=== PATIENT | female | born 1960 | race Caucasian/White ===

== ENCOUNTER 2018-10-25 23:17 | Emergency (ER) | payer OTHER ==
[~2018-10-25] VITALS: Ht 162.6 cm; Wt 68.0 kg
[~2018-10-25 23:17] MED LIST: ALBU90OI INH; BENZ100A PO; BUPR150ER; CEFD300 PO; CEPH500 PO; CEPHALEXIN; CLIN300 PO; CLON1 PO; Cleocin HCl150 MG PO; DOXY100 PO; ESTMEDA; IBUP800; INCARCERATION; METH40; OXYC5 PO; SULFAMETHOXAZOLE; SULTRIDS PO; TRIMETHOPRIM
[2018-10-26 00:01] LABS: BASOPHILS ABSOLUTE AUTO 0.06 K/mm3 (0.00-0.23); BASOPHILS PERCENT AUTO 1 % (0-2); EOSINOPHILS ABSOLUTE AUTO 0.25 K/mm3 (0.00-0.68); EOSINOPHILS PERCENT AUTO 3 % (0-6); Hematocrit 39.5 % (33.0-51.0); Hemoglobin 12.2 g/dL (11.5-16.0); IMMATURE GRAN ABSOLUTE AUTO 0.02 K/mm3 (0.00-0.10); IMMATURE GRAN PERCENT AUTO 0 % (0-1); LYMPHOCYTES ABSOLUTE AUTO 1.75 K/mm3 (0.84-5.20); LYMPHOCYTES PERCENT AUTO 21 % (21-46); MONOCYTES ABSOLUTE AUTO 0.67 K/mm3 (0.16-1.47); MONOCYTES PERCENT AUTO 8 % (4-13); Mean Corpuscular HGB 26.6 pg (26.0-34.0); Mean Corpuscular HGB Conc 30.9 g/dL (31.5-36.5); Mean Corpuscular Volume 86 fL (80-100); Mean Platelet Volume 9.4 fL (9.1-12.4); NEUTROPHILS ABSOLUTE AUTO 5.41 K/mm3 (1.96-9.15); NEUTROPHILS PERCENT AUTO 66 % (41-73); Platelet Count 257 K/mm3 (150-400); RDW Coefficient Variation 14.6 % (11.7-14.2); RDW Standard Deviation 45.9 fL (35.1-46.3); Red Blood Cell Count 4.59 M/mm3 (3.80-5.20); White Blood Cell Count 8.16 K/mm3 (4.00-11.30)
[2018-10-26] MEDS ORDERED: METH40 PO (00:04)
[2018-10-26 00:12] LABS: U Amphetamine Screen DETECTED; U Barbituate Screen Not Detected; U Benzodiazapine Screen Not Detected; U Buprenorphine Screen Not Detected; U Cannabinoids Screen Not Detected; U Cocaine Screen Not Detected; U Methadone Screen DETECTED; U Methamphetamine Screen Not Detected; U Opiates Screen Not Detected; U Oxycodone Screen Not Detected; U Phencyclidine Screen Not Detected
[2018-10-26 00:13] LABS: U Propoxyphene Screen Not Detected
[2018-10-26 00:17] LABS: Prothrombin Time Results 10.6 Sec (9.7-11.5)
[2018-10-26 00:20] LABS: Alanine Aminotransfer (ALT/SGP 77 U/L (12-78); Albumin, Blood 3.3 g/dL (3.4-5.0); Albumin/Globulin Ratio 0.7 (0.8-1.8); Alk Phos 104 U/L (50-136); Anion Gap 6 mmol/L (6-16); Aspartate Aminotrans (AST/SGOT 56 U/L (12-37); Bilirubin, Total 0.3 mg/dL (0.1-1.0); Blood Urea Nitrogen 17 mg/dL (8-24); Bun/Creatinine Ratio 23.8 (12.0-20.0); CO2, Blood 28 mmol/L (21-32); Calcium, Blood 8.7 mg/dL (8.5-10.1); Chloride, Blood 105 mmol/L (98-108); Creatinine, Blood 0.71 mg/dL (0.40-1.00); Ethanol (Alcohol), Blood, Med <3 mg/dL; Globulin, Blood 4.6 g/dL (2.2-4.0); Glomerular Filtration Rate >60 (60-); Glucose, Blood 108 mg/dL (70-99); Potassium, Blood 3.6 mmol/L (3.5-5.5); Sodium, Blood 139 mmol/L (136-145); Total Protein, Blood 7.9 g/dL (6.4-8.2)
== END 2018-10-26 01:00 | disposition short-term general hospital (02) ==
LOC: ER 23:17
PROVIDERS: Emergency Medicine
DX: I61.8 Other nontraumatic intracerebral hemorrhage (principal); Z88.8 Allergy status to other drugs, medicaments and biological substances; Z79.899 Other long term (current) drug therapy; F17.200 Nicotine dependence, unspecified, uncomplicated
CPT/HCPCS: 36415; 70450; 80053; 82947; 85025; 85610; 85730; 93005; 93010; 99285-25; G0480; J7050; P9612

== ENCOUNTER 2018-12-15 07:53 | Emergency (ER) | payer OTHER ==
[~2018-12-15] VITALS: Ht 160 cm; Wt 86.2 kg
[~2018-12-15 07:53] MED LIST changes: +METH40 PO
== END 2018-12-15 12:45 | disposition home or self-care (01) ==
LOC: ER 07:53
DX: S30.0XXA Contusion of lower back and pelvis, initial encounter (principal); F17.200 Nicotine dependence, unspecified, uncomplicated; X58.XXXA Exposure to other specified factors, initial encounter
CPT/HCPCS: 72100; 99283-25

== ENCOUNTER 2019-03-01 21:49 | Observation (INO) | payer OTHER ==
[~2019-03-01] VITALS: Ht 160 cm; Wt 69.0 kg
[2019-03-02 02:55] LABS: BASOPHILS ABSOLUTE AUTO 0.04 K/mm3 (0.00-0.23); BASOPHILS PERCENT AUTO 1 % (0-2); EOSINOPHILS ABSOLUTE AUTO 0.21 K/mm3 (0.00-0.68); EOSINOPHILS PERCENT AUTO 3 % (0-6); Hematocrit 37.4 % (33.0-51.0); Hemoglobin 11.6 g/dL (11.5-16.0); IMMATURE GRAN ABSOLUTE AUTO 0.01 K/mm3 (0.00-0.10); IMMATURE GRAN PERCENT AUTO 0 % (0-1); LYMPHOCYTES ABSOLUTE AUTO 1.68 K/mm3 (0.84-5.20); LYMPHOCYTES PERCENT AUTO 21 % (21-46); MONOCYTES ABSOLUTE AUTO 0.63 K/mm3 (0.16-1.47); MONOCYTES PERCENT AUTO 8 % (4-13); Mean Corpuscular HGB 26.2 pg (26.0-34.0); Mean Corpuscular Volume 84 fL (80-100); Mean Platelet Volume 9.6 fL (9.1-12.4); NEUTROPHILS ABSOLUTE AUTO 5.62 K/mm3 (1.96-9.15); NEUTROPHILS PERCENT AUTO 69 % (41-73); Platelet Count 323 K/mm3 (150-400); RDW Coefficient Variation 15.5 % (11.7-14.2); RDW Standard Deviation 47.8 fL (35.1-46.3); Red Blood Cell Count 4.43 M/mm3 (3.80-5.20); White Blood Cell Count 8.19 K/mm3 (4.00-11.30)
[2019-03-02 03:13] LABS: Alanine Aminotransfer (ALT/SGP 69 U/L (12-78); Albumin/Globulin Ratio 0.6 (0.8-1.8); Alk Phos 103 U/L (50-136); Anion Gap 4 mmol/L (6-16); Aspartate Aminotrans (AST/SGOT 52 U/L (12-37); Bilirubin, Total 0.5 mg/dL (0.1-1.0); Blood Urea Nitrogen 8 mg/dL (8-24); Bun/Creatinine Ratio 14.7 (12.0-20.0); CO2, Blood 29 mmol/L (21-32); Calcium, Blood 8.6 mg/dL (8.5-10.1); Chloride, Blood 105 mmol/L (98-108); Creatinine, Blood 0.54 mg/dL (0.40-1.00); Globulin, Blood 4.8 g/dL (2.2-4.0); Glomerular Filtration Rate >60 (60-); Glucose, Blood 108 mg/dL (70-99); Potassium, Blood 3.6 mmol/L (3.5-5.5); Sodium, Blood 138 mmol/L (136-145); Total Protein, Blood 7.8 g/dL (6.4-8.2)
[2019-03-02 03:27] LABS: International Normalized Ratio 0.99; Prothrombin Time Results 10.5 Sec (9.7-11.5)
[2019-03-02] MEDS ORDERED: METH10 PO (03:48)
--- NOTE | 2019-03-02 05:19 | NUR ---
PT CAME TO FLOOR AT 0410 VERY SLEEPY. SHE STATES SHE USED ABOUT "A POINT" OF HERROINE YESTERDAY AFTERNOON AT APPROX 1500 PRIOR TO BEING SEEN IN ED. SHE DOES AWAKEN ENOUGH TO ANSWERE BASIC QUESTIONS AND DOES ANWERE APPROPRIATELY. SHE IS VERY SLEEPY. VSS.
--- NOTE | 2019-03-02 05:41 | NUR ---
CALLED TO DR CROSS AND INFORMED HIM OF PT HERROINE USE. HE ORDERED URINE TOX SCREEN.
--- NOTE | 2019-03-02 07:33 | NUR ---
NOC SHIFT SUMMARY PT ADMITTED THIS NIGHT AT END OF SHIFT. SHE IS VERY SLEEPY AND DIFFICULT TO AROUSE THOUGH SHE IS AROUSABLE. PER BOYFRIEND PT USED SOME HERROIN RECENTLY. PT THEN ADMITTED TO HERROIN USE BUT STATES IT WAS YESTERDAY AT ABOUT 1500. SHE BECOMES MORE ALERT WHEN NARCAN IS DISCUSSED OR WHEN WET TOWEL IS PLACED ON FORHEAD. SHE ANSWERES QUESTIONS APPROPRIATELY. VSS. RESP EVEN AND UNLABORED, NOT SHALLOW. SHE IS ACTUALLY MORE ALERT NOW THAN SHE WAS ON ADMIT. DOES NOT APPEAR TO BE IN ANY ACUTE DISTRESS. CALLED TO HOSPITALIST AND INFORMED OF THIS. URINE TOX WAS ORDERED. REPORT TO ONCOMING RN.
--- NOTE | 2019-03-02 17:57 | NUR ---
PATIENT TO SURGERY: PATIENT TRANSFERRED TO DAY SURGERY. PATIENT EXPECTED TO BE MOVED TO PCU-12 AFTER SURGERY.
--- NOTE | 2019-03-02 19:51 | NUR ---
NURSING PCU DAYSHIFT SUMMARY: Assumed care of pt at approx 181. Arrived from HC via bed accompanied by HC staff x2. Pt arouses to physical stimuli, does not engage in conversation. R groin site, stable w/no bleed or hematoma noted. Several areas of of soft tissue swelling, redness, and heat noted along abd and outer L thigh. Family at bedside post procedure, update provided. No s/s of acute distress since arrival to unit, rpt provided to NOC RN.
[2019-03-02 20:48] LABS: U Amphetamine Screen Not Detected; U Barbituate Screen Not Detected; U Benzodiazapine Screen Not Detected; U Buprenorphine Screen Not Detected; U Cannabinoids Screen Not Detected; U Cocaine Screen Not Detected; U Methadone Screen DETECTED; U Methamphetamine Screen DETECTED; U Opiates Screen DETECTED; U Oxycodone Screen Not Detected; U Phencyclidine Screen Not Detected; U Propoxyphene Screen Not Detected
--- NOTE | 2019-03-03 07:43 | NUR ---
SHIFT SUMMARY PATIENT PLEASENT THROUGHOUT THE NIGHT BUT NOT VERY COOPERATIVE WITH LAYING STILL AND KEEPING HER RIGHT LEG STILL DURING THE RECOVERY PERIOD. HOWEVER, THERE IS NO BLEEDING OR LUMP FORMATION NOTED AT THE RIGHT GROIN SITE AT THIS TIME. PATIENT HAS RED HARD LUMPS ACCROSS ABD AND SCATTERED THROUGHOUT HER BODY. PATIENT STATED THAT THOSE HARD RED LUMPS ARE, "WHERE I SHOOT UP." PATIENT APPEARED TO SLEEP WELL THROUGHOUT MOST OF THE NIGHT. PATIENT MEDICATED FOR PAIN PER EMAR. VITAL SIGNS CHARTED. REPORT GIVEN TO ONCOMING RN.
[2019-03-03] MEDS ORDERED: ACET325 PO (13:12)
[2019-03-03] MEDS ORDERED: AMLO5 PO (13:13)
--- NOTE | 2019-03-03 15:00 | NUR ---
PT ALERT AND ORIENTED. VS HAVE REMAINED STABLE. RIGHT GROIN SITE REMAINS FREE FROM ANY HEMATOMA FORMATION OR BLEEDING. PT EDUCATED ABOUT CARE OF SITE. PT PROVIDED DISCHARGE INSTRUCTIONS AND EDUCATION. IV REMOVED. PT TAKEN OUT BY WHEELCHAIR.
== END 2019-03-03 14:59 | disposition home or self-care (01) ==
LOC: ER 21:49 → MEDS 21:50 → ER 03-02 03:47 → MEDS 03-02 03:47 → PCU 03-02 17:03 → MEDS 03-02 17:03 → PCU 03-02 17:04
PROVIDERS: Emergency Medicine; ADMIT Hospitalist
DX: I82.432 Acute embolism and thrombosis of left popliteal vein (principal); I48.0 Paroxysmal atrial fibrillation; I10 Essential (primary) hypertension; F15.11 Other stimulant abuse, in remission; Z86.73 Personal history of transient ischemic attack (TIA), and cerebral infarction without residual deficits; Z91.041 Radiographic dye allergy status; Z79.899 Other long term (current) drug therapy
CPT/HCPCS: 36415; 37191; 80053; 85025; 85610; 85730; 93971; 96374; 99152; 99153; 99284-25; C1769; C1880; G0378; J1200; J1720; J1885; J2250; J3010; J3490; J7030; Q9967

== ENCOUNTER 2019-03-09 22:23 | Emergency (ER) | payer OTHER ==
[~2019-03-09] VITALS: Ht 162.6 cm; Wt 72.1 kg
[~2019-03-09 22:23] MED LIST changes: +ACET325 PO; +AMLO5 PO; +METH10 PO
[2019-03-10] MEDS ORDERED: LISI20 PO (00:36)
== END 2019-03-10 00:50 | disposition home or self-care (01) ==
LOC: ER 22:23
DX: I82.402 Acute embolism and thrombosis of unspecified deep veins of left lower extremity (principal); I48.91 Unspecified atrial fibrillation; Z91.041 Radiographic dye allergy status; Z79.899 Other long term (current) drug therapy; F17.200 Nicotine dependence, unspecified, uncomplicated
CPT/HCPCS: 99282

== ENCOUNTER 2019-07-01 05:21 | Emergency (ER) | payer OTHER ==
[~2019-07-01] VITALS: Ht 162.6 cm; Wt 68.0 kg
[~2019-07-01 05:21] MED LIST changes: +LISI20 PO
[2019-07-01] MEDS ORDERED: Voltaren100 GM TOP (06:15)
== END 2019-07-01 06:43 | disposition home or self-care (01) ==
LOC: ER 05:21
DX: S46.911A Strain of unspecified muscle, fascia and tendon at shoulder and upper arm level, right arm, initial encounter (principal); W18.30XA Fall on same level, unspecified, initial encounter; Z86.73 Personal history of transient ischemic attack (TIA), and cerebral infarction without residual deficits; I48.91 Unspecified atrial fibrillation; F17.200 Nicotine dependence, unspecified, uncomplicated; Z88.8 Allergy status to other drugs, medicaments and biological substances
CPT/HCPCS: 73030; 96372; 99283-25; J1885

== ENCOUNTER 2019-07-20 16:37 | Emergency (ER) | payer OTHER ==
[~2019-07-20] VITALS: Ht 162.6 cm; Wt 68.0 kg
[~2019-07-20 16:37] MED LIST changes: +Voltaren100 GM TOP
[2019-07-20] MEDS ORDERED: ALBU90OI INH (17:39)
== END 2019-07-20 18:22 | disposition home or self-care (01) ==
LOC: ER 16:37
DX: R05 Cough (principal); R06.2 Wheezing; M25.511 Pain in right shoulder; F17.200 Nicotine dependence, unspecified, uncomplicated; Z88.8 Allergy status to other drugs, medicaments and biological substances
CPT/HCPCS: 71046; 94640; 99283-25; J1100

== ENCOUNTER 2019-07-28 21:00 | Emergency (ER) | payer OTHER ==
[~2019-07-28] VITALS: Ht 162.6 cm; Wt 59.0 kg
[2019-07-28] MEDS ORDERED: VOLTAREN100 GM TOP (23:12)
[2019-07-28] MEDS ORDERED: Bactrim Ds Tab1 EACH PO (23:12)
[2019-07-28] MEDS ORDERED: CEPH500 PO (23:12)
[2019-08-29] MEDS ORDERED: AMLO10 PO (10:58)
[2019-08-29] MEDS ORDERED: IBUP800 PO (10:58)
[2019-08-29] MEDS ORDERED: ZESTORETIC 20-121 EA PO (10:58)
== END 2019-07-28 23:23 | disposition home or self-care (01) ==
LOC: ER 21:00
DX: L02.415 Cutaneous abscess of right lower limb (principal); F17.200 Nicotine dependence, unspecified, uncomplicated; Z88.8 Allergy status to other drugs, medicaments and biological substances; Z86.73 Personal history of transient ischemic attack (TIA), and cerebral infarction without residual deficits
CPT/HCPCS: 10060; 99283-25; A9270-GY

== ENCOUNTER 2019-09-12 08:33 | Day surgery (SDC) | payer OTHER ==
[~2019-09-12] VITALS: Ht 157.5 cm; Wt 68.0 kg
[~2019-09-12 08:33] MED LIST changes: +AMLO10 PO; +Bactrim Ds Tab1 EACH PO; +IBUP800 PO; +VOLTAREN100 GM TOP; +ZESTORETIC 20-121 EA PO
--- NOTE | 2019-09-12 11:05 | NUR ---
PT TO RECOVERY ROOM POST PROCEDURE. PT IS DROWSY, BUT ANSWERS QUESTIONS APPROPRIATELY. PT DENIES PAIN, SOB OR NAUSEA. HR 70'S, B/P 136/81, AFEBRILE, SPO2 96% RA. R NECK ACCESS SITE NO SWELLING/HEMATOMA, MYRON AND TEGADERM DRSG INTACT-DRAINAGE MAPPED.
--- NOTE | 2019-09-12 13:20 | NUR ---
PT TOOK LUNCH WITHOUT PROBLEM. PT UP TO [facility] VOIDED 450; GAIT STEADY. PT'S SITE UNCHANGED AFTER ACTIVIY.
--- NOTE | 2019-09-12 13:40 | NUR ---
PT DRESSED WITH ASSISTANCE FROM BOYFRIEND, IV REMOVED-CANNULA INTACT.
--- NOTE | 2019-09-12 13:44 | NUR ---
PT AND BOYFRIEND RECEIVED DISCHARGE INSTRUCTIONS, MED LIST AND "AFTER CARE" INSTRUCTIONS; VERBALIZED GOOD UNDERSTANDING. PT LEFT FACILITY VIA W/C, CONDITION STABLE.
== END 2019-09-12 13:44 | disposition home or self-care (01) ==
LOC: MHTC 08:33
DX: I82.512 Chronic embolism and thrombosis of left femoral vein (principal); I82.532 Chronic embolism and thrombosis of left popliteal vein; I48.91 Unspecified atrial fibrillation; I10 Essential (primary) hypertension; F15.10 Other stimulant abuse, uncomplicated; Z88.8 Allergy status to other drugs, medicaments and biological substances; Z79.899 Other long term (current) drug therapy; Z91.041 Radiographic dye allergy status
CPT/HCPCS: 37193; 76937; 99152; 99153; C1769; C1773; C1880; C1894; J1200; J1644; J1720; J2250; J7030; Q9967

== ENCOUNTER 2019-11-11 09:36 | Emergency (ER) | payer OTHER ==
[~2019-11-11] VITALS: Ht 162.6 cm; Wt 67.1 kg
[2019-11-11] MEDS ORDERED: Cephalexin500 MG PO (12:49)
== END 2019-11-11 12:57 | disposition home or self-care (01) ==
LOC: ER 09:36
DX: L03.116 Cellulitis of left lower limb (principal); I48.91 Unspecified atrial fibrillation; Z79.899 Other long term (current) drug therapy; Z87.891 Personal history of nicotine dependence
CPT/HCPCS: 93971; 99283-25

== ENCOUNTER 2020-10-06 18:08 | Emergency (ER) | payer OTHER ==
[~2020-10-06] VITALS: Ht 160 cm; Wt 78.5 kg
[~2020-10-06 18:08] MED LIST changes: +Cephalexin500 MG PO
[2020-10-06 18:58] LABS: BASOPHILS ABSOLUTE AUTO 0.06 K/mm3 (0.00-0.23); BASOPHILS PERCENT AUTO 1 % (0-2); EOSINOPHILS ABSOLUTE AUTO 0.26 K/mm3 (0.00-0.68); EOSINOPHILS PERCENT AUTO 4 % (0-6); Hematocrit 38.7 % (33.0-51.0); Hemoglobin 11.6 g/dL (11.5-16.0); IMMATURE GRAN ABSOLUTE AUTO 0.01 K/mm3 (0.00-0.10); IMMATURE GRAN PERCENT AUTO 0 % (0-1); LYMPHOCYTES ABSOLUTE AUTO 1.47 K/mm3 (0.84-5.20); LYMPHOCYTES PERCENT AUTO 20 % (21-46); MONOCYTES ABSOLUTE AUTO 0.41 K/mm3 (0.16-1.47); MONOCYTES PERCENT AUTO 6 % (4-13); Mean Corpuscular HGB 25.7 pg (26.0-34.0); Mean Corpuscular Volume 86 fL (80-100); Mean Platelet Volume 9.6 fL (9.1-12.4); NEUTROPHILS ABSOLUTE AUTO 5.01 K/mm3 (1.96-9.15); NEUTROPHILS PERCENT AUTO 69 % (41-73); Platelet Count 325 K/mm3 (150-400); RDW Coefficient Variation 15.5 % (11.7-14.2); RDW Standard Deviation 48.2 fL (35.1-46.3); Red Blood Cell Count 4.51 M/mm3 (3.80-5.20); White Blood Cell Count 7.22 K/mm3 (4.00-11.30)
[2020-10-06 19:19] LABS: Alanine Aminotransfer (ALT/SGP 53 U/L (12-78); Albumin, Blood 3.3 g/dL (3.4-5.0); Albumin/Globulin Ratio 0.7 (0.8-1.8); Alk Phos 100 U/L (50-136); Anion Gap 6 mmol/L (6-16); Aspartate Aminotrans (AST/SGOT 43 U/L (12-37); Bilirubin, Total 0.3 mg/dL (0.1-1.0); Blood Urea Nitrogen 8 mg/dL (8-24); Bun/Creatinine Ratio 17.6 (12.0-20.0); CO2, Blood 26 mmol/L (21-32); Calcium, Blood 8.9 mg/dL (8.5-10.1); Chloride, Blood 104 mmol/L (98-108); Creatinine, Blood 0.46 mg/dL (0.40-1.00); Globulin, Blood 4.8 g/dL (2.2-4.0); Glomerular Filtration Rate >60 (60-); Glucose, Blood 155 mg/dL (70-99); Potassium, Blood 3.8 mmol/L (3.5-5.5); Sodium, Blood 136 mmol/L (136-145); Total Protein, Blood 8.1 g/dL (6.4-8.2); Troponin I <0.015 ng/mL (0.000-0.040)
== END 2020-10-06 20:31 | disposition home or self-care (01) ==
LOC: ER 18:08
PROVIDERS: Emergency Medicine
DX: R06.02 Shortness of breath (principal); R60.0 Localized edema; F15.10 Other stimulant abuse, uncomplicated; I69.359 Hemiplegia and hemiparesis following cerebral infarction affecting unspecified side; I48.91 Unspecified atrial fibrillation; Z91.041 Radiographic dye allergy status; Z88.8 Allergy status to other drugs, medicaments and biological substances; Z86.718 Personal history of other venous thrombosis and embolism; Z79.899 Other long term (current) drug therapy; Z87.891 Personal history of nicotine dependence
CPT/HCPCS: 36415; 71045; 80053; 83880; 84484; 85025; 93005; 93010; 93971; 94640; 99285-25

== ENCOUNTER 2020-10-08 03:48 | Observation (INO) | payer OTHER ==
[~2020-10-08] VITALS: Ht 160 cm; Wt 81.5 kg
[2020-10-08 04:51] LABS: BASOPHILS ABSOLUTE AUTO 0.04 K/mm3 (0.00-0.23); BASOPHILS PERCENT AUTO 0 % (0-2); EOSINOPHILS ABSOLUTE AUTO 0.04 K/mm3 (0.00-0.68); EOSINOPHILS PERCENT AUTO 0 % (0-6); Hematocrit 35.4 % (33.0-51.0); Hemoglobin 10.9 g/dL (11.5-16.0); IMMATURE GRAN ABSOLUTE AUTO 0.09 K/mm3 (0.00-0.10); IMMATURE GRAN PERCENT AUTO 1 % (0-1); LYMPHOCYTES ABSOLUTE AUTO 2.18 K/mm3 (0.84-5.20); LYMPHOCYTES PERCENT AUTO 13 % (21-46); MONOCYTES ABSOLUTE AUTO 1.05 K/mm3 (0.16-1.47); MONOCYTES PERCENT AUTO 6 % (4-13); Mean Corpuscular HGB 26.4 pg (26.0-34.0); Mean Corpuscular HGB Conc 30.8 g/dL (31.5-36.5); Mean Corpuscular Volume 86 fL (80-100); Mean Platelet Volume 9.4 fL (9.1-12.4); NEUTROPHILS ABSOLUTE AUTO 13.98 K/mm3 (1.96-9.15); NEUTROPHILS PERCENT AUTO 81 % (41-73); Platelet Count 425 K/mm3 (150-400); RDW Coefficient Variation 15.5 % (11.7-14.2); RDW Standard Deviation 48.5 fL (35.1-46.3); Red Blood Cell Count 4.13 M/mm3 (3.80-5.20); White Blood Cell Count 17.38 K/mm3 (4.00-11.30)
[2020-10-08 05:04] LABS: Anion Gap 5 mmol/L (6-16); Blood Urea Nitrogen 20 mg/dL (8-24); Bun/Creatinine Ratio 36.5 (12.0-20.0); CO2, Blood 31 mmol/L (21-32); Calcium, Blood 8.9 mg/dL (8.5-10.1); Chloride, Blood 101 mmol/L (98-108); Creatinine, Blood 0.55 mg/dL (0.40-1.00); Glomerular Filtration Rate >60 (60-); Glucose, Blood 131 mg/dL (70-99); Sodium, Blood 137 mmol/L (136-145); Troponin I <0.015 ng/mL (0.000-0.040)
[2020-10-08] MEDS ORDERED: HYDCHL12.5 PO (09:26)
[2020-10-08] MEDS ORDERED: LISI20 PO (09:26)
[2020-10-08 11:17] LABS: Hematocrit 34.7 % (33.0-51.0); Hemoglobin 10.6 g/dL (11.5-16.0)
[2020-10-08 11:38] LABS: Source, Urine Clean Catch
[2020-10-08 11:41] LABS: Appearance, Urine Clear (Clear); Bilirubin, Urine Neg (Neg); Blood, Urine Neg (Neg); Color, Urine Yellow (P-Yellow); Glucose Qualitative, Urine Neg (Neg); Ketones, Urine Neg (Neg); Leukocyte Esterase, Urine Neg (Neg); Nitrite, Urine Neg (Neg); Protein, Urine Neg (Neg); Specific Gravity, Urine 1.015 (1.003-1.022); Urobilinogen, Urine NORM (Normal)
[2020-10-08 11:58] LABS: U Amphetamine Screen Not Detected; U Barbituate Screen Not Detected
[2020-10-08 11:59] LABS: U Benzodiazapine Screen Not Detected; U Buprenorphine Screen Not Detected; U Cannabinoids Screen Not Detected; U Cocaine Screen Not Detected; U Methadone Screen Not Detected; U Methamphetamine Screen DETECTED; U Opiates Screen DETECTED; U Oxycodone Screen Not Detected; U Phencyclidine Screen Not Detected; U Propoxyphene Screen Not Detected
[2020-10-08 16:53] LABS: Hematocrit 36.1 % (33.0-51.0)
--- NOTE | 2020-10-08 19:09 | NUR ---
SHIFT SUMMARY TRESA DENIED PAIN THIS SHIFT. UP TO BSC WITH AO1/2. HAS L SIDE DEFICIT FROM PRIOR STROKE. 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 NO OPEN WOUNDS. PER INF CONTROL, NO NEED FOR ISO. PT FULLY ORIENTED. ON 3 L OXYGEN. NO EMESIS THIS SHIFT. GI CONSULT CALLED FOR COFFEE GROUND EMESIS, DR BAZZI AWARE. TELE SHOWING NSR. TOOK MEDS PRESCRIBED. CALL LIGHT IN REACH, BED ALARM ON, GIVING REPORT TO NIGHT NURSE
[2020-10-09 04:55] LABS: BASOPHILS ABSOLUTE AUTO 0.03 K/mm3 (0.00-0.23); BASOPHILS PERCENT AUTO 0 % (0-2); EOSINOPHILS ABSOLUTE AUTO 0.05 K/mm3 (0.00-0.68); EOSINOPHILS PERCENT AUTO 0 % (0-6); Hematocrit 34.1 % (33.0-51.0); Hemoglobin 10.3 g/dL (11.5-16.0); IMMATURE GRAN ABSOLUTE AUTO 0.06 K/mm3 (0.00-0.10); IMMATURE GRAN PERCENT AUTO 1 % (0-1); LYMPHOCYTES ABSOLUTE AUTO 2.82 K/mm3 (0.84-5.20); LYMPHOCYTES PERCENT AUTO 24 % (21-46); MONOCYTES ABSOLUTE AUTO 0.77 K/mm3 (0.16-1.47); MONOCYTES PERCENT AUTO 7 % (4-13); Mean Corpuscular HGB 25.4 pg (26.0-34.0); Mean Corpuscular HGB Conc 30.2 g/dL (31.5-36.5); Mean Corpuscular Volume 84 fL (80-100); Mean Platelet Volume 9.1 fL (9.1-12.4); NEUTROPHILS PERCENT AUTO 68 % (41-73); Platelet Count 332 K/mm3 (150-400); RDW Coefficient Variation 15.6 % (11.7-14.2); RDW Standard Deviation 48.4 fL (35.1-46.3); Red Blood Cell Count 4.05 M/mm3 (3.80-5.20); White Blood Cell Count 11.63 K/mm3 (4.00-11.30)
[2020-10-09 05:12] LABS: Anion Gap 5 mmol/L (6-16); Blood Urea Nitrogen 20 mg/dL (8-24); Bun/Creatinine Ratio 32.2 (12.0-20.0); CO2, Blood 30 mmol/L (21-32); Calcium, Blood 8.8 mg/dL (8.5-10.1); Chloride, Blood 102 mmol/L (98-108); Creatinine, Blood 0.62 mg/dL (0.40-1.00); Glomerular Filtration Rate >60 (60-); Glucose, Blood 105 mg/dL (70-99); Potassium, Blood 4.2 mmol/L (3.5-5.5); Sodium, Blood 137 mmol/L (136-145)
--- NOTE | 2020-10-09 06:12 | NUR ---
SHIFT SUMMARY PT IS A 59 Y/O FEMALE, ADMITTED FOR ACUTE RESPIRATORY FAILURE. PT IS A&O X 3, THOUGH VERY LETHARGIC. PT SLEPT WELL THROUGH THE NIGHT. NO C/O PAIN, NAUSEA OR SOB. VITAL SIGNS STABLE. NO ACUTE CHANGES IN PT CONDITION NOTED DURING THE NIGHT. WILL CONTINUE TO MONITOR AND TREAT PER EMAR UNTIL HAND OFF TO DAY SHIFT RN.
--- NOTE | 2020-10-09 15:46 | NUR ---
Spiritual care/Advance Directive education visit attempted. Upon receiving an admit referral for spiritual care and advance directive education, I visit patient. Patient tells me about the places that she lived and her race horses. She begins talking about her Ep[employer]alian tiffany and her calls. I leave the rm to let them talk and then make 3 more attmpts later in the day to respond to the referrals and patient is on the phone all 3 times. I will reach out again next day.
[2020-10-09] MEDS ORDERED: NORVASC10 MG PO (16:17)
[2020-10-09] MEDS ORDERED: ALBU90OI INH (16:18)
[2020-10-09] MEDS ORDERED: FAMO40 PO (16:19)
--- NOTE | 2020-10-09 18:25 | NUR ---
DISCHARGE SUMMARY PT A/O X3; PLEASANT AND COOPERATIVE WITH CARE. PT LUNGS SOUNDED DIM AND WHEEZY AT TIMES. 1 PERSON ASSIST TO THE BSC. LEFT SIDE DEFICIT DUE TO PAST CVA. NO COFFEE GROUND EMESIS OR BLOODY STOOLS THIS SHIFT. INSTRUCTED TO FOLLOW UP WITH PCP AND GASTRO FOR POSSIBLE EGD OUT PATIENT. IV DC WNL. VSS; PT DRIVEN HOME BY .
[2020-10-16 15:10] LABS: 6-ACETYLMORPHINE 169 (.)
== END 2020-10-09 18:00 | disposition home or self-care (01) ==
LOC: ER 03:48 → MEDS 03:49 → ER 05:36 → MEDS 05:36
PROVIDERS: Student in an Organized Health Care Education/Training Program; ADMIT Family Medicine
DX: J96.01 Acute respiratory failure with hypoxia (principal); J44.1 Chronic obstructive pulmonary disease with (acute) exacerbation; I10 Essential (primary) hypertension; K92.0 Hematemesis; F15.10 Other stimulant abuse, uncomplicated; F11.10 Opioid abuse, uncomplicated; D72.829 Elevated white blood cell count, unspecified; D64.9 Anemia, unspecified; D47.3 Essential (hemorrhagic) thrombocythemia; K59.00 Constipation, unspecified; Z72.0 Tobacco use; Z29.8 Encounter for other specified prophylactic measures; Z79.899 Other long term (current) drug therapy; Z88.8 Allergy status to other drugs, medicaments and biological substances; Z91.041 Radiographic dye allergy status; Z79.1 Long term (current) use of non-steroidal anti-inflammatories (NSAID); Z79.51 Long term (current) use of inhaled steroids
CPT/HCPCS: 36415; 71045; 80048; 81003; 83605; 84145; 84484; 85014; 85018; 85025; 87040; 93005; 93010; 94640; 94760; 96374; 96376; 99285-25; A9270; C9113; G0378; G0480; J7512

== ENCOUNTER 2020-12-12 15:20 | Emergency (ER) | payer OTHER ==
[~2020-12-12] VITALS: Ht 160 cm; Wt 81.7 kg
[~2020-12-12 15:20] MED LIST changes: +FAMO40 PO; +HYDCHL12.5 PO; +NORVASC10 MG PO
[2020-12-12 16:25] LABS: BASOPHILS ABSOLUTE AUTO 0.07 K/mm3 (0.00-0.23); BASOPHILS PERCENT AUTO 1 % (0-2); EOSINOPHILS ABSOLUTE AUTO 0.32 K/mm3 (0.00-0.68); EOSINOPHILS PERCENT AUTO 3 % (0-6); Hematocrit 34.2 % (33.0-51.0); Hemoglobin 10.4 g/dL (11.5-16.0); IMMATURE GRAN ABSOLUTE AUTO 0.03 K/mm3 (0.00-0.10); IMMATURE GRAN PERCENT AUTO 0 % (0-1); LYMPHOCYTES ABSOLUTE AUTO 1.73 K/mm3 (0.84-5.20); LYMPHOCYTES PERCENT AUTO 19 % (21-46); MONOCYTES ABSOLUTE AUTO 0.68 K/mm3 (0.16-1.47); MONOCYTES PERCENT AUTO 7 % (4-13); Mean Corpuscular HGB 24.5 pg (26.0-34.0); Mean Corpuscular HGB Conc 30.4 g/dL (31.5-36.5); Mean Corpuscular Volume 81 fL (80-100); Mean Platelet Volume 9.2 fL (9.1-12.4); NEUTROPHILS ABSOLUTE AUTO 6.45 K/mm3 (1.96-9.15); NEUTROPHILS PERCENT AUTO 70 % (41-73); Platelet Count 343 K/mm3 (150-400); RDW Coefficient Variation 15.9 % (11.7-14.2); RDW Standard Deviation 46.2 fL (35.1-46.3); Red Blood Cell Count 4.25 M/mm3 (3.80-5.20); White Blood Cell Count 9.28 K/mm3 (4.00-11.30)
[2020-12-12 16:54] LABS: Alanine Aminotransfer (ALT/SGP 69 U/L (12-78); Albumin, Blood 3.3 g/dL (3.4-5.0); Albumin/Globulin Ratio 0.7 (0.8-1.8); Alk Phos 104 U/L (50-136); Anion Gap 7 mmol/L (6-16); Aspartate Aminotrans (AST/SGOT 61 U/L (12-37); Bilirubin, Total 0.3 mg/dL (0.1-1.0); Blood Urea Nitrogen 12 mg/dL (8-24); Bun/Creatinine Ratio 21.7 (12.0-20.0); CO2, Blood 27 mmol/L (21-32); Chloride, Blood 101 mmol/L (98-108); Creatinine, Blood 0.55 mg/dL (0.40-1.00); Globulin, Blood 4.9 g/dL (2.2-4.0); Glomerular Filtration Rate >60 (60-); Glucose, Blood 141 mg/dL (70-99); Potassium, Blood 3.7 mmol/L (3.5-5.5); Sodium, Blood 135 mmol/L (136-145); Total Protein, Blood 8.2 g/dL (6.4-8.2); Troponin I <0.015 ng/mL (0.000-0.040)
== END 2020-12-12 19:45 | disposition left against medical advice (07) ==
LOC: ER 15:20
PROVIDERS: Physician Assistant
DX: R06.02 Shortness of breath (principal); R50.9 Fever, unspecified; M79.89 Other specified soft tissue disorders; Z79.899 Other long term (current) drug therapy; Z53.21 Procedure and treatment not carried out due to patient leaving prior to being seen by health care provider
CPT/HCPCS: 36415; 80053; 84484; 85025; 93005; 93010; 99284-25

== ENCOUNTER 2021-03-21 18:19 | Emergency (ER) | payer OTHER ==
[~2021-03-21] VITALS: Ht 160 cm; Wt 86.2 kg
[2021-03-21 19:39] LABS: BASOPHILS ABSOLUTE AUTO 0.04 K/mm3 (0.00-0.23); BASOPHILS PERCENT AUTO 1 % (0-2); EOSINOPHILS PERCENT AUTO 2 % (0-6); Hematocrit 34.9 % (33.0-51.0); Hemoglobin 10.6 g/dL (11.5-16.0); IMMATURE GRAN ABSOLUTE AUTO 0.04 K/mm3 (0.00-0.10); IMMATURE GRAN PERCENT AUTO 1 % (0-1); LYMPHOCYTES ABSOLUTE AUTO 1.45 K/mm3 (0.84-5.20); LYMPHOCYTES PERCENT AUTO 17 % (21-46); MONOCYTES ABSOLUTE AUTO 0.47 K/mm3 (0.16-1.47); MONOCYTES PERCENT AUTO 6 % (4-13); Mean Corpuscular HGB 23.8 pg (26.0-34.0); Mean Corpuscular HGB Conc 30.4 g/dL (31.5-36.5); Mean Corpuscular Volume 78 fL (80-100); Mean Platelet Volume 8.9 fL (9.1-12.4); NEUTROPHILS ABSOLUTE AUTO 6.31 K/mm3 (1.96-9.15); NEUTROPHILS PERCENT AUTO 74 % (41-73); Platelet Count 357 K/mm3 (150-400); RDW Coefficient Variation 17.2 % (11.7-14.2); RDW Standard Deviation 48.5 fL (35.1-46.3); Red Blood Cell Count 4.45 M/mm3 (3.80-5.20); White Blood Cell Count 8.51 K/mm3 (4.00-11.30)
[2021-03-21 19:57] LABS: Troponin I <0.015 ng/mL (0.000-0.040)
[2021-03-21 20:00] LABS: Alanine Aminotransfer (ALT/SGP 47 U/L (12-78); Albumin, Blood 3.3 g/dL (3.4-5.0); Albumin/Globulin Ratio 0.6 (0.8-1.8); Alk Phos 94 U/L (50-136); Anion Gap 8 mmol/L (6-16); Aspartate Aminotrans (AST/SGOT 42 U/L (12-37); Bilirubin, Total 0.4 mg/dL (0.1-1.0); Blood Urea Nitrogen 13 mg/dL (8-24); Bun/Creatinine Ratio 21.3 (12.0-20.0); CO2, Blood 25 mmol/L (21-32); Chloride, Blood 101 mmol/L (98-108); Creatinine, Blood 0.61 mg/dL (0.40-1.00); Globulin, Blood 5.6 g/dL (2.2-4.0); Glomerular Filtration Rate >60 (60-); Glucose, Blood 193 mg/dL (70-99); Potassium, Blood 3.7 mmol/L (3.5-5.5); Sodium, Blood 134 mmol/L (136-145); Total Protein, Blood 8.9 g/dL (6.4-8.2)
[2021-03-21] MEDS ORDERED: FURO20 (21:32)
[2021-03-21] MEDS ORDERED: OMEP20ER PO (21:34)
== END 2021-03-21 22:16 | disposition home or self-care (01) ==
LOC: ER 18:19
PROVIDERS: Physician Assistant
DX: R60.0 Localized edema (principal); J44.9 Chronic obstructive pulmonary disease, unspecified; F17.210 Nicotine dependence, cigarettes, uncomplicated; Z88.8 Allergy status to other drugs, medicaments and biological substances; Z91.041 Radiographic dye allergy status; Z79.899 Other long term (current) drug therapy
CPT/HCPCS: 36415; 71046; 80053; 83880; 84484; 85025; 93005; 93010; 99284-25

== ENCOUNTER → 2021-03-24 | Outpatient (CLI) | payer OTHER ==
[~2021-03-24] MED LIST changes: +FURO20; +OMEP20ER PO
== END | disposition home or self-care (01) ==
LOC: LAB 16:50 → LAB SHORT 16:50
DX: R60.9 Edema, unspecified (principal)
CPT/HCPCS: 84156

== ENCOUNTER 2021-08-28 04:00 | Emergency (ER) | payer OTHER ==
[~2021-08-28] VITALS: Ht 160 cm; Wt 77.1 kg
[2021-08-28 04:36] LABS: BASOPHILS ABSOLUTE AUTO 0.07 K/mm3 (0.00-0.23); BASOPHILS PERCENT AUTO 1 % (0-2); EOSINOPHILS ABSOLUTE AUTO 0.25 K/mm3 (0.00-0.68); EOSINOPHILS PERCENT AUTO 2 % (0-6); Hematocrit 40.2 % (33.0-51.0); IMMATURE GRAN ABSOLUTE AUTO 0.05 K/mm3 (0.00-0.10); IMMATURE GRAN PERCENT AUTO 0 % (0-1); LYMPHOCYTES PERCENT AUTO 12 % (21-46); MONOCYTES ABSOLUTE AUTO 0.72 K/mm3 (0.16-1.47); MONOCYTES PERCENT AUTO 6 % (4-13); Mean Corpuscular HGB 22.3 pg (26.0-34.0); Mean Corpuscular HGB Conc 29.9 g/dL (31.5-36.5); Mean Corpuscular Volume 75 fL (80-100); NEUTROPHILS ABSOLUTE AUTO 9.51 K/mm3 (1.96-9.15); NEUTROPHILS PERCENT AUTO 79 % (41-73); Platelet Count 439 K/mm3 (150-400); RDW Coefficient Variation 18.8 % (11.7-14.2); RDW Standard Deviation 49.1 fL (35.1-46.3); Red Blood Cell Count 5.37 M/mm3 (3.80-5.20)
[2021-08-28 05:25] LABS: Alanine Aminotransfer (ALT/SGP 31 U/L (12-78); Albumin, Blood 3.4 g/dL (3.4-5.0); Albumin/Globulin Ratio 0.6 (0.8-1.8); Alk Phos 114 U/L (50-136); Anion Gap 7 mmol/L (6-16); Aspartate Aminotrans (AST/SGOT 39 U/L (12-37); Bilirubin, Total 0.6 mg/dL (0.1-1.0); Blood Urea Nitrogen 13 mg/dL (8-24); Bun/Creatinine Ratio 19.9 (12.0-20.0); CO2, Blood 27 mmol/L (21-32); Calcium, Blood 9.2 mg/dL (8.5-10.1); Chloride, Blood 103 mmol/L (98-108); Creatinine, Blood 0.65 mg/dL (0.40-1.00); Globulin, Blood 5.5 g/dL (2.2-4.0); Glomerular Filtration Rate >60 (60-); Glucose, Blood 116 mg/dL (70-99); Magnesium, Blood 2.4 mg/dL (1.6-2.4); Potassium, Blood 4.2 mmol/L (3.5-5.5); Sodium, Blood 137 mmol/L (136-145); Total Protein, Blood 8.9 g/dL (6.4-8.2); Troponin I <0.015 ng/mL (0.000-0.040)
[2021-08-28 05:31] LABS: Influenza A, PCR NEGATIVE (NEGATIVE); Influenza B, PCR NEGATIVE (NEGATIVE); Resp Syncytial Virus, PCR NEGATIVE (NEGATIVE); SARS-Cov-2 (COVID-19) PCR, MMC NEGATIVE (NEGATIVE)
[2021-08-28 05:44] LABS: PCO2 Arterial 52.3 mmHg (35-45); PO2 Arterial 65.9 mmHg (80-100); pH Blood Arterial 7.36 (7.35-7.45)
[2021-08-28] MEDS ORDERED: Naloxone HC1 MG/1 ML IM (16:21)
== END 2021-08-28 17:18 | disposition home or self-care (01) ==
LOC: ER 04:00
PROVIDERS: Student in an Organized Health Care Education/Training Program
DX: T40.1X1A Poisoning by heroin, accidental (unintentional), initial encounter (principal); R00.0 Tachycardia, unspecified; R06.2 Wheezing; R09.02 Hypoxemia; I48.91 Unspecified atrial fibrillation; J44.9 Chronic obstructive pulmonary disease, unspecified; F17.210 Nicotine dependence, cigarettes, uncomplicated; Z79.899 Other long term (current) drug therapy; Z91.041 Radiographic dye allergy status; Z88.8 Allergy status to other drugs, medicaments and biological substances
CPT/HCPCS: 0241U; 36415; 36600; 71045; 78580; 80053; 82803; 83735; 83880; 84145; 84484; 85025; 93005; 93010; 94644; 96374; 96375; 99284-25; A9270; A9540; J1200; J2310; J2930

== ENCOUNTER 2021-11-20 13:20 | Emergency (ER) | payer OTHER ==
[~2021-11-20] VITALS: Ht 162.6 cm; Wt 77.1 kg
[~2021-11-20 13:20] MED LIST changes: +Naloxone HC1 MG/1 ML IM
[2021-11-20] MEDS ORDERED: Ventolin/Prove6.7 GM INH ×2 (15:54→16:04)
[2021-11-20] MEDS ORDERED: METPRE4DP PO ×2 (15:54→16:04)
[2021-11-20] MEDS ORDERED: Zithromax250 MG PO ×2 (15:54→16:04)
== END 2021-11-20 16:06 | disposition home or self-care (01) ==
LOC: ER 13:20
DX: J44.9 Chronic obstructive pulmonary disease, unspecified (principal); F17.210 Nicotine dependence, cigarettes, uncomplicated; Z79.899 Other long term (current) drug therapy; Z88.8 Allergy status to other drugs, medicaments and biological substances; Z20.822 Contact with and (suspected) exposure to COVID-19
CPT/HCPCS: 71046; 94640; 99283-25

== ENCOUNTER 2022-08-19 21:15 | Inpatient (IN) | payer OTHER ==
[~2022-08-19] VITALS: Ht 160 cm; Wt 75.7 kg
[~2022-08-19 21:15] MED LIST changes: +METPRE4DP PO; +Ventolin/Prove6.7 GM INH; +Zithromax250 MG PO
[2022-08-19 22:24] LABS: Albumin, Blood 2.9 g/dL (3.4-5.0); Albumin/Globulin Ratio 0.5 (0.8-1.8); Bilirubin, Total 1.4 mg/dL (0.1-1.0); Bun/Creatinine Ratio 10.9 (12.0-20.0); Calcium, Blood 8.8 mg/dL (8.5-10.1); Creatinine, Blood 0.73 mg/dL (0.40-1.00); Globulin, Blood 6.1 g/dL (2.2-4.0); Potassium, Blood 4.4 mmol/L (3.5-5.5)
[2022-08-19 22:40] LABS: BASOPHILS ABSOLUTE AUTO 0.06 K/mm3 (0.00-0.23); BASOPHILS PERCENT AUTO 0 % (0-2); EOSINOPHILS ABSOLUTE AUTO 0.02 K/mm3 (0.00-0.68); EOSINOPHILS PERCENT AUTO 0 % (0-6); Hematocrit 33.8 % (33.0-51.0); Hemoglobin 10.2 g/dL (11.5-16.0); IMMATURE GRAN ABSOLUTE AUTO 0.27 K/mm3 (0.00-0.10); IMMATURE GRAN PERCENT AUTO 1 % (0-1); LYMPHOCYTES ABSOLUTE AUTO 1.17 K/mm3 (0.84-5.20); LYMPHOCYTES PERCENT AUTO 5 % (21-46); MONOCYTES ABSOLUTE AUTO 1.19 K/mm3 (0.16-1.47); MONOCYTES PERCENT AUTO 5 % (4-13); Mean Corpuscular HGB 20.8 pg (26.0-34.0); Mean Corpuscular HGB Conc 30.2 g/dL (31.5-36.5); Mean Corpuscular Volume 69 fL (80-100); Mean Platelet Volume 9.4 fL (9.1-12.4); NEUTROPHILS ABSOLUTE AUTO 22.56 K/mm3 (1.96-9.15); NEUTROPHILS PERCENT AUTO 89 % (41-73); NRBC ABSOLUTE 0.02 K/mm3 (0.00-0.02); NRBC Auto 0.1 /100 WBC (0.0-0.2); Platelet Count 398 K/mm3 (150-400); RDW Standard Deviation 46.2 fL (35.1-46.3); White Blood Cell Count 25.27 K/mm3 (4.00-11.30)
[2022-08-19 23:12] LABS: Influenza A, PCR NEGATIVE (NEGATIVE); Influenza B, PCR NEGATIVE (NEGATIVE); Resp Syncytial Virus, PCR NEGATIVE (NEGATIVE); SARS-Cov-2 (COVID-19) PCR, MMC NEGATIVE (NEGATIVE)
--- NOTE | 2022-08-20 02:43 | NUR ---
PATIENT TO ICU 3 FROM ER AT 0145. PATIENT IS ALERT AND ORIENTED X4. 02 SATS 94% ON 5L NC, RR 20, LS DIMINISHED. HR ST 105, BP STABLE, DENIES CP PRESSURE. USES BEDPAN. WOUNDS T/O, SEE PHOTOS IN CHART. WHEELCHAIR AT BASELINE. HX CVA WITH LEFT SIDED WEAKNESS. CALL LIGHT IN REACH, SEE ADMIT ASSESSMENT FOR MORE INFORMATION
[2022-08-20 03:38] LABS: BASOPHILS ABSOLUTE AUTO 0.05 K/mm3 (0.00-0.23); BASOPHILS PERCENT AUTO 0 % (0-2); EOSINOPHILS PERCENT AUTO 0 % (0-6); IMMATURE GRAN ABSOLUTE AUTO 0.56 K/mm3 (0.00-0.10); IMMATURE GRAN PERCENT AUTO 2 % (0-1); LYMPHOCYTES ABSOLUTE AUTO 0.63 K/mm3 (0.84-5.20); LYMPHOCYTES PERCENT AUTO 2 % (21-46); MONOCYTES ABSOLUTE AUTO 0.93 K/mm3 (0.16-1.47); MONOCYTES PERCENT AUTO 3 % (4-13); Mean Corpuscular HGB 20.8 pg (26.0-34.0); Mean Corpuscular HGB Conc 30.3 g/dL (31.5-36.5); Mean Corpuscular Volume 69 fL (80-100); Mean Platelet Volume 9.9 fL (9.1-12.4); NEUTROPHILS ABSOLUTE AUTO 28.09 K/mm3 (1.96-9.15); NEUTROPHILS PERCENT AUTO 93 % (41-73); Platelet Count 420 K/mm3 (150-400); RDW Coefficient Variation 18.8 % (11.7-14.2); RDW Standard Deviation 46.9 fL (35.1-46.3); White Blood Cell Count 30.26 K/mm3 (4.00-11.30)
[2022-08-20 04:33] LABS: Albumin, Blood 2.7 g/dL (3.4-5.0); Albumin/Globulin Ratio 0.4 (0.8-1.8); Bilirubin, Total 1.1 mg/dL (0.1-1.0); Bun/Creatinine Ratio 11.9 (12.0-20.0); Calcium, Blood 8.6 mg/dL (8.5-10.1); Creatinine, Blood 0.76 mg/dL (0.40-1.00); Potassium, Blood 3.2 mmol/L (3.5-5.5); Total Protein, Blood 8.7 g/dL (6.4-8.2)
--- NOTE | 2022-08-20 05:48 | NUR ---
SHIFT SUMMARY PATIENT IS ALERT AND ORIENTED X4. 02 SATS 93% ON 2L VIA NC, DENIES SOB. HR ST 105. BP STABLE. USES BEDPAN, URINE OUTPUT OF 1500 THIS SHIFT. ASSISTANCE WITH REPOSITIONING. REPLACED POTASSIUM THIS AM. CALL LIGHT IN REACH
--- NOTE | 2022-08-20 07:15 | NUR ---
Assumed care of pt at 0700. Report received from Abigail BRYSON. Pt A&O x 4. Pleasant and cooperative with care. Answers questions, follows commands, verbalizes needs. Pleasant and cooperative with care. SpO2 90% or greater with 2 LPM NC.
--- NOTE | 2022-08-20 11:47 | NUR ---
Patient reports frequent methamphetamine and heroin use. Most recent dose on Wednesday. Reports that she takes these substances, often mixing them, by intramuscular injection in the morning and evening. Smokes methamphetamine during the day "to keep myself going". Reports that she has "quit smoking" and elborates that she quit buying cigarettes approx 1 month ago, however people around her smoke and so she smokes their cigarettes. Offered nicotine patch, patient declines and states that she does not have any cigarette cravings right now.
--- NOTE | 2022-08-20 16:24 | NUR ---
Pt's partner, Germain, in twice this shift to visit patient. On first visit, shared a blended coffee with patient and on second visit, dropped off a bag of food from [employer] for patient. Allowed this because patient is on regular diet and did not eat much of lunch depsite ordering soft diet. Additionally, while previously talking to patient, she stated that her s/o Germain was clean of all drugs thanks to methadone clinic. After visiting with s/o for second time, patient's behavior had changed. She was unable to speak as coherently as before. Flight of ideas. Erratic behavior. Patient was also acting very suspicious with bag, continuously rummaging through it while this RN was not in room and then shoving it to the side and acting disinterested in the bag when this RN was in room. Discussed unusual behavior with charge nurse who recommended calling security. Call placed to security, who stated they could not search bag without patient's permission but could come down to unit. This RN went into patient's room and asked what is in the bag because she seems to be rummaging through it continuously. Patient was annoyed but emptied most all contents of bag: taco, hot sauce, napkins. Patient said "There. That's what is in the bag". This RN asked patient to hand her the bag. Patient stated "okay, fine. I'll be honest. I just found this in the bag. Germain must have dropped it in there, I don't know why". At bottom of bag is empty syringe. Not examined clearly enough to determine if there was drug residue present. Syringe is different that what the hospital stocks. Disposed into sharps bin and food brought in was discarded. Pt tearful and upset. Assisted back into bed and encouraged to rest. Patient frustrated and anticipated not being allowed visitors anymore due to "such a stupid mistake" and "something as silly as an empty syringe". Stated she had no clue that the syringe was in there until Germain had already left. Denies any drug use and states "I quit, we all quit". Addressed her change and behavior and she states "It's because I am depressed". Call placed to Dr Cotto to notify provider of concern that patient injested drugs. After discussion with patient about habits earlier today and on assessment of patient in altered state, supsicion that pt injested combination of methamphetmine and heroin. On assessment, pt is alert. Restless, jittery, mumbling, unable to stay still, but often speaking. Displays flight of ideas and rambles- which was not noted this morning (this RN spent approx one hour cumulative just talking to patient t/o shift). Often starts talking about one topic but monologue evolves to be about something entirely different. Plan to continue to monitor patient.
--- NOTE | 2022-08-20 17:39 | NUR ---
Pt. is awake in bed eating dinner and welcomes my visit. Pt. is pleasant, and displays evidence of being a woman of tiffany. Pt. also verbalizes the impact of poor life choices. Listen supportively with a calming presence. Seek to affirm and normalize the Pts. experience and pastorally recommend the support of tiffany based recovery programs in the community. Facilitate a life review and establish rapport. Prayed with Pt. Pt. verbalized gratitude for the spiritual care visit, and reqeusted access to a bible. A New Testmament was given to the Pt.
--- NOTE | 2022-08-20 18:48 | NUR ---
SUMMARY Patient continues at PCU status. At beginning of shift, pt is pleasant and cooperative with care. Talkative, holds a strong conversation. Details current and historical drug use. States her granddaughter is her motivation for quitting, stating "I don't want her to think grandma is a junkie". After her s/o visited for second time, noticed change in behavior. Initally, pt was hyperactive and now she is lethargic. O2 requirement increasing t/o day, even before suspected drug use incident. Started shift at 2 LPM and is currently 8 LPM with high flow nasal cannula. Pt awakens with gentle verbal stimulus, currently. Apnea alarm on bedside monitor. Will report to oncoming RN.
--- NOTE | 2022-08-20 19:18 | NUR ---
Bedside report given to Abigail BRYSON. Pt woken up to notify of shift change and beside report. Introduce Abigail to patient, reminding patient that nurse took care of her last night. Patient states "Thanks for taking care of me last night"
--- NOTE | 2022-08-20 21:37 | NUR ---
ASSUMED CARE AT 1900 PATIENT IS LETHARGIC BUT RESPONDS TO VERBAL STIMULI. SLOW TO RESPOND BUT ORIENTED X4. 02 SATS 94% ON 8L VIA NC. RR 15. HR ST 104, BP STABLE. DENIES CP/PRESSURE. CALL LIGHT IN REACH. SEE SHIFT ASSESSMENT FOR MORE INFORMATION.
[2022-08-21 03:29] LABS: Hematocrit 34.2 % (33.0-51.0); Hemoglobin 10.2 g/dL (11.5-16.0); Mean Corpuscular HGB 20.9 pg (26.0-34.0); Mean Corpuscular HGB Conc 29.8 g/dL (31.5-36.5); Mean Corpuscular Volume 70 fL (80-100); Mean Platelet Volume 9.5 fL (9.1-12.4); Platelet Count 496 K/mm3 (150-400); Red Blood Cell Count 4.89 M/mm3 (3.80-5.20); White Blood Cell Count 35.71 K/mm3 (4.00-11.30)
[2022-08-21 03:51] LABS: Bun/Creatinine Ratio 35.7 (12.0-20.0); Calcium, Blood 8.6 mg/dL (8.5-10.1); Creatinine, Blood 0.76 mg/dL (0.40-1.00); Potassium, Blood 4.4 mmol/L (3.5-5.5)
--- NOTE | 2022-08-21 05:07 | NUR ---
SHIFT SUMMARY PATIENT DROWSY BUT RESPONDS TO VERBAL STIMULI AND ORIENTED X4. 02 SATS 94% ON 8L VIA NC. HR SR 99, BP STABLE. MEDICATED FOR RIB PAIN ONCE THIS SHIFT. TWO PERSON ASSIST WITH BEDPAN. PATIENT REPOSITIONED THROUGH THE NIGHT. CALL LIGHT IN REACH.
--- NOTE | 2022-08-21 07:35 | NUR ---
Assumed care of pt at 0715. Pt appears to be sleeping soundly. SR, BP WNL, O2 at 8L via NC. O2 Sats now > 95%, will attempt to wean down O2 as able today. Tolerating PO, voids using the bedpan, is reportedly w/c bound at baseline. PIV x 1 SL. PCU status. WBC increased to 35.71 today. Is on IV ATB ATC. RN to continue to monitor.
[2022-08-21] MEDS ORDERED: IPRAT-ALBUT 0.5-3 ML INH (13:24)
[2022-08-21] MEDS ORDERED: Prednisone20 MG PO (13:26)
[2022-08-21] MEDS ORDERED: DOXY100 PO (13:39)
[2022-08-21] MEDS ORDERED: GUAI600T33 PO (13:41)
[2022-08-21] MEDS ORDERED: ACET500 PO (13:42)
[2022-08-21] MEDS ORDERED: ROXICODONE5 MG PO (13:44)
--- NOTE | 2022-08-21 14:47 | NUR ---
PT D/C AT 1440 PT ENCOURGED TO STAY IN THE HOSPITAL BY THIS RN AND DR. CAMPBELL. SHE STATES SHE REALLY NEEDS TO GET HOME TO HER ELDERLY MOTHER AND SHE WOULD LIKE TO BE D/C ON HOME O2. HOME O2 EVAL COMPLETED BY RT, PT IS IN NEED OF 7 LITERS OF OXYGEN AT ALL TIMES. ORDERED BY CM THROUGH DME PROVIDER. PORTABLE TANK DELIVERED TO PT ROOM AND CONCENTRATOR DELIVERED TO PT HOME. ALL DISCHARGE INSTRUCTIONS REVIEWED WITH PT INCLUDING THE NEED TO SEE HER PCP AT THE NEXT AVAILABLE OPEN APPONTMENT AND THE NEED FOR HOME HEALTH. PT IS AGREEABLE TO ALL. REFERRAL TO [facility] MADE BY DRIVE IN TELLER. IV D/C'D. PT PICKED UP BY FRIEND, TRANSPORTED VIA W/C TO PERSONAL VEHICLE. WRITTEN PRESCRIPTION FOR PAIN MED SENT WITH PT, ALL OTHER MEDS FAXED TO [facility] PER PT REQUEST. MANAGER ARMY NOTIFIED OF PT D/C.
== END 2022-08-21 14:40 | disposition home health service (06) | DRG 193 ==
LOC: ER 21:15 → ICUE 08-20 01:07 → ERHOLD 08-20 01:07 → ICUE 08-20 01:45
PROVIDERS: Emergency Medicine; Internal Medicine; ADMIT Internal Medicine
PROC: 5A09357 Assistance with Respiratory Ventilation, Less than 24 Consecutive Hours, Continuous Positive Airway Pressure (ICD-10-PCS; principal; 2022-08-20)
DX: J18.9 Pneumonia, unspecified organism (principal); J96.01 Acute respiratory failure with hypoxia; I69.354 Hemiplegia and hemiparesis following cerebral infarction affecting left non-dominant side; I48.91 Unspecified atrial fibrillation; F15.10 Other stimulant abuse, uncomplicated; J43.9 Emphysema, unspecified; B19.20 Unspecified viral hepatitis C without hepatic coma; F17.210 Nicotine dependence, cigarettes, uncomplicated; F10.10 Alcohol abuse, uncomplicated; F11.10 Opioid abuse, uncomplicated; J45.909 Unspecified asthma, uncomplicated; Z20.822 Contact with and (suspected) exposure to COVID-19; Z88.8 Allergy status to other drugs, medicaments and biological substances; Z79.899 Other long term (current) drug therapy; Z91.041 Radiographic dye allergy status; Z79.811 Long term (current) use of aromatase inhibitors; Z79.51 Long term (current) use of inhaled steroids; Z86.14 Personal history of Methicillin resistant Staphylococcus aureus infection; Z86.718 Personal history of other venous thrombosis and embolism; Z98.890 Other specified postprocedural states; Z87.81 Personal history of (healed) traumatic fracture
CPT/HCPCS: 0241U; 36415; 71045; 71250; 80048; 80053; 83880; 84145; 85025; 85027; 93005; 93010; 93306; 94640; 94644; 94660; 94664; 94761; 94762; 96365; 96375; 97110; 97116; 97162; 97166; 97530; 99285-25; A9270; J0456; J0696; J1650; J1940; J2405; J2930; J3010; J7050; J7512

== ENCOUNTER 2022-10-05 08:51 | Emergency (ER) | payer OTHER ==
[~2022-10-05] VITALS: Ht 157.5 cm; Wt 70.3 kg
[~2022-10-05 08:51] MED LIST changes: +ACET500 PO; +GUAI600T33 PO; +IPRAT-ALBUT 0.5-3 ML INH; +Prednisone20 MG PO; +ROXICODONE5 MG PO
== END 2022-10-05 12:51 | disposition home or self-care (01) ==
LOC: ER 08:51
DX: S39.012A Strain of muscle, fascia and tendon of lower back, initial encounter (principal); S30.0XXA Contusion of lower back and pelvis, initial encounter; S70.01XA Contusion of right hip, initial encounter; J44.9 Chronic obstructive pulmonary disease, unspecified; F17.210 Nicotine dependence, cigarettes, uncomplicated; W05.0XXA Fall from non-moving wheelchair, initial encounter; Z91.041 Radiographic dye allergy status; Z88.8 Allergy status to other drugs, medicaments and biological substances; Z86.73 Personal history of transient ischemic attack (TIA), and cerebral infarction without residual deficits
CPT/HCPCS: 72100; 73502

== ENCOUNTER → 2022-10-28 | Emergency (ER) | payer OTHER ==
[~2022-10-28] MED LIST changes: +NALOXONE HCL IM
== END ==
LOC: ER 04:00
DX: S40.011A Contusion of right shoulder, initial encounter (principal); J44.9 Chronic obstructive pulmonary disease, unspecified; F17.210 Nicotine dependence, cigarettes, uncomplicated; W06.XXXA Fall from bed, initial encounter; Z91.041 Radiographic dye allergy status; Z88.8 Allergy status to other drugs, medicaments and biological substances; Z86.73 Personal history of transient ischemic attack (TIA), and cerebral infarction without residual deficits
CPT/HCPCS: 73030

== ENCOUNTER 2022-11-03 15:35 | Inpatient (IN) | payer OTHER ==
[~2022-11-03] VITALS: Ht 157.5 cm; Wt 69.0 kg
[~2022-11-03 15:35] MED LIST changes: +BACTRIM DS TAB1 EAC6 PO; +BUPRENORPHIN-N1 EAC1 SL; +DOCU100 PO; +NALOXONE HCL4 MG; +SENNA LAXATIVE8.6 MG PO; +TIZA4 PO; +VISBIOME 112.51 EACH PO
[2022-11-03 16:03] LABS: BASOPHILS ABSOLUTE AUTO 0.13 K/mm3 (0.00-0.23); BASOPHILS PERCENT AUTO 1 % (0-2); EOSINOPHILS ABSOLUTE AUTO 0.59 K/mm3 (0.00-0.68); EOSINOPHILS PERCENT AUTO 4 % (0-6); Hematocrit 43.5 % (33.0-51.0); Hemoglobin 13.2 g/dL (11.5-16.0); IMMATURE GRAN ABSOLUTE AUTO 0.08 K/mm3 (0.00-0.10); IMMATURE GRAN PERCENT AUTO 1 % (0-1); LYMPHOCYTES ABSOLUTE AUTO 3.18 K/mm3 (0.84-5.20); LYMPHOCYTES PERCENT AUTO 22 % (21-46); MONOCYTES ABSOLUTE AUTO 0.78 K/mm3 (0.16-1.47); MONOCYTES PERCENT AUTO 5 % (4-13); Mean Corpuscular HGB 21.4 pg (26.0-34.0); Mean Corpuscular HGB Conc 30.3 g/dL (31.5-36.5); Mean Corpuscular Volume 71 fL (80-100); Mean Platelet Volume 9.6 fL (9.1-12.4); NEUTROPHILS ABSOLUTE AUTO 10.03 K/mm3 (1.96-9.15); NEUTROPHILS PERCENT AUTO 68 % (41-73); Platelet Count 488 K/mm3 (150-400); RDW Coefficient Variation 21.4 % (11.7-14.2); RDW Standard Deviation 51.8 fL (35.1-46.3); Red Blood Cell Count 6.17 M/mm3 (3.80-5.20); White Blood Cell Count 14.79 K/mm3 (4.00-11.30)
[2022-11-03 16:18] LABS: Magnesium, Blood 2.5 mg/dL (1.6-2.4)
[2022-11-03 16:22] LABS: Albumin, Blood 3.8 g/dL (3.4-5.0); Albumin/Globulin Ratio 0.7 (0.8-1.8); Bilirubin, Total 0.4 mg/dL (0.1-1.0); Bun/Creatinine Ratio 18.6 (12.0-20.0); Calcium, Blood 9.8 mg/dL (8.5-10.1); Creatinine, Blood 1.02 mg/dL (0.40-1.00); Globulin, Blood 5.4 g/dL (2.2-4.0); Thyroid Stimulating Hormone 7.54 uIU/mL (0.360-4.800); Total Protein, Blood 9.2 g/dL (6.4-8.2)
[2022-11-03 16:47] LABS: PO2 Arterial 79.6 mmHg (80-100); pH Blood Arterial 7.42 (7.35-7.45)
[2022-11-03 16:51] LABS: Source, Urine Straight Cath
[2022-11-03 16:55] LABS: Appearance, Urine Clear (Clear); Bilirubin, Urine Neg (Neg); Blood, Urine Neg (Neg); Color, Urine Yellow (P-Yellow); Glucose Qualitative, Urine Neg (Neg); Ketones, Urine Neg (Neg); Leukocyte Esterase, Urine Neg (Neg); Nitrite, Urine Neg (Neg); Protein, Urine Neg (Neg); Urobilinogen, Urine 1+ (Normal)
[2022-11-03 17:07] LABS: International Normalized Ratio 1.05
[2022-11-03 17:13] LABS: U Amphetamine Screen Not Detected
[2022-11-03 17:14] LABS: U Barbituate Screen Not Detected; U Benzodiazapine Screen DETECTED; U Buprenorphine Screen DETECTED; U Cannabinoids Screen Not Detected; U Cocaine Screen Not Detected; U Methadone Screen DETECTED; U Methamphetamine Screen DETECTED; U Opiates Screen DETECTED; U Oxycodone Screen Not Detected; U Phencyclidine Screen Not Detected; U Propoxyphene Screen Not Detected
[2022-11-04 03:06] LABS: PCO2 Arterial 35.3 mmHg (35-45); PO2 Arterial 59.2 mmHg (80-100); pH Blood Arterial 7.46 (7.35-7.45)
[2022-11-04 03:27] LABS: BASOPHILS ABSOLUTE AUTO 0.07 K/mm3 (0.00-0.23); BASOPHILS PERCENT AUTO 1 % (0-2); EOSINOPHILS ABSOLUTE AUTO 0.16 K/mm3 (0.00-0.68); EOSINOPHILS PERCENT AUTO 1 % (0-6); Hematocrit 33.9 % (33.0-51.0); Hemoglobin 10.5 g/dL (11.5-16.0); IMMATURE GRAN ABSOLUTE AUTO 0.04 K/mm3 (0.00-0.10); IMMATURE GRAN PERCENT AUTO 0 % (0-1); LYMPHOCYTES ABSOLUTE AUTO 2.66 K/mm3 (0.84-5.20); LYMPHOCYTES PERCENT AUTO 22 % (21-46); MONOCYTES ABSOLUTE AUTO 0.72 K/mm3 (0.16-1.47); MONOCYTES PERCENT AUTO 6 % (4-13); Mean Corpuscular HGB 21.6 pg (26.0-34.0); Mean Corpuscular Volume 70 fL (80-100); Mean Platelet Volume 9.4 fL (9.1-12.4); NEUTROPHILS ABSOLUTE AUTO 8.23 K/mm3 (1.96-9.15); NEUTROPHILS PERCENT AUTO 69 % (41-73); Platelet Count 439 K/mm3 (150-400); RDW Coefficient Variation 21.2 % (11.7-14.2); RDW Standard Deviation 52.2 fL (35.1-46.3); Red Blood Cell Count 4.85 M/mm3 (3.80-5.20); White Blood Cell Count 11.88 K/mm3 (4.00-11.30)
[2022-11-04 04:30] LABS: Albumin, Blood 2.8 g/dL (3.4-5.0); Albumin/Globulin Ratio 0.7 (0.8-1.8); Bilirubin, Total 0.4 mg/dL (0.1-1.0); Bun/Creatinine Ratio 24.3 (12.0-20.0); Calcium, Blood 8.8 mg/dL (8.5-10.1); Creatinine, Blood 0.66 mg/dL (0.40-1.00); Potassium, Blood 4.1 mmol/L (3.5-5.5)
[2022-11-04 04:31] LABS: Total Protein, Blood 6.8 g/dL (6.4-8.2)
--- NOTE | 2022-11-04 06:40 | NUR ---
SHIFT SUMMARY PT ADMITTED FROM ED. ADMITTED INTUBATED, LIGHTLY SEDATED ON PROPOFOL, LEVO RUNNING FOR SBP CONTROL. SIGNIFICANT OTHER IS POOR HISTORIAN AND NOT ABLE TO COMPLETE PT HISTORY. ADEQUTE U/O. TEMP SENSING TUCKER IN PLACE, CLEAN AND PATENT, OGT IN PLACE AND SET TO LIS. PT HAS SCATTERED SCARRING ALL OVER BODY. PT HAS WOUNDS, WHICH ARE DOCUMENTED WITH PICTURES IN THE CHART. PROPOFOL AND LEVO TITRATED FOR EFFECT OF BRINGING SEDATION AND SBP WITHIN PARAMETERS. NOT FOLLOWING COMMANDS, NOR RESPONDING TO STIMULATION. LEFT HAND NOT RESTRAINED D/T DEFICITS FROM PREVIOUS STROKE. PRIOR TO SEDATION INCREASE, PT CHEWING/GUMMING ETT, STRONG INDUCED COUGH, AND STRONG GAG REFLEXES WERE PRESENT.
--- NOTE | 2022-11-04 07:00 | NUR ---
ASSUME CARE: I have assumed care of this patient.
[2022-11-04] MEDS ORDERED: ACETAMINOPHEN500 M2 PO (07:13)
[2022-11-04] MEDS ORDERED: Ventolin/Proventil INH (07:14)
[2022-11-04] MEDS ORDERED: AMLO10 PO (07:15)
[2022-11-04] MEDS ORDERED: Iprat-Albut 0.5-3(2. INH (07:16)
[2022-11-04] MEDS ORDERED: ZESTRIL40 M1 PO (07:17)
[2022-11-04] MEDS ORDERED: NARCAN4 M1 (07:18)
--- NOTE | 2022-11-04 12:44 | NUR ---
SEDATION VACATION: Dr Encarnacion at bedside for neuro assessment. Pt able to nod "yes" or "no". She squeezes right hand to command.
--- NOTE | 2022-11-04 18:38 | NUR ---
SHIFT SUMMARY: NEURO: pt able to follow some commands during sedation vacation. She was given one dose of prn fentanyl for restlessness and head thrashing. Pt afebrile with temps 99-100.1 degrees fahrenheit. CARDIAC: sinus rhythm. levophed titrated off this morning, but had to be restarted this evening. RESPIRATORY: fio2 titrated down to 30% for much of the day until this evening. She is now back up to 40% fio2. GI/: nadine urine draining to temp prob mandel. no BM SKIN: no new skin breakdown noted. PSYCH/SOCIAL: family updated via telephone. Cousin at bedside for short time today.
[2022-11-05 03:34] LABS: BASOPHILS ABSOLUTE AUTO 0.08 K/mm3 (0.00-0.23); BASOPHILS PERCENT AUTO 1 % (0-2); EOSINOPHILS ABSOLUTE AUTO 0.38 K/mm3 (0.00-0.68); EOSINOPHILS PERCENT AUTO 4 % (0-6); Hematocrit 32.7 % (33.0-51.0); Hemoglobin 9.9 g/dL (11.5-16.0); IMMATURE GRAN ABSOLUTE AUTO 0.02 K/mm3 (0.00-0.10); IMMATURE GRAN PERCENT AUTO 0 % (0-1); LYMPHOCYTES ABSOLUTE AUTO 2.88 K/mm3 (0.84-5.20); LYMPHOCYTES PERCENT AUTO 29 % (21-46); MONOCYTES PERCENT AUTO 7 % (4-13); Mean Corpuscular HGB 21.5 pg (26.0-34.0); Mean Corpuscular HGB Conc 30.3 g/dL (31.5-36.5); Mean Corpuscular Volume 71 fL (80-100); Mean Platelet Volume 9.2 fL (9.1-12.4); NEUTROPHILS ABSOLUTE AUTO 5.88 K/mm3 (1.96-9.15); NEUTROPHILS PERCENT AUTO 59 % (41-73); Platelet Count 351 K/mm3 (150-400); RDW Coefficient Variation 21.1 % (11.7-14.2); White Blood Cell Count 9.94 K/mm3 (4.00-11.30)
[2022-11-05 03:55] LABS: Bun/Creatinine Ratio 20.3 (12.0-20.0); Calcium, Blood 8.9 mg/dL (8.5-10.1); Creatinine, Blood 0.59 mg/dL (0.40-1.00); Magnesium, Blood 2.3 mg/dL (1.6-2.4); Phosphorus, Blood 4.3 mg/dL (2.5-4.9); Potassium, Blood 3.9 mmol/L (3.5-5.5)
--- NOTE | 2022-11-05 06:09 | NUR ---
PT SEDATED ON PROPOFOL THROUGHOUT PROGRAM STRATEGIST. PT CONTINUES TO BE INTUBATED. LITTLE CHANGES IN PT STATUS AT THIS TIME.PT SEDATION PAUSED AROUND 0500 FOR SAT/SBT TRIAL. PT IS FOLLOWING COMMANDS AND TRACKING WITH EYES. ADEQUATE URINE OUT THROUGHOUT SHIFT. PS VSS. LEVOPHED GTT PAUSED AT TIME OF SEDATION. CONTINUEING TO MONITOR PT DURING SBT/SAT.
--- NOTE | 2022-11-05 07:15 | NUR ---
Assumed care of pt at 0700. Report received from Aldo BRYSON. Sedation off. Pt is restless, anxious. PS 8/5, 40%. Pending provider visit and potential extubation today. VSS.
[2022-11-05 17:52] LABS: Vancomycin, Trough 7.2 ug/mL (5.0-10.0)
--- NOTE | 2022-11-05 18:26 | NUR ---
ATTEMPTED TO MAKE A VISIT, PT ON BEDPAN AND UNAVAILABLE. CASE CONF WITH RN, REPORTS THERE IS SOME CONCERN ABOUT PT VISITORS AND SHE DOESNT HAVE A DECISION MAKER. PT IS ALSO EXPERIENCING MUSCLE SPASMS WHICH IS CAUSING HER DISCOMFORT. PALLIATIVE CARE WILL CONTINUE TO FOLLOW.
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
--- NOTE | 2022-11-05 20:00 | NUR ---
ASSUMED CARE OF PT AT 1900. REPORT RECEIVED AT BEDSIDE. PT PRESENTS IN BED. RESTING. 1 LITER PER MINUTE O2 FLOW PER NASAL CANNULA. PT MAINTAINS > 90 PERCENT SATURATION WITH THIS. WILL REVIEW CHART AND PLAN OF CARE FOR THIS PT.
[2022-11-06 03:46] LABS: Bun/Creatinine Ratio 20.4 (12.0-20.0); Creatinine, Blood 0.39 mg/dL (0.40-1.00); Magnesium, Blood 2.2 mg/dL (1.6-2.4); Phosphorus, Blood 4.1 mg/dL (2.5-4.9)
--- NOTE | 2022-11-06 04:13 | NUR ---
PT HAS BEEN ABLE TO MOVE ABOUT BED ON HER OWN. HAVE REQUIRED ASSISTANCE WITH MOVING UP IN BED. PT S.O. HAD CALLED EARLIER IN EVENING WANTING TO COME SEE PT, AND BRING HER CLOTHING AND HER DENTURES. INFORMED PT OF VISITATION DECISION, AND THAT HE COULD DROP THE ITEMS OFF AT THE ER DESK. HE NEVER DID BRING THESE ITEMS IN. PT PLACED TO ROOM AIR. NO S/S DYSPNEA. TUCKER CATHETER TO BEDSIDE DRAINAGE SYSTEM. Q.S. OUTPUT. WILL CONTINUE TO MONITOR PT.
--- NOTE | 2022-11-06 14:00 | NUR ---
DR SUNSHINE AND DISCHARGE PLANNING CAME TO SEE PT AND ASKED ABOUT DC PLAN TO SNF. PT DECLINED AND STATED SHE WANTED TO GO HOME. STATES HER BOYFRIEND TAKES CARE OF HER. RN ENTERED ROOM AND ASSISTED TO BEDPAN WITH 2 ASSIST AND ASKED PT AGAIN IF SHE WANTED TO GO HOME SINCE SHE IS UNABLE TO CARE FOR HERSELF. PT STATED AGAIN THAT BOYFRIEND TAKES CARE OF HER. COUSIN CAME TO SEE PT AND ASKED WHY PT WASN'T GOING TO REHAB AND DISCUSSED WITH HER THAT PT IS CHOOSING HOME VS SNF. PT MAKING PHONE CALLS TO GET RIDE.
--- NOTE | 2022-11-06 15:50 | NUR ---
PT WAS UNABLE TO GET A RIDE HOME. CALL TO [facility] WITH [facility] WHO STATES WHEEL CHAIR RIDE AVAILABLE AROUND 1600. PT AWARE AND STATES THAT THERE IS SOMEONE AT HOME TO HELP HER OUT OF WHEELCHAIR. IV'S DC'D WNL AND TUCKER OUT. DISCUSSED DC PAPER WORK AND ASSISTED WITH DRESSING. AWAITING TRANSPORT
--- NOTE | 2022-11-06 16:47 | NUR ---
LOC ARRIVED WITH WHEEL CHAIR FOR PT. LIFT REQUIRED TO GET PT UP INTO CHAIR. PILLOWS PROVIDED FOR SUPPORT. ASKED PT AGAIN HOW SHE DOES THIS AT HOME AND SHE STATED HER BOYFRIEND LIFTS HER AND MOVES HER AROUND. DENIED FURTHER QUESTIONS OR CONCERNS. ESCORTED OUT VIA WHEEL CHAIR BY STAFF.
== END 2022-11-06 17:02 | disposition home health service (06) | DRG 917 ==
LOC: ER 15:35 → ICUE 18:37 → ICUW 18:37 → ICUE 18:37
PROVIDERS: Internal Medicine Critical Care Medicine; Student in an Organized Health Care Education/Training Program; ADMIT Internal Medicine
PROC: 0BH18EZ Insertion of Endotracheal Airway into Trachea, Via Natural or Artificial Opening Endoscopic (ICD-10-PCS; principal; 2022-11-03)
PROC: 3E033XZ Introduction of Vasopressor into Peripheral Vein, Percutaneous Approach (ICD-10-PCS; 2022-11-03)
PROC: 4A133R1 Monitoring of Arterial Saturation, Peripheral, Percutaneous Approach (ICD-10-PCS; 2022-11-03)
PROC: 5A1945Z Respiratory Ventilation, 24-96 Consecutive Hours (ICD-10-PCS; 2022-11-03)
DX: T43.651A Poisoning by methamphetamines accidental (unintentional), initial encounter (principal); G92.8 Other toxic encephalopathy; J96.01 Acute respiratory failure with hypoxia; I69.354 Hemiplegia and hemiparesis following cerebral infarction affecting left non-dominant side; T40.3X1A Poisoning by methadone, accidental (unintentional), initial encounter; T40.601A Poisoning by unspecified narcotics, accidental (unintentional), initial encounter; I48.91 Unspecified atrial fibrillation; Z78.1 Physical restraint status; R56.9 Unspecified convulsions; D72.829 Elevated white blood cell count, unspecified; S81.802A Unspecified open wound, left lower leg, initial encounter; M62.830 Muscle spasm of back; M62.838 Other muscle spasm; F15.10 Other stimulant abuse, uncomplicated; M25.511 Pain in right shoulder; J44.9 Chronic obstructive pulmonary disease, unspecified; F17.210 Nicotine dependence, cigarettes, uncomplicated; F11.10 Opioid abuse, uncomplicated; Z86.718 Personal history of other venous thrombosis and embolism; Z99.3 Dependence on wheelchair; Z86.14 Personal history of Methicillin resistant Staphylococcus aureus infection; Z86.19 Personal history of other infectious and parasitic diseases; Z88.8 Allergy status to other drugs, medicaments and biological substances; Z91.041 Radiographic dye allergy status; Z79.899 Other long term (current) drug therapy; X58.XXXA Exposure to other specified factors, initial encounter
CPT/HCPCS: 31500; 36415; 36600; 51702; 70450; 71045; 80048; 80053; 80202; 81003; 82803; 82947; 83605; 83735; 83880; 84100; 84146; 84439; 84443; 85025; 85610; 87040; 93005; 93010; 94002; 94003; 96365-59; 96367-59; 96368; 96375-59; 97110; 97162; 97166; 97535; 99291-25; A9270; G0480; J0330; J0692; J1650; J1953; J2310; J2704; J3010; J3370; J7030; J7050; J7060; J7120

== ENCOUNTER 2023-01-12 14:17 | Emergency (ER) | payer OTHER ==
[~2023-01-12] VITALS: Ht 160 cm; Wt 68.0 kg
[~2023-01-12 14:17] MED LIST changes: +ACETAMINOPHEN500 M2 PO; +Iprat-Albut 0.5-3(2. INH; +NARCAN4 M1; +Ventolin/Proventil INH; +ZESTRIL40 M1 PO
[2023-01-12 14:59] LABS: BASOPHILS ABSOLUTE AUTO 0.09 K/mm3 (0.00-0.23); BASOPHILS PERCENT AUTO 1 % (0-2); EOSINOPHILS PERCENT AUTO 4 % (0-6); Hematocrit 44.1 % (33.0-51.0); IMMATURE GRAN ABSOLUTE AUTO 0.04 K/mm3 (0.00-0.10); IMMATURE GRAN PERCENT AUTO 0 % (0-1); LYMPHOCYTES ABSOLUTE AUTO 3.42 K/mm3 (0.84-5.20); LYMPHOCYTES PERCENT AUTO 27 % (21-46); MONOCYTES ABSOLUTE AUTO 0.82 K/mm3 (0.16-1.47); MONOCYTES PERCENT AUTO 6 % (4-13); Mean Corpuscular HGB 23.6 pg (26.0-34.0); Mean Corpuscular HGB Conc 31.7 g/dL (31.5-36.5); Mean Corpuscular Volume 75 fL (80-100); Mean Platelet Volume 9.3 fL (9.1-12.4); NEUTROPHILS ABSOLUTE AUTO 7.91 K/mm3 (1.96-9.15); NEUTROPHILS PERCENT AUTO 62 % (41-73); Platelet Count 410 K/mm3 (150-400); RDW Coefficient Variation 19.9 % (11.7-14.2); Red Blood Cell Count 5.92 M/mm3 (3.80-5.20); White Blood Cell Count 12.78 K/mm3 (4.00-11.30)
[2023-01-12 15:25] LABS: Albumin, Blood 3.4 g/dL (3.4-5.0); Albumin/Globulin Ratio 0.6 (0.8-1.8); Bilirubin, Total 0.6 mg/dL (0.1-1.0); Bun/Creatinine Ratio 23.8 (12.0-20.0); C-REACTIVE PROTEIN, EXT RANGE 1.11 mg/dL (0.000-0.300); Calcium, Blood 10.1 mg/dL (8.5-10.1); Creatinine, Blood 0.46 mg/dL (0.40-1.00); Globulin, Blood 5.4 g/dL (2.2-4.0); Potassium, Blood 3.9 mmol/L (3.5-5.5); Total Protein, Blood 8.8 g/dL (6.4-8.2)
[2023-01-12 15:54] VITALS: BP 107/71
[2023-01-12] MEDS ORDERED: CEPH500 PO (16:13)
== END 2023-01-12 17:00 | disposition home or self-care (01) ==
LOC: ER 14:17
PROVIDERS: Physician Assistant
DX: L89.302 Pressure ulcer of unspecified buttock, stage 2 (principal); L89.301 Pressure ulcer of unspecified buttock, stage 1; Z91.041 Radiographic dye allergy status; Z88.8 Allergy status to other drugs, medicaments and biological substances; Z79.899 Other long term (current) drug therapy; I48.91 Unspecified atrial fibrillation; J44.9 Chronic obstructive pulmonary disease, unspecified; F17.210 Nicotine dependence, cigarettes, uncomplicated
CPT/HCPCS: 80053; 85025; 86140; A9270

== ENCOUNTER 2023-01-14 21:47 | Inpatient (IN) | payer OTHER ==
[~2023-01-14] VITALS: Ht 160 cm; Wt 68.0 kg
[2023-01-14 23:47] LABS: BASOPHILS ABSOLUTE AUTO 0.07 K/mm3 (0.00-0.23); BASOPHILS PERCENT AUTO 1 % (0-2); EOSINOPHILS ABSOLUTE AUTO 0.11 K/mm3 (0.00-0.68); EOSINOPHILS PERCENT AUTO 1 % (0-6); Hematocrit 46.9 % (33.0-51.0); Hemoglobin 14.4 g/dL (11.5-16.0); IMMATURE GRAN ABSOLUTE AUTO 0.03 K/mm3 (0.00-0.10); IMMATURE GRAN PERCENT AUTO 0 % (0-1); LYMPHOCYTES ABSOLUTE AUTO 2.53 K/mm3 (0.84-5.20); LYMPHOCYTES PERCENT AUTO 24 % (21-46); MONOCYTES ABSOLUTE AUTO 0.51 K/mm3 (0.16-1.47); MONOCYTES PERCENT AUTO 5 % (4-13); Mean Corpuscular HGB 22.9 pg (26.0-34.0); Mean Corpuscular HGB Conc 30.7 g/dL (31.5-36.5); Mean Corpuscular Volume 75 fL (80-100); Mean Platelet Volume 9.6 fL (9.1-12.4); NEUTROPHILS PERCENT AUTO 69 % (41-73); Platelet Count 433 K/mm3 (150-400); RDW Coefficient Variation 19.4 % (11.7-14.2); RDW Standard Deviation 50.9 fL (35.1-46.3); Red Blood Cell Count 6.28 M/mm3 (3.80-5.20); White Blood Cell Count 10.35 K/mm3 (4.00-11.30)
[2023-01-15 00:04] LABS: Albumin, Blood 3.7 g/dL (3.4-5.0); Albumin/Globulin Ratio 0.6 (0.8-1.8); Bilirubin, Total 0.5 mg/dL (0.1-1.0); Calcium, Blood 9.7 mg/dL (8.5-10.1); Creatinine, Blood 0.56 mg/dL (0.40-1.00); Globulin, Blood 5.7 g/dL (2.2-4.0); Potassium, Blood 3.6 mmol/L (3.5-5.5); Total Protein, Blood 9.4 g/dL (6.4-8.2)
[2023-01-15 04:14] VITALS: BP 139/84
--- NOTE | 2023-01-15 05:00 | NUR ---
PATIENT IS A NEW ADMIT FROM THE ED. AXOX 4 AND FOUR PERSON TRANSFER FROM [facility] TO BED. BEDREST. PLACED ON TELEMETRY NSR 93 PER ASSISTANT GROCERY STORE MANAGER. DENIES CHEST PAIN, SOB, AND N/V. RIGHT SHOULDER PAIN WITH MOVEMENT. REPORTED USED METH/HEROIN 01/14/2023. PRESSURE SORES TO LEFT BUTTOCK AND GLUTEAL CLEFT. CONSENT TO PHOTOGRAPH SIGNED AND PHOTO'S TAKEN BY CHARGE SHANELLE BRYSON. LEFT SIDE WEAKNESS WITH HX OF CVA. REPORTS LIVES AT HOME WITH AND MOTHER WITH DEMENTIA. PATIENT VERABLIZED HOME HEALTH NO LONGER VISITS. ORIENTED TO ROOM AND CALL LIGHT SYSTEM. WANTED TO STAY UP AND WATCH TV AFTER ASSESSMENT. WCTM.
[2023-01-15 07:04] VITALS: BP 112/78
--- NOTE | 2023-01-15 10:35 | NUR ---
MAKES NEEDS KNOWN, WAKES EASILY, ATTENDS CHANGED CDI, NO DISTRESS, CALL LIGHT WITH IN REACH
[2023-01-15 15:05] VITALS: BP 119/81
--- NOTE | 2023-01-15 18:17 | NUR ---
MAKES NEEDS KNOWN, REGULARLY REPOSITIONED AT PATIENTS REQUEST, DIRECTOR DATABASE CAME AND ORDERED A SURGICAL CONSULT FOR POSSIBLE I&D. LEGS VERY CONTRACTED, ARMS MINIMAL CONTRACTED, UNABLE TO FEED SELF, USES CALL LIGHT. NO ACUTE CHANGES
[2023-01-15 19:13] VITALS: BP 99/60
--- NOTE | 2023-01-16 04:11 | NUR ---
SHIFT SUMMERY, PT RESTING IN BED PT GIVEN TYLENOL FOR SHOULDER PAIN AND PILLOWS PLACED FOR PREVENTION OF SKIN BREAKDOWN AND PT COMFORT. PT HAD 2 INCON LIQ STOOLS WAS CHANGED AND OINTMENT APPLYED TO RECTAL AREA. PT NPO FOR I& D TODAY. CALL LIGHT IN REACH.
[2023-01-16 05:30] VITALS: BP 93/63
[2023-01-16 07:09] VITALS: BP 113/78
--- NOTE | 2023-01-16 13:02 | NUR ---
FRIENDS IN VISITING
[2023-01-16 16:18] VITALS: BP 112/80
--- NOTE | 2023-01-16 16:50 | NUR ---
NO ACUTE CHANGES, ALERT AND ORIENTED X4, LEGS AND ARM CONTRACTED, ARMS HAVE MINIMAL MOVEMENT, DR COTTON DEBRIDED UPPER SACRAL WOUND AT BEDSIDE, PATIENT DID NOT FEEL ANYTHING, WET TO DRY DRESSINGS BID STARTED. PATIENT MAKES NEEDS KNOWN, USES CALL LIGHT, CALL LIGHT WITH IN REACH, WILL RELAY TO PM RN
[2023-01-16 19:20] VITALS: BP 103/70
[2023-01-17 03:39] VITALS: BP 96/75
--- NOTE | 2023-01-17 05:32 | NUR ---
SHIFT SUMMARY NOC PT A/O X 4. PERLA AND DAWIT WITH CARE. DURING ROUNDING RT FOUND THAT PT SPO2 HAD DECREASED TO 88% ON RA SO PRN O2 2L/NC TO MAINTAIN SPO2 >90%. PT HAS WET TO DRY DRESSING OVER LEFT BUTTOCK FOR UNSTAGEABLE PRESSURE ULCER THAT WAS DEBRIDED YESTERDAY BY DR COTTON, IT IS C/D/I. MEPILEX IS OVER STAGE 2 PRESSURE ULCER ON L GLUTIAL FOLD AND C/D/I. PT HAS PUREWICK IN PLACE CONNECTED TO SUCTION TO AVOID THE PAIN OF MOVING TO USE URINAL/BEDPAN. PT STILL HAS UNCOLLECTED UA FOR TOXICOLOGY SCREENING. PT IS CURRENTLY RESTING WITH BED IN LOWEST POSITION, AND CALL LIGHT WITHIN REACH.
[2023-01-17 07:47] VITALS: BP 104/83
[2023-01-17] MEDS ORDERED: METO50ER PO (11:56)
[2023-01-17] MEDS ORDERED: ELIQUIS5 M2 PO (11:56)
--- NOTE | 2023-01-17 13:12 | NUR ---
DC- RN WENT OVER STEP BY STEP INSTRUCTIONS ON WET TO DRY DRESSING CHANGES PER DR. COTTON'S ORDERS FOR DRESSING CHANGES BID. RN GAVE PT WOUND CARE SUPPLIES FOR 2 DAYS PER PT'S REQUEST. PT IS TO GO TO THE WOUND CARE CLINIC AFTER DC. PT'S FRIEND AND WERE TAUGHT HOW TO CHANGE HER DRESSING APPROPRIATELY. PT HAS AN APPOINTMENT SCHEDULED FOR THIS WEDNESDAY WITH HER PCP. PT LEFT IN WC WITH AND FRIEND IN STABLE CONDITION. PT LEFT WITH ALL HER BELONGINGS.
== END 2023-01-17 12:45 | disposition home health service (06) | DRG 853 ==
LOC: ER 21:47 → MEDS 01-15 03:13 → ENPENDDIS 01-17 10:16 → MEDS 01-17 12:45
PROVIDERS: Student in an Organized Health Care Education/Training Program; ADMIT Internal Medicine
PROC: 3E03329 Introduction of Other Anti-infective into Peripheral Vein, Percutaneous Approach (ICD-10-PCS; 2023-01-15)
PROC: 0JB90ZZ Excision of Buttock Subcutaneous Tissue and Fascia, Open Approach (ICD-10-PCS; principal; 2023-01-16)
DX: A41.9 Sepsis, unspecified organism (principal); L89.323 Pressure ulcer of left buttock, stage 3; E87.20 Acidosis, unspecified; I48.91 Unspecified atrial fibrillation; B18.2 Chronic viral hepatitis C; J44.9 Chronic obstructive pulmonary disease, unspecified; F17.210 Nicotine dependence, cigarettes, uncomplicated; F11.10 Opioid abuse, uncomplicated; F15.10 Other stimulant abuse, uncomplicated; F10.10 Alcohol abuse, uncomplicated; R62.7 Adult failure to thrive; Z86.73 Personal history of transient ischemic attack (TIA), and cerebral infarction without residual deficits; Z86.14 Personal history of Methicillin resistant Staphylococcus aureus infection; Z88.8 Allergy status to other drugs, medicaments and biological substances; Z91.041 Radiographic dye allergy status; Z79.899 Other long term (current) drug therapy; Z79.811 Long term (current) use of aromatase inhibitors; Z79.51 Long term (current) use of inhaled steroids; Z79.2 Long term (current) use of antibiotics; Z86.718 Personal history of other venous thrombosis and embolism; Z98.890 Other specified postprocedural states; Z99.3 Dependence on wheelchair; Z68.26 Body mass index [BMI] 26.0-26.9, adult
CPT/HCPCS: 36415; 80053; 83605; 84145; 85025; 94760; 96365; 96366; 99284-25; A9270; J3370; J7030

== ENCOUNTER 2023-01-27 00:33 | Day surgery (SDC) | payer OTHER ==
[~2023-01-27 00:33] MED LIST changes: +ELIQUIS5 M2 PO; +METO50ER PO
== END 2023-01-27 23:09 | disposition home or self-care (01) ==
LOC: WOUND 00:33
DX: L89.159 Pressure ulcer of sacral region, unspecified stage (principal); F15.10 Other stimulant abuse, uncomplicated; Z72.0 Tobacco use
CPT/HCPCS: 99406; A9270

== ENCOUNTER 2023-02-03 00:46 | Day surgery (SDC) | payer OTHER | END 2023-02-03 22:53 | disposition home or self-care (01) | LOC: WOUND 00:46 | DX: L89.153 Pressure ulcer of sacral region, stage 3 (principal); F15.10 Other stimulant abuse, uncomplicated; Z72.0 Tobacco use; I69.362 Other paralytic syndrome following cerebral infarction affecting left dominant side | CPT/HCPCS: A9270 ==

== ENCOUNTER 2023-02-10 03:43 | Day surgery (SDC) | payer OTHER | END 2023-02-10 22:58 | disposition home or self-care (01) | LOC: WOUND 03:43 | DX: L89.153 Pressure ulcer of sacral region, stage 3 (principal); F15.10 Other stimulant abuse, uncomplicated; Z72.0 Tobacco use | CPT/HCPCS: 99406 ==

== ENCOUNTER 2023-02-17 03:17 | Day surgery (SDC) | payer OTHER | END 2023-02-17 22:46 | disposition home or self-care (01) | LOC: WOUND 03:17 | DX: L89.154 Pressure ulcer of sacral region, stage 4 (principal); F15.10 Other stimulant abuse, uncomplicated; Z72.0 Tobacco use ==

== ENCOUNTER → 2023-02-24 | Day surgery (SDC) | payer OTHER | LOC: WOUND 03:12 | DX: L89.154 Pressure ulcer of sacral region, stage 4 (principal); F15.10 Other stimulant abuse, uncomplicated; Z72.0 Tobacco use | CPT/HCPCS: G0463 ==

== ENCOUNTER 2023-03-17 04:36 | Day surgery (SDC) | payer OTHER | END 2023-03-17 22:45 | disposition home or self-care (01) | LOC: WOUND 04:36 | DX: L89.154 Pressure ulcer of sacral region, stage 4 (principal); L89.102 Pressure ulcer of unspecified part of back, stage 2; F15.10 Other stimulant abuse, uncomplicated; Z72.0 Tobacco use; Z98.1 Arthrodesis status | CPT/HCPCS: 72100; G0463 ==

== ENCOUNTER 2023-03-24 02:00 | Day surgery (SDC) | payer OTHER | END 2023-03-24 22:49 | disposition home or self-care (01) | LOC: WOUND 02:00 | DX: L89.154 Pressure ulcer of sacral region, stage 4 (principal); L89.102 Pressure ulcer of unspecified part of back, stage 2; F15.10 Other stimulant abuse, uncomplicated; Z72.0 Tobacco use | CPT/HCPCS: G0463 ==

== ENCOUNTER 2023-04-07 01:24 | Day surgery (SDC) | payer OTHER | END 2023-04-07 23:16 | disposition home or self-care (01) | LOC: WOUND 01:24 | DX: L89.154 Pressure ulcer of sacral region, stage 4 (principal); L89.102 Pressure ulcer of unspecified part of back, stage 2; F15.10 Other stimulant abuse, uncomplicated; Z72.0 Tobacco use | CPT/HCPCS: A9270 ==

== ENCOUNTER 2023-04-14 02:53 | Day surgery (SDC) | payer OTHER | END 2023-04-14 22:52 | disposition home or self-care (01) | LOC: WOUND 02:53 | DX: L89.154 Pressure ulcer of sacral region, stage 4 (principal); L89.102 Pressure ulcer of unspecified part of back, stage 2; L89.322 Pressure ulcer of left buttock, stage 2; F15.10 Other stimulant abuse, uncomplicated; Z72.0 Tobacco use; T14.8XXA Other injury of unspecified body region, initial encounter; L89.159 Pressure ulcer of sacral region, unspecified stage; B82.9 Intestinal parasitism, unspecified; L89.109 Pressure ulcer of unspecified part of back, unspecified stage; I48.91 Unspecified atrial fibrillation; J44.9 Chronic obstructive pulmonary disease, unspecified; B19.20 Unspecified viral hepatitis C without hepatic coma; Z86.73 Personal history of transient ischemic attack (TIA), and cerebral infarction without residual deficits; Z86.718 Personal history of other venous thrombosis and embolism; Z91.041 Radiographic dye allergy status; Z88.8 Allergy status to other drugs, medicaments and biological substances; Z79.01 Long term (current) use of anticoagulants; Z79.899 Other long term (current) drug therapy | CPT/HCPCS: 36415; 72128; 72131; 80053; 83605; 85025; 99283-25; G0463 ==

== ENCOUNTER 2023-04-14 11:56 | Emergency (ER) | payer OTHER ==
[~2023-04-14] VITALS: Ht 160 cm; Wt 70.3 kg
[2023-04-14 12:06] VITALS: BP 114/86
[2023-04-14 13:25] LABS: BASOPHILS ABSOLUTE AUTO 0.07 K/mm3 (0.00-0.23); BASOPHILS PERCENT AUTO 1 % (0-2); EOSINOPHILS ABSOLUTE AUTO 0.38 K/mm3 (0.00-0.68); EOSINOPHILS PERCENT AUTO 3 % (0-6); Hematocrit 43.4 % (33.0-51.0); Hemoglobin 13.6 g/dL (11.5-16.0); IMMATURE GRAN ABSOLUTE AUTO 0.04 K/mm3 (0.00-0.10); IMMATURE GRAN PERCENT AUTO 0 % (0-1); LYMPHOCYTES ABSOLUTE AUTO 3.86 K/mm3 (0.84-5.20); LYMPHOCYTES PERCENT AUTO 35 % (21-46); MONOCYTES PERCENT AUTO 6 % (4-13); Mean Corpuscular HGB Conc 31.3 g/dL (31.5-36.5); Mean Corpuscular Volume 77 fL (80-100); Mean Platelet Volume 9.5 fL (9.1-12.4); NEUTROPHILS ABSOLUTE AUTO 6.13 K/mm3 (1.96-9.15); NEUTROPHILS PERCENT AUTO 55 % (41-73); Platelet Count 490 K/mm3 (150-400); RDW Coefficient Variation 18.6 % (11.7-14.2); RDW Standard Deviation 48.7 fL (35.1-46.3); Red Blood Cell Count 5.67 M/mm3 (3.80-5.20); White Blood Cell Count 11.18 K/mm3 (4.00-11.30)
[2023-04-14 13:43] LABS: Albumin/Globulin Ratio 0.5 (0.8-1.8); Bilirubin, Total 1.5 mg/dL (0.1-1.0); Bun/Creatinine Ratio 19.5 (12.0-20.0); Calcium, Blood 9.3 mg/dL (8.5-10.1); Creatinine, Blood 0.41 mg/dL (0.40-1.00); Potassium, Blood 3.3 mmol/L (3.5-5.5)
== END 2023-04-14 16:41 | disposition home or self-care (01) ==
LOC: ER 11:56
PROVIDERS: Emergency Medicine
DX: L89.159 Pressure ulcer of sacral region, unspecified stage (principal); B82.9 Intestinal parasitism, unspecified; L89.109 Pressure ulcer of unspecified part of back, unspecified stage; I48.91 Unspecified atrial fibrillation; J44.9 Chronic obstructive pulmonary disease, unspecified; B19.20 Unspecified viral hepatitis C without hepatic coma; F17.210 Nicotine dependence, cigarettes, uncomplicated; Z86.73 Personal history of transient ischemic attack (TIA), and cerebral infarction without residual deficits; Z86.718 Personal history of other venous thrombosis and embolism; Z91.041 Radiographic dye allergy status; Z88.8 Allergy status to other drugs, medicaments and biological substances; Z79.01 Long term (current) use of anticoagulants; Z79.899 Other long term (current) drug therapy
CPT/HCPCS: 36415; 72128; 72131; 80053; 83605; 85025; 87040; 99283-25

== ENCOUNTER 2023-05-08 23:34 | Inpatient (IN) | payer OTHER ==
[~2023-05-08] VITALS: Ht 165.1 cm; Wt 62.2 kg
[2023-05-09] VITALS (41 sets, daily range): BP systolic 85–115; BP diastolic 54–70
[2023-05-09 01:35] LABS: Alanine Aminotransfer (ALT/SGP 19 U/L (12-78); Albumin, Blood 2.8 g/dL (3.4-5.0); Albumin/Globulin Ratio 0.5 (0.8-1.8); Alk Phos 114 U/L (50-136); Anion Gap 10 mmol/L (6-16); Aspartate Aminotrans (AST/SGOT 35 U/L (12-37); Blood Urea Nitrogen 24 mg/dL (8-24); Bun/Creatinine Ratio 13.7 (12.0-20.0); CO2, Blood 19 mmol/L (21-32); Calcium, Blood 9.1 mg/dL (8.5-10.1); Chloride, Blood 101 mmol/L (98-108); Creatinine, Blood 1.75 mg/dL (0.40-1.00); Globulin, Blood 5.7 g/dL (2.2-4.0); Glomerular Filtration Rate 33 (60-); Glucose, Blood 128 mg/dL (70-99); Potassium, Blood 4.9 mmol/L (3.5-5.5); Sodium, Blood 130 mmol/L (136-145); Total Protein, Blood 8.5 g/dL (6.4-8.2)
[2023-05-09 01:42] LABS: Hematocrit 47.6 % (33.0-51.0); Hemoglobin 15.1 g/dL (11.5-16.0); Mean Corpuscular HGB 24.8 pg (26.0-34.0); Mean Corpuscular HGB Conc 31.7 g/dL (31.5-36.5); Mean Corpuscular Volume 78 fL (80-100); Platelet Count 623 K/mm3 (150-400); RDW Coefficient Variation 18.6 % (11.7-14.2); RDW Standard Deviation 49.8 fL (35.1-46.3); White Blood Cell Count 34.99 K/mm3 (4.00-11.30)
[2023-05-09 02:04] LABS: BAND PERCENT MAN 17 % (0-8); BASOPHILS PERCENT MAN 0 % (0-2); EOSINOPHILS PERCENT MAN 0 % (0-6); LYMPHOCYTES ABSOLUTE MAN 2.09 K/mm3 (0.84-5.20); LYMPHOCYTES PERCENT MAN 6 % (21-46); MONOCYTES ABSOLUTE MAN 1.74 K/mm3 (0.16-1.47); MONOCYTES PERCENT MAN 5 % (4-13); NEUTROPHILS ABSOLUTE MAN 31.14 K/mm3 (1.96-9.15); SEG NEUTROPHILS PERCENT MAN 72 % (41-73); TOTAL CELLS COUNTED 100
[2023-05-09 02:43] LABS: Source, Urine Straight Cath
[2023-05-09 02:47] LABS: Blood, Urine 3+ (Neg); Glucose Qualitative, Urine Neg (Neg); Ketones, Urine 1+ (Neg); Leukocyte Esterase, Urine 1+ (Neg); Nitrite, Urine Pos (Neg); Protein, Urine 3+ (Neg); Urobilinogen, Urine 3+ (Normal)
[2023-05-09 02:51] LABS: Appearance, Urine Hazy (Clear); Bilirubin, Urine 2+ (Neg); Color, Urine Amber (P-Yellow)
[2023-05-09 02:55] LABS: Amorphous Mod (0-Heavy); Bacteria Mod /hpf; Red Blood Cells, Urine 0-2 /hpf (0-2); Squamous Epithelial Cells Rare /hpf (Few); White Blood Cells, Urine 0-2 /hpf (0-5)
[2023-05-09 03:55] LABS: Magnesium, Blood 2.4 mg/dL (1.6-2.4)
[2023-05-09 04:16] LABS: C-Reactive Protein, High Sens. >190.000 mg/L (0.000-3.000)
[2023-05-09] MEDS ORDERED: Prinivil10 MG PO (05:21)
[2023-05-09] MEDS ORDERED: AMLO10 PO (05:22)
--- NOTE | 2023-05-09 07:02 | NUR ---
ER ADMIT TO ICU 8: PT ARRIVED TO THE UNIT AT 0440; PT ADMITTED TO THE UNIT FOR SEPSIS SECONDARY TO INFECTED WOUNDS. PT ARRIVED A&O X 4, PLEASANT AND FOLLOWING COMMANDS. PT HAS A HX OF A CVA WITH LEFT SIDED DEFICITS; PT UNABLE TO MOVE LEFT SIDE COMPLETELY. PT ALSO STATES THAT SHE HAS BEEN HAVING R. SIDED WEAKNESS RECENTLY AND HAS MINIMAL STRENGHT/MOVEMENT IN HER RIGHT EXTREMITIES. PT ALSO HAS PRIOR R. SHOULDER INJURY AND IS PAINFUL TO MOVEMENT. PT ON RA WITH CLEAR LUNG SOUNDS THROUGHOUT; SPO2 98< AND PT DENIES SOB. PT SR-ST ON MONITOR WITH HR 90-100 AND SBP 90-100. PT DENIES CHEST PAIN/PRESSURE AT THIS TIME. PT HAS HYPOACTIVE BOWEL SOUNDS IN ALL QUADRANTS WITH ABD PAIN IN RIGHT UPPER/LOWER QUADRANTS; ABD SOFT UPON PALPATION. PT HAS DEPENDS IN PLACE AND USING BEDPAN FOR OTHER ELIMINATION NEEDS. PT HAS WOUNDS TO LUMBAR REGION OF BACK THAT HAVE MEPILEX IN PLACE; ONE WOUND HAS METAL HARDWARE EXPOSED THAT WAS IN PLACE FROM A PREVIOUS BACK SURGERY, MD AWARE. PT HAS SCATTERED SCRABS/SCRATCHES OVER BODY. PPPX 4, LIMBS ARE VERY TIGHT, PASSIVE ROM COMPLETED AND EXTREMITIES ELEVATED. HANDS ARE VERY TIGHT AND BORDERLINE CONTRACTED; ROLLED UP HAND TOWELS IN PLACE AND PASSIVE ROM COMPLETED. PT HAS DELIA PIV IN PLACE THAT IS INFUSING NS @ 200 MLS/HR. BED LOWERED, CALL LIGHT IN REACH, REPORT GIVEN TO TRACY BRYSON TO ASSUME CARE.
[2023-05-09 08:59] LABS: BASOPHILS ABSOLUTE AUTO 0.07 K/mm3 (0.00-0.23); BASOPHILS PERCENT AUTO 0 % (0-2); EOSINOPHILS ABSOLUTE AUTO 0.03 K/mm3 (0.00-0.68); EOSINOPHILS PERCENT AUTO 0 % (0-6); Hematocrit 36.6 % (33.0-51.0); Hemoglobin 11.6 g/dL (11.5-16.0); IMMATURE GRAN ABSOLUTE AUTO 0.15 K/mm3 (0.00-0.10); IMMATURE GRAN PERCENT AUTO 1 % (0-1); LYMPHOCYTES PERCENT AUTO 10 % (21-46); MONOCYTES ABSOLUTE AUTO 1.03 K/mm3 (0.16-1.47); MONOCYTES PERCENT AUTO 4 % (4-13); Mean Corpuscular HGB 24.5 pg (26.0-34.0); Mean Corpuscular HGB Conc 31.7 g/dL (31.5-36.5); Mean Corpuscular Volume 77 fL (80-100); NEUTROPHILS ABSOLUTE AUTO 20.26 K/mm3 (1.96-9.15); NEUTROPHILS PERCENT AUTO 85 % (41-73); Platelet Count 455 K/mm3 (150-400); RDW Coefficient Variation 17.6 % (11.7-14.2); RDW Standard Deviation 49.1 fL (35.1-46.3); Red Blood Cell Count 4.74 M/mm3 (3.80-5.20); White Blood Cell Count 23.84 K/mm3 (4.00-11.30)
[2023-05-09 09:18] LABS: Albumin, Blood 2.2 g/dL (3.4-5.0); Albumin/Globulin Ratio 0.5 (0.8-1.8); Bilirubin, Total 0.5 mg/dL (0.1-1.0); Bun/Creatinine Ratio 18.2 (12.0-20.0); Calcium, Blood 8.1 mg/dL (8.5-10.1); Creatinine, Blood 1.1 mg/dL (0.40-1.00); Globulin, Blood 4.4 g/dL (2.2-4.0); Potassium, Blood 3.4 mmol/L (3.5-5.5); Total Protein, Blood 6.6 g/dL (6.4-8.2)
--- NOTE | 2023-05-09 17:13 | NUR ---
SHIFT SUMMARY NO ACUTE CHANGES THIS SHIFT. PT HAS REMAINED ALERT AND ORIENTED WHEN AWAKE. PT SLEEPING OFF AND ON THROUGHOUT THE SHIFT. PT ANSWERS QUESTIONS APPROPRIATELY. PT MED PER EMAR FOR BACK PAIN THROUGHOUT THE SHIFT. VITAL SIGNS HAVE REMAINED STABLE. PT ON ROOM AIR. PICC PLACED TO PABLITO THIS AM. SALINE LOCKED AT THIS TIME. PT WITH ATTENDS IN PLACE. PT ABLE TO TAKE SIPS OF WATER WITH MEDS, BUT HAS POOR APPETITE. WOUNDS REMAIN UNCHANGED. DR LUNDBERG CONTACTING [facility] FOR POTENTIAL TRANSFER RELATED TO SPINAL HARDWARE AND WOUNDS ON BACK. PT CAREGIVER AND SIGNIFICANT OTHER AT BEDSIDE FOR SHORT PERIOD THIS AM. WILL CONTINUE TO MONITOR AND REPORT OFF TO ONCOMING RN.
--- NOTE | 2023-05-09 19:15 | NUR ---
ASSUMPTION OF CARE: RECEIVED REPORT FROM TRACY BRYSON. PT ALERT AND ORIENTED TO PERSON, PLACE AND SITUATION. CONTINUOUS CARDIAC MONITORING IN PLACE, SINUS RHYTHM WITH EPISODES OF AFIB/AFLUTTER. HR 90'S-130'S. INSTRUCTED TO BEAR DOWN DURING THE EPISODE OF AFIB AND WAS ABLE TO CONVERT BACK TO SR. NO C/O CHEST PAIN, PRESSURE OR SOB. SBP IN THE 90'S-100'S WITH MAP MAINTAINING >65. LUNG SOUNDS CLEAR IN THE UPPER LOBES WITH DIMINISHED SOUNDS IN THE BASES, ON RA >95% SPO2. WOUND ON COCCYX WITH MEPILEX IN PLACE THAT IS CLEAN AND DRY. PICTURES IN CHART. MINIMAL MOVEMENT IN THE LOWER EXTREMETIES, MODERATE MOVEMENT IN THE UPPER EXTREMETIES. STRONG RADIAL PULSES WITH FAINT/THREADY TIBIAL PULSES. C/O PAIN IN BACK WHICH PT STATES IS CHRONIC, MEDICATED PER MAR WITH MODERATE RELIEF. PICC LINE IN PLACE IN RIGHT UPPER ARM, INFUSING TKO AT 10 ML/HR. DRESSING CLEAN, DRY AND INTACT. 20G PERIPHERAL IN LEFT AC, SALINE LOCKED. SEE SHIFT ASSESSMENT FOR FULL ASSESSMENT.
[2023-05-09 20:37] LABS: SARS-Cov-2 (COVID-19) PCR, MMC NEGATIVE (NEGATIVE)
--- NOTE | 2023-05-09 21:05 | NUR ---
PATIENT ARRIVED TO PCU 11. PATIENT TRANSFER TO PCU BED WITH SLIDER SHEET. AND PLACED ON PCU MONITORS. PATIENT A&O X3, VERBALIZED INCREASE IN PAIN WITH TRANSFER TO BED, APPEARS MORE RELAXED ONCE POSITIONED IN BED. MIN MOVEMENT TO LEGS, AND RIGHT HAND. DRESSINGS TO BACK CD&I. ATTENDS IN PLACE.
--- NOTE | 2023-05-09 21:05 | NUR ---
TRANSFER: PT TRANSFERRED TO U 11, REPORT GIVEN TO DEBBIE KUMAR RN. TRANSFERRED VIA BED WITH TWO RN'S. ALL BELONGINGS SENT WITH THE PT.
[2023-05-10 00:53] VITALS: BP 113/79
--- NOTE | 2023-05-10 03:27 | NUR ---
SPOKE TO SALVADOR AT [facility] MICA BUILDER. GIVEN UP DATE ON PATIENT, THEY ARE CONTINUING TO LOOK FOR A ROOM.
[2023-05-10 04:45] LABS: BASOPHILS ABSOLUTE AUTO 0.08 K/mm3 (0.00-0.23); BASOPHILS PERCENT AUTO 0 % (0-2); EOSINOPHILS ABSOLUTE AUTO 0.08 K/mm3 (0.00-0.68); EOSINOPHILS PERCENT AUTO 0 % (0-6); Hematocrit 34.1 % (33.0-51.0); IMMATURE GRAN ABSOLUTE AUTO 0.23 K/mm3 (0.00-0.10); IMMATURE GRAN PERCENT AUTO 1 % (0-1); LYMPHOCYTES ABSOLUTE AUTO 1.69 K/mm3 (0.84-5.20); LYMPHOCYTES PERCENT AUTO 9 % (21-46); MONOCYTES ABSOLUTE AUTO 0.94 K/mm3 (0.16-1.47); MONOCYTES PERCENT AUTO 5 % (4-13); Mean Corpuscular HGB 25.1 pg (26.0-34.0); Mean Corpuscular HGB Conc 32.3 g/dL (31.5-36.5); Mean Corpuscular Volume 78 fL (80-100); Mean Platelet Volume 9.1 fL (9.1-12.4); NEUTROPHILS ABSOLUTE AUTO 16.78 K/mm3 (1.96-9.15); NEUTROPHILS PERCENT AUTO 85 % (41-73); Platelet Count 426 K/mm3 (150-400); RDW Coefficient Variation 18.1 % (11.7-14.2); RDW Standard Deviation 50.7 fL (35.1-46.3); Red Blood Cell Count 4.39 M/mm3 (3.80-5.20)
[2023-05-10 04:49] VITALS: BP 106/66
[2023-05-10 05:08] LABS: Albumin, Blood 2.1 g/dL (3.4-5.0); Anion Gap 5 mmol/L (6-16); Blood Urea Nitrogen 13 mg/dL (8-24); Bun/Creatinine Ratio 20.2 (12.0-20.0); CO2, Blood 20 mmol/L (21-32); Calcium, Blood 8.5 mg/dL (8.5-10.1); Chloride, Blood 115 mmol/L (98-108); Creatinine, Blood 0.65 mg/dL (0.40-1.00); Glomerular Filtration Rate 100 (60-); Glucose, Blood 90 mg/dL (70-99); Phosphorus, Blood 1.9 mg/dL (2.5-4.9); Potassium, Blood 3.8 mmol/L (3.5-5.5); Sodium, Blood 140 mmol/L (136-145); Vancomycin, Random 12.4 ug/mL
--- NOTE | 2023-05-10 06:13 | NUR ---
SUMMARY PATIENT SLEEPING OFF AND ON T/O NIGHT. C/O PAIN TO LEGS AND BACK, CHRONIC IN NATURE. DRESSING TO BACK REMAINS CD&I. COCCYX DRESSING CHANGED DUE TO BEING SOILED WITH LARGE LIQUID BM. RED ABRASION AREA TO COCCYX CLEANSED WITH NS AND DRESSED WITH FOAM DRESSING. LEGS AND ARMS APPEAR TO SPASM WITH REPOSITIONING, AND ROM. PATIENT REMAINS IN SINUS RHYTHM, HAD 1 RUN OF AFIB WITH RVR IN ICU BEFORE TRANSFER TO PCU.
[2023-05-10 07:40] VITALS: BP 122/89
[2023-05-10 12:02] VITALS: BP 131/93
[2023-05-10 17:05] VITALS: BP 124/87
--- NOTE | 2023-05-10 17:08 | NUR ---
SHIFT SUMMARY PT REMAINS ALERT AND ORIENTED. BP STABLE. HR HAS BEEN NSR 80'S. PT COMPLAINED OF PAIN TO BOTH LOWER EXTREMETIES THIS SHIFT AND MEDICATED PER EMAR. PT CONTINENT OF URINE. PT INCONTINENT OF BOWEL, AND AFTER MULTIPLE LIQUID BOWEL MOVEMENTS A RECTAL TUBE WAS PLACED. MULTIPLE WOUNDS WITH CLEAN FOAM DRESSINGS IN PLACE. PT PROVIDED SOFT TOUCH CALL LIGHT THIS SHIFT BECAUSE SHE IS UNABLE TO USE REGULAR CALL LIGHT WITH CONTRACTURES. PT REPOSITIONED Q2H AND MORE OFTEN NEEDED. [facility] CALLED WITH AN UPDATE THIS SHIFT. PT TO BE TRANSFERRED ONCE BED IS AVAILABLE. WILL CONTINUE TO MONITOR AND REPORT TO ONCOMING RN
[2023-05-10 19:50] VITALS: BP 129/86
[2023-05-11 00:10] VITALS: BP 131/87
[2023-05-11 04:38] LABS: C DIFFICILE DNA POSITIVE (Negative)
[2023-05-11 04:45] VITALS: BP 113/78
[2023-05-11 04:56] LABS: BASOPHILS ABSOLUTE AUTO 0.06 K/mm3 (0.00-0.23); BASOPHILS PERCENT AUTO 0 % (0-2); EOSINOPHILS ABSOLUTE AUTO 0.15 K/mm3 (0.00-0.68); EOSINOPHILS PERCENT AUTO 1 % (0-6); Hematocrit 31.6 % (33.0-51.0); IMMATURE GRAN ABSOLUTE AUTO 0.09 K/mm3 (0.00-0.10); IMMATURE GRAN PERCENT AUTO 1 % (0-1); LYMPHOCYTES ABSOLUTE AUTO 2.65 K/mm3 (0.84-5.20); LYMPHOCYTES PERCENT AUTO 19 % (21-46); MONOCYTES ABSOLUTE AUTO 0.81 K/mm3 (0.16-1.47); MONOCYTES PERCENT AUTO 6 % (4-13); Mean Corpuscular HGB 24.6 pg (26.0-34.0); Mean Corpuscular HGB Conc 31.6 g/dL (31.5-36.5); Mean Corpuscular Volume 78 fL (80-100); Mean Platelet Volume 9.3 fL (9.1-12.4); NEUTROPHILS ABSOLUTE AUTO 10.01 K/mm3 (1.96-9.15); NEUTROPHILS PERCENT AUTO 73 % (41-73); Platelet Count 363 K/mm3 (150-400); RDW Coefficient Variation 18.2 % (11.7-14.2); RDW Standard Deviation 51.6 fL (35.1-46.3); Red Blood Cell Count 4.07 M/mm3 (3.80-5.20); White Blood Cell Count 13.77 K/mm3 (4.00-11.30)
[2023-05-11 05:20] LABS: Anion Gap 4 mmol/L (6-16); Blood Urea Nitrogen 8 mg/dL (8-24); Bun/Creatinine Ratio 15.4 (12.0-20.0); CO2, Blood 24 mmol/L (21-32); Calcium, Blood 8.1 mg/dL (8.5-10.1); Chloride, Blood 114 mmol/L (98-108); Creatinine, Blood 0.52 mg/dL (0.40-1.00); Glomerular Filtration Rate 106 (60-); Glucose, Blood 79 mg/dL (70-99); Potassium, Blood 3.6 mmol/L (3.5-5.5); Sodium, Blood 142 mmol/L (136-145)
--- NOTE | 2023-05-11 05:57 | NUR ---
SHIFT SUMMARY A/OX4, BEDREST, W/C BOUND AT BASELINE. TELE SR/ST 90-110. SPO2 >92% ON RA. PICC LINE TO PABLITO. RECTAL TUBE IN PLACE WITH LIQUID OUTPUT, SAMPLE SENT, PLACED IN CONTACT ISOLATION FOR C.DIFF. VSS, NO ACUTE CHANGES AT THIS TIME. BED IN LOWEST POSITION WITH CALL LIGHT IN REACH. WILL CONTINUE TO MONITOR AND REPORT TO ONCOMING RN.
[2023-05-11 08:19] VITALS: BP 131/89
[2023-05-11 11:55] VITALS: BP 149/104
--- NOTE | 2023-05-11 14:03 | NUR ---
Patient is lying in bed and alert. She tells me about the horrible season that she has been in and about the possible trasport up to [facility] to deal with the vladimir in her back. She tells me about her support system and how it is not ideal but it is what she has. She shares about also having a niece that lives in [place] that will visit her up there when she arrives. We explore sources of meaning and purpose and sources of inspiration and strength. Patient is tearful at times but is very welcoming of prayer, which I gladly supply. She thanked me for the time, care and prayer and showed signs of an elevated mood.
[2023-05-11 15:57] VITALS: BP 147/79
--- NOTE | 2023-05-11 18:36 | NUR ---
SHIFT SUMMARY NO ACUTE CHANGES THIS SHIFT. A&OX4. SP02>90% ON RA. TELEMETRY SHOWS SINUS TACH, HR 100'S. VSS. RECTAL TUBE DRAINING LIQUID BROWN STOOL TO GRAVITY. PURWIK TO LIS, YELLOW URINE. ABX INFUSED THIS SHIFT. PT REPOSITIONED Q2H. C/O OF PAIN, MEDICATED PER EMAR X1. MEPLEX CHANGED ON BACK THIS SHIFT. CALL LIGHT IN REACH.
[2023-05-11 20:26] LABS: Vancomycin, Trough 18.2 ug/mL (5.0-10.0)
[2023-05-11 20:47] VITALS: BP 135/78
[2023-05-12 00:38] VITALS: BP 125/78
[2023-05-12 04:00] VITALS: BP 130/81
[2023-05-12 05:25] LABS: BASOPHILS ABSOLUTE AUTO 0.06 K/mm3 (0.00-0.23); BASOPHILS PERCENT AUTO 0 % (0-2); EOSINOPHILS ABSOLUTE AUTO 0.18 K/mm3 (0.00-0.68); EOSINOPHILS PERCENT AUTO 1 % (0-6); Hematocrit 34.2 % (33.0-51.0); Hemoglobin 10.8 g/dL (11.5-16.0); IMMATURE GRAN ABSOLUTE AUTO 0.07 K/mm3 (0.00-0.10); IMMATURE GRAN PERCENT AUTO 1 % (0-1); LYMPHOCYTES ABSOLUTE AUTO 2.57 K/mm3 (0.84-5.20); LYMPHOCYTES PERCENT AUTO 18 % (21-46); MONOCYTES ABSOLUTE AUTO 0.94 K/mm3 (0.16-1.47); MONOCYTES PERCENT AUTO 7 % (4-13); Mean Corpuscular HGB 24.4 pg (26.0-34.0); Mean Corpuscular HGB Conc 31.6 g/dL (31.5-36.5); Mean Corpuscular Volume 77 fL (80-100); Mean Platelet Volume 8.9 fL (9.1-12.4); NEUTROPHILS ABSOLUTE AUTO 10.48 K/mm3 (1.96-9.15); NEUTROPHILS PERCENT AUTO 73 % (41-73); Platelet Count 389 K/mm3 (150-400); RDW Coefficient Variation 17.8 % (11.7-14.2); RDW Standard Deviation 50.4 fL (35.1-46.3); Red Blood Cell Count 4.42 M/mm3 (3.80-5.20)
[2023-05-12 05:43] LABS: Anion Gap 6 mmol/L (6-16); Blood Urea Nitrogen 11 mg/dL (8-24); Bun/Creatinine Ratio 23.2 (12.0-20.0); CO2, Blood 28 mmol/L (21-32); Calcium, Blood 8.1 mg/dL (8.5-10.1); Chloride, Blood 107 mmol/L (98-108); Creatinine, Blood 0.47 mg/dL (0.40-1.00); Glomerular Filtration Rate 108 (60-); Glucose, Blood 92 mg/dL (70-99); Phosphorus, Blood 2.4 mg/dL (2.5-4.9); Potassium, Blood 3.2 mmol/L (3.5-5.5); Sodium, Blood 141 mmol/L (136-145)
[2023-05-12 07:49] VITALS: BP 143/87
--- NOTE | 2023-05-12 12:54 | NUR ---
PT TRANSFERRED FROM ROOM 306 WAS A RAPID RESPONSE FROM MEDICAL FLOOR, REPORT RECEIVED FROM PRECIOUS BRYSON. PT ARRIVED VIA BED, PT WAS ASLEEP POSSIBLY FROM ALL ATIVAN GIVEN POST SEIZURES, 2 ADDITIONAL BAGS OF DEPAKOTE WAS GIVEN PRIOR TO TRANSFER. VITALS HRR SR AT 60'S, SATS ABOVE 93% ON 2L OF O2, SBP SOFT 80-90'S MAP >70, AFEBRILE. PT WITH SISTER AND TIER IN AT THE BEDSIDE. SEIZURE PAD IN PLACE AND BED LOWERED FOR PT'S SAFETY. PT REMAINS ASLEEP AT THIS TIME, CALL LIGHTS IN REACH WILL CONTINUE TO MONITOR
[2023-05-12 16:06] VITALS: BP 144/94
--- NOTE | 2023-05-12 17:58 | NUR ---
PT SUMMARY: PT TRANSITIONED TO MEDICAL STATUS WITH TELE. NO ACUTE CHANGE FOR THE SHIFT VITALS HAS BEEN STABLE. PT STILL ON A BED LIST UP IN [facility] AWAITING FOR TO BE TRANSFERRED. HOLLIE TRANSFER PERSON FROM [facility] CALLED UPDATE REGARDING PT'S STATUS WAS GIVEN. PT REMAINED ALERT AND ORIENTED X4, REPOSITIONED IN BED SIDE TO SIDE, OFF LAODING PRESSURE ON THE BACK WHERE WOUND/HARDWARE EXPOSURE IS AT, DRESSINGS WERE ALL CHANGED TODAY AFTER BED BATH, PT WAS ALSO MEDICATED WITH NORCO TWICE FOR PAIN, PT VERBALIZED EFFECTIVENESS. RECTAL TUBE WAS REMOVED PER PT'S REQUESTS ALSO PT HASNT HAD MUCH STOOL OUTPUT SINCE THIS MORNING. PUREWICK IN PLACE WITH YELLOW URINE OUTPUT. PT TOLERATING PO INTAKE NO ISSUES. CAREGIVER CAME IN TO VISIT PT, WAS ALSO GIVEN AN UPDATE WITH PLAN OF CARE. NO OTHER ISSUES AT THIS TIME, PT CALLS APPROPRIATELY. WILL REPORT TO ONCOMING SHIFT
[2023-05-12 20:41] VITALS: BP 150/88
[2023-05-13 03:13] VITALS: BP 131/90
--- NOTE | 2023-05-13 05:20 | NUR ---
SHIFT SUMMARY A&Ox4, CALLS AND COMMUNICATES NEEDS APPROPRIATELY. WITHDRAWN AT TIMES. BP STABLE, SINUS 90's, DENIES CP/PRESSURE. SpO2> 92% RA, DENIES SOB. MANAGED PT's PAIN PER EMAR. UPDATED [facility] TRANSFER STAFF. PROVIDED Q2 TURNS. INCONTINENT/CONTINENT OF URINE, PUREWICK AND ATTENDS IN PLACE. NO OTHER EVENTS, WILL REPORT TO ONCOMING RN.
[2023-05-13 07:43] LABS: Vancomycin, Trough 19.4 ug/mL (5.0-10.0)
[2023-05-13 08:07] VITALS: BP 137/86
[2023-05-13 08:31] LABS: BASOPHILS ABSOLUTE AUTO 0.08 K/mm3 (0.00-0.23); BASOPHILS PERCENT AUTO 1 % (0-2); EOSINOPHILS ABSOLUTE AUTO 0.27 K/mm3 (0.00-0.68); EOSINOPHILS PERCENT AUTO 2 % (0-6); Hematocrit 36.5 % (33.0-51.0); Hemoglobin 11.6 g/dL (11.5-16.0); IMMATURE GRAN ABSOLUTE AUTO 0.22 K/mm3 (0.00-0.10); IMMATURE GRAN PERCENT AUTO 2 % (0-1); LYMPHOCYTES ABSOLUTE AUTO 2.88 K/mm3 (0.84-5.20); LYMPHOCYTES PERCENT AUTO 20 % (21-46); MONOCYTES ABSOLUTE AUTO 1.32 K/mm3 (0.16-1.47); MONOCYTES PERCENT AUTO 9 % (4-13); Mean Corpuscular HGB 24.5 pg (26.0-34.0); Mean Corpuscular HGB Conc 31.8 g/dL (31.5-36.5); Mean Corpuscular Volume 77 fL (80-100); Mean Platelet Volume 9.1 fL (9.1-12.4); NEUTROPHILS ABSOLUTE AUTO 9.95 K/mm3 (1.96-9.15); NEUTROPHILS PERCENT AUTO 68 % (41-73); Platelet Count 382 K/mm3 (150-400); RDW Coefficient Variation 17.9 % (11.7-14.2); RDW Standard Deviation 49.9 fL (35.1-46.3); Red Blood Cell Count 4.74 M/mm3 (3.80-5.20); White Blood Cell Count 14.72 K/mm3 (4.00-11.30)
[2023-05-13 08:47] LABS: Bun/Creatinine Ratio 30.1 (12.0-20.0); Calcium, Blood 8.2 mg/dL (8.5-10.1); Creatinine, Blood 0.43 mg/dL (0.40-1.00); Potassium, Blood 3.4 mmol/L (3.5-5.5)
[2023-05-13 12:09] VITALS: BP 130/90
[2023-05-13 16:16] VITALS: BP 146/100
--- NOTE | 2023-05-13 17:53 | NUR ---
END OF SHIFT NOTE PT A&OX4 T/O SHIFT, ABLE TO CALL APPROPRIATELY AND MAKE NEEDS KNOWN TO STAFF. COMPLIENT WITH CARE. HR ST, MOSTLY 100'S. BP STABLE. PT DENIES CP/PRESSURE. SPO2 >90% ON RA, PT DENIES SOB. NO NOTICEABLE DYSPNEA. PT REPORTS FREQUENT, CONTINUOUS PAIN. PAIN MANAGED WITH REPOSITIONING AND PER EMAR. Q2 TURNS PERFORMED BY STAFF. PUREWICK AND ATTENDS IN PLACE DRAINING YEELLOW URINE. CALL LIGHT WITHIN REACH, BED IN LOWEST POSITION. WILL REPORT TO ONCOMING NOC RN.
--- NOTE | 2023-05-13 20:30 | NUR ---
ASSESSMENT/ ASSUMED CARE PT AWAKE SITTIN UP IN BED WATCHING TV. STATES,"PAIN IS STILL THERE, I'M JUST SLEEPY NOW. I HAD A LONG DAY". LUNGS CLEAR ON ROOMAIR. RESP EVEN AND NONLABORED. DENIES SOB OR COUGH. HEART RATE ELEVATED IN THE 110'S. BP STABLE. NO EDEMA. HS MEDS GIVEN. BT+ ABD SOFT AND NONTENDER. DENIES N/V. PICC LINE TO RIGHT UPPER ARM, SALINE CLARE. SITE CLEAR AND DRSG INTACT. VSS. DRSG TO LOW BACK INTACT. HEEL PROTECTORS ON. REPOSITIONED PT. PASHA AND ATTENDS ON.
[2023-05-13 20:31] VITALS: BP 128/85
[2023-05-14 04:13] VITALS: BP 108/84
[2023-05-14 04:28] LABS: BASOPHILS ABSOLUTE AUTO 0.06 K/mm3 (0.00-0.23); BASOPHILS PERCENT AUTO 0 % (0-2); EOSINOPHILS PERCENT AUTO 2 % (0-6); Hematocrit 36.1 % (33.0-51.0); Hemoglobin 11.4 g/dL (11.5-16.0); IMMATURE GRAN ABSOLUTE AUTO 0.38 K/mm3 (0.00-0.10); IMMATURE GRAN PERCENT AUTO 2 % (0-1); LYMPHOCYTES ABSOLUTE AUTO 3.79 K/mm3 (0.84-5.20); LYMPHOCYTES PERCENT AUTO 23 % (21-46); MONOCYTES ABSOLUTE AUTO 1.42 K/mm3 (0.16-1.47); MONOCYTES PERCENT AUTO 9 % (4-13); Mean Corpuscular HGB 24.4 pg (26.0-34.0); Mean Corpuscular HGB Conc 31.6 g/dL (31.5-36.5); Mean Corpuscular Volume 77 fL (80-100); Mean Platelet Volume 8.8 fL (9.1-12.4); NEUTROPHILS ABSOLUTE AUTO 10.51 K/mm3 (1.96-9.15); NEUTROPHILS PERCENT AUTO 64 % (41-73); NRBC ABSOLUTE 0.02 K/mm3 (0.00-0.02); NRBC Auto 0.1 /100 WBC (0.0-0.2); Platelet Count 393 K/mm3 (150-400); RDW Coefficient Variation 18.2 % (11.7-14.2); RDW Standard Deviation 50.6 fL (35.1-46.3); Red Blood Cell Count 4.67 M/mm3 (3.80-5.20); White Blood Cell Count 16.46 K/mm3 (4.00-11.30)
[2023-05-14 04:44] LABS: Creatinine, Blood 0.51 mg/dL (0.40-1.00)
--- NOTE | 2023-05-14 05:57 | NUR ---
SHIFT SUMMARY PT RESTING QUIETLY. TURNED Q2HR. VSS. PT INCONT OF STOOL THIS AM. PUREWICK AND ATTENDS CHANGED. C/O PAIN TO BACK DURING THE NIGHT, MED WITH NORCO. REPORT TO ON COMING NURSE
[2023-05-14 07:50] VITALS: BP 123/96
[2023-05-14 16:06] VITALS: BP 133/92
--- NOTE | 2023-05-14 18:20 | NUR ---
END OF SHIFT NOTE PT A&OX4, ABLE TO CALL APPROPRIATELY AND MAKE NEEDS KNOWN TO STAFF. COMPLIENT WITH CARE. HR ST, MOSTLY 100-110'S. BP STABLE, PT DENIES CP/PRESSURE. SPO2 >90% ON RA, PT ON 2L O2 VIA NC WHILE SLEEPING TO MAINTAIN SPO2 >90%. PT WITH MULTIPLE LIQUID BROWN STOOL THIS SHIFT. PUREWICK AND ATTENDS CHANGED. PT REPOSITIONED FREQUENTLY T/O SHIFT. BACK PAIN REPORTED THIS SHIFT, MEDICATED PER EMAR. UPDATE PROVIDED TO [facility] RN, NO BEDS AVAILABLE AT THIS TIME. CALL LIGHT WITHIN REACH, WILL REPORT TO ONCOMING NOC RN.
[2023-05-14 21:00] VITALS: BP 127/88
--- NOTE | 2023-05-15 00:48 | NUR ---
PCU 11 TRANSFER TO [facility] 330 PATIENT ARRIVED AT 2220 BY BED TO ROOM 330 ON MED FLOOR. PATIENT ALERT AND ORIENTED TO PERSON, PLACE, SITUATION. PT. ARRIVED WITH SOFT TOUCH CALL LIGHT, PUREWICK IN PLACE. FOUR PERSON TRANSFER WITH LIFT SHEET TO MED FLOOR BED, PATIENT TOLERATED WELL. PATIENT ORIENTED TO ROOM.
--- NOTE | 2023-05-15 04:55 | NUR ---
SHIFT SUMMARY PATIENT IS OF PLEASANT AFFECT. ALERT AND ORIENTED TO PERSON, PLACE, SELF AND SITUATION. PATIENT HAS CONSTRACTURES TO BILATERAL UPPER ARMS AND HANDS; PLACED ROLLED UP WASH CLOTHS IN PATIENTS HANDS. PATIENT HAS HAD LOOSE STOOL THIS SHIFT; PUREWICK REMOVED, ATTENDS IN PLACE. PATIENT ON 2LPM VIA NASAL CANNULA WHILE SLEEPING. PATIENT DENIES CHEST PAIN OR PRESSURE. PAIN EVALUATED AND TREATED PER EMAR. PATIENT IS CURRENTLY WAITING FOR AN OPEN BED AT [facility] TO TRANSFER FOR FURTHER WOUND TREATMENT. PATIENT IS NONAMBULATORY; REPOSITIONED T/O SHIFT. PATIENT IS ABLE TO MAKE HER NEEDS KNOWN AND CALLS APPROPRIATELY. BED IS IN THE LOWEST POSITION, CALL LIGHT WITHIN REACH.
[2023-05-15 08:10] VITALS: BP 105/76
[2023-05-15 08:36] LABS: BASOPHILS ABSOLUTE AUTO 0.09 K/mm3 (0.00-0.23); BASOPHILS PERCENT AUTO 1 % (0-2); EOSINOPHILS ABSOLUTE AUTO 0.38 K/mm3 (0.00-0.68); EOSINOPHILS PERCENT AUTO 3 % (0-6); Hematocrit 36.1 % (33.0-51.0); Hemoglobin 11.4 g/dL (11.5-16.0); IMMATURE GRAN PERCENT AUTO 3 % (0-1); LYMPHOCYTES ABSOLUTE AUTO 3.64 K/mm3 (0.84-5.20); LYMPHOCYTES PERCENT AUTO 25 % (21-46); MONOCYTES ABSOLUTE AUTO 1.39 K/mm3 (0.16-1.47); MONOCYTES PERCENT AUTO 10 % (4-13); Mean Corpuscular HGB 24.6 pg (26.0-34.0); Mean Corpuscular HGB Conc 31.6 g/dL (31.5-36.5); Mean Corpuscular Volume 78 fL (80-100); Mean Platelet Volume 8.7 fL (9.1-12.4); NEUTROPHILS ABSOLUTE AUTO 8.54 K/mm3 (1.96-9.15); NEUTROPHILS PERCENT AUTO 59 % (41-73); Platelet Count 314 K/mm3 (150-400); RDW Coefficient Variation 18.1 % (11.7-14.2); RDW Standard Deviation 50.6 fL (35.1-46.3); Red Blood Cell Count 4.63 M/mm3 (3.80-5.20); White Blood Cell Count 14.44 K/mm3 (4.00-11.30)
[2023-05-15 08:46] LABS: Albumin, Blood 1.7 g/dL (3.4-5.0); Anion Gap 4 mmol/L (6-16); Blood Urea Nitrogen 16 mg/dL (8-24); Bun/Creatinine Ratio 31.8 (12.0-20.0); CO2, Blood 30 mmol/L (21-32); Calcium, Blood 8.2 mg/dL (8.5-10.1); Chloride, Blood 106 mmol/L (98-108); Glomerular Filtration Rate 107 (60-); Glucose, Blood 83 mg/dL (70-99); Potassium, Blood 4.2 mmol/L (3.5-5.5); Sodium, Blood 140 mmol/L (136-145)
[2023-05-15 09:07] LABS: Vancomycin, Trough 16.4 ug/mL (5.0-10.0)
[2023-05-15 16:26] VITALS: BP 111/79
--- NOTE | 2023-05-15 17:34 | NUR ---
PT PERLA LEAL. APPRECIATIVE OF CARE. MED PER EMAR. CLEANED FROM B/M THIS AFT. REPLACED 1 MEPILEX NEEDED ON GLUTEOUS. STILL AWAITING TRANSFER TO [facility] FOR SURG. NO NEW CONCERNS NOTED. BED IN LOW POSITION, CALL LITE IN REACH, CALLS APPROP
[2023-05-15 20:12] VITALS: BP 123/89
[2023-05-16 05:24] LABS: BASOPHILS ABSOLUTE AUTO 0.07 K/mm3 (0.00-0.23); BASOPHILS PERCENT AUTO 1 % (0-2); EOSINOPHILS ABSOLUTE AUTO 0.27 K/mm3 (0.00-0.68); EOSINOPHILS PERCENT AUTO 2 % (0-6); Hemoglobin 10.8 g/dL (11.5-16.0); IMMATURE GRAN ABSOLUTE AUTO 0.35 K/mm3 (0.00-0.10); IMMATURE GRAN PERCENT AUTO 2 % (0-1); LYMPHOCYTES PERCENT AUTO 25 % (21-46); MONOCYTES ABSOLUTE AUTO 1.12 K/mm3 (0.16-1.47); MONOCYTES PERCENT AUTO 8 % (4-13); Mean Corpuscular HGB 24.2 pg (26.0-34.0); Mean Corpuscular HGB Conc 30.9 g/dL (31.5-36.5); Mean Corpuscular Volume 79 fL (80-100); Mean Platelet Volume 8.8 fL (9.1-12.4); NEUTROPHILS ABSOLUTE AUTO 9.41 K/mm3 (1.96-9.15); NEUTROPHILS PERCENT AUTO 63 % (41-73); Platelet Count 347 K/mm3 (150-400); RDW Coefficient Variation 17.9 % (11.7-14.2); RDW Standard Deviation 51.2 fL (35.1-46.3); Red Blood Cell Count 4.46 M/mm3 (3.80-5.20); White Blood Cell Count 14.92 K/mm3 (4.00-11.30)
[2023-05-16 05:46] LABS: Bun/Creatinine Ratio 43.2 (12.0-20.0); Calcium, Blood 8.2 mg/dL (8.5-10.1); Creatinine, Blood 0.49 mg/dL (0.40-1.00); Potassium, Blood 3.9 mmol/L (3.5-5.5)
--- NOTE | 2023-05-16 06:02 | NUR ---
SHIFT SUMMARY PRN PAIN MEDICATION GIVEN X2 THIS SHIFT WITH POSITIVE EFFECT. NO OTHER EVENTS, PT CALLS APPROPRIATELY FOR BEDPAN. FIRE SAFETY REVIEWED, NO IGNITION SOURCES
[2023-05-16 08:08] VITALS: BP 105/73
[2023-05-16 14:45] VITALS: BP 116/84
--- NOTE | 2023-05-16 18:43 | NUR ---
SHIFT SUMMARY PT AXO, PLEASANT AND COOPERATIVE WITH CARE. VSS. PT MEDICATED FOR PAIN PER EMAR. PT DENIES IGNITION SOURCES AND EDUCATED ON FIRE PREVENTION. REPOSITIONED Q2. IV PATENT AND SALINE LOCKED. DRESSING TO BACK CHANGED THIS SHIFT. LARGE AMOUNT OF PURULENT DRAINAGE. BED IN LOW POSITION, CALL LIGHT WITHIN REACH.
[2023-05-16 19:44] VITALS: BP 109/75
[2023-05-17 02:58] VITALS: BP 124/86
--- NOTE | 2023-05-17 06:38 | NUR ---
SHIFT SUMMARY PT VERY ANXIOUS AND TEARFUL THIS SHIFT. PRN PAIN MEDICATIONS GIVEN. PT DID NOT SLEEP MUCH. FIRE SAFETY EDUCATION REVIEWED, NO IGNITION SOURCES
[2023-05-17 07:13] LABS: BASOPHILS ABSOLUTE AUTO 0.07 K/mm3 (0.00-0.23); BASOPHILS PERCENT AUTO 0 % (0-2); EOSINOPHILS ABSOLUTE AUTO 0.23 K/mm3 (0.00-0.68); EOSINOPHILS PERCENT AUTO 2 % (0-6); Hemoglobin 10.4 g/dL (11.5-16.0); IMMATURE GRAN ABSOLUTE AUTO 0.24 K/mm3 (0.00-0.10); IMMATURE GRAN PERCENT AUTO 2 % (0-1); LYMPHOCYTES ABSOLUTE AUTO 3.61 K/mm3 (0.84-5.20); LYMPHOCYTES PERCENT AUTO 23 % (21-46); MONOCYTES PERCENT AUTO 6 % (4-13); Mean Corpuscular HGB 24.2 pg (26.0-34.0); Mean Corpuscular HGB Conc 31.5 g/dL (31.5-36.5); Mean Corpuscular Volume 77 fL (80-100); Mean Platelet Volume 9.4 fL (9.1-12.4); NEUTROPHILS ABSOLUTE AUTO 10.45 K/mm3 (1.96-9.15); NEUTROPHILS PERCENT AUTO 67 % (41-73); Platelet Count 339 K/mm3 (150-400); RDW Coefficient Variation 17.8 % (11.7-14.2); RDW Standard Deviation 49.7 fL (35.1-46.3); Red Blood Cell Count 4.29 M/mm3 (3.80-5.20)
[2023-05-17 07:44] VITALS: BP 97/73
[2023-05-17 14:55] VITALS: BP 98/77
--- NOTE | 2023-05-17 17:42 | NUR ---
SHIFT SUMMARY- PT IS A/O, PLESANT AND COOPERATIVE. SHE IS EATING AND DRINKING WELLL. SHE WORKED WITH PT AND OT THIS SHIFT AND TOLORATED WELL. SHE RECIEVED A BED BATH THIS SHIFT. ROSENDOX CHANGED AND NEW PICTURES TAKEN. HER BED IS IN THE LOW POSITON AND CALL LIGHT IS WITIN REACH.
[2023-05-17 19:38] VITALS: BP 121/86
--- NOTE | 2023-05-18 04:57 | NUR ---
END OF SHIFT SUMMARY PT PLEASANT AND COOPERATIVE WITH CARE PROVIDED. PT A&O x4, VSS. PT C/O PAIN TO COCCYX REGION AND BILAT LEG PAIN. PAIN MANAGED WITH PRN NORCO AND IV FENTANYL. PT REPOSITIONED Q2 HOURS FOR COMFORT AND TO MAINTAIN SKIN INTEGRITY. 0450: PT APPEARS TO BE RESTING PEACEFULLY. PT CALLS APPROPRIATELY WITH SPECIAL SOFT TOUCH CALL LIGHT IN PLACE. PT ON BEDREST, USES THE BED BATES TO VOID. PINK MEPILEX COVERING BOTH HEELS, AND MEPILEX BORDER SACRUM IN PLACE. CARE STAFF FROM [facility] CALLED TO GET AN UPDATE ON PT. CALL LIGHT WITHIN REACH, WCTM.
[2023-05-18 06:35] LABS: Hematocrit 32.8 % (33.0-51.0); Hemoglobin 10.2 g/dL (11.5-16.0); Mean Corpuscular HGB 24.4 pg (26.0-34.0); Mean Corpuscular HGB Conc 31.1 g/dL (31.5-36.5); Mean Corpuscular Volume 79 fL (80-100); Mean Platelet Volume 9.3 fL (9.1-12.4); Platelet Count 279 K/mm3 (150-400); RDW Coefficient Variation 17.6 % (11.7-14.2); RDW Standard Deviation 50.3 fL (35.1-46.3); Red Blood Cell Count 4.18 M/mm3 (3.80-5.20); White Blood Cell Count 10.98 K/mm3 (4.00-11.30)
[2023-05-18 07:00] LABS: Anion Gap 3 mmol/L (6-16); Blood Urea Nitrogen 18 mg/dL (8-24); Bun/Creatinine Ratio 39.4 (12.0-20.0); CO2, Blood 30 mmol/L (21-32); Calcium, Blood 8.5 mg/dL (8.5-10.1); Chloride, Blood 106 mmol/L (98-108); Creatinine, Blood 0.46 mg/dL (0.40-1.00); Glomerular Filtration Rate 109 (60-); Glucose, Blood 89 mg/dL (70-99); Phosphorus, Blood 3.5 mg/dL (2.5-4.9); Potassium, Blood 3.9 mmol/L (3.5-5.5); Sodium, Blood 139 mmol/L (136-145)
[2023-05-18 07:28] VITALS: BP 120/79
[2023-05-18 21:08] VITALS: BP 104/70
--- NOTE | 2023-05-19 02:12 | NUR ---
NURSE NOTE "HUBER" NURSE FROM [facility] CALLED FOR UPDATE. VOICED NO BED AVAILABLE AT THIS TIME, BUT WOULD CALL BACK "EVERY 12 HRS" FOR UPDATES UNTIL BED AVAILABLE.
[2023-05-19 03:00] VITALS: BP 124/92
--- NOTE | 2023-05-19 04:29 | NUR ---
SENIOR BUSINESS MANAGER SUMMARY VSS. WAS INTERMITTENTLY AGITATED, ANXIOUS AT SHIFT COMMENCE. PAIN MEDS GIVEN, REASSURANCE AND SUPPORT VOICED. CALMED DOWN. HAS BEEN RESTING QUIETLY WITH HOB ELEVATED AND FEW LINEN ON DUE TO C/O FEELING TOO WARM, (AFEBRILE). [facility] CALLED RE UPDATE AND WILL CALL BACK "EVERY 12 HRS" UNTIL BED FOUND. REPOSITIONED INTERMITTENTLY FOR COMFORT. CALL LIGHT IN REACH. ISOLATION PREACAUTIONS MAINTAINED
[2023-05-19 07:45] VITALS: BP 115/92
[2023-05-19 15:26] VITALS: BP 113/70
--- NOTE | 2023-05-19 18:30 | NUR ---
SHIFT SUMMARY PATIENT AWAKE AND INTERACTIVE. PATIENT CONTINUES TO HAVE EPISODES OF BACK PAIN. PATIENT UP TO CHAIR AFTER BATH FOR A BIT. [facility] CALLED FOR UPDATE FOR PATIENT AGAIN TODAY. NO BED AVAILABLE FOR PATIENT IN [place] YET. DRESSINGS CHANGED OVER WOUNDS. HARDWARE VISIBLE IN WOUND BED. PATIENT CONTINUES TO HAVE LIQUID STOOLS. PATIENT MEDICATED NEEDED FOR PAIN.
[2023-05-19 19:40] VITALS: BP 124/89
[2023-05-20 03:58] VITALS: BP 123/80
--- NOTE | 2023-05-20 04:15 | NUR ---
SHIFT SUMMARY; NO ACUTE CHANGES OVERNIGHT. 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 THE PT IS CONTINENT OF URINE AND IS ABLE TO USE THE BEDPAN, HOWEVER, THE PT IS INCONTINENT OF BOWEL. THE PTS LEGS WERE PAINFUL FOR HER EARLY IN THE EVENING, I HAD STRECTHED HER LEGS FOR HER MUTIPLE TIMES, MEDICATED HER WITH PRN PAIN MEDICATION AND APPLIED MUSCLE RUB WITH GOOD RELIEF. THE PT HAS TKO RUNNING THROUGH HER PICC. THE PT DENIES ANY CHEST PAIN/PRESSURE, SOB OR N/V THIS SHIFT. CURRENTLY THE PT IS SLEEPING IN BED WITH THE BED IN THE LOWEST POSITION AND THE EASY TOUCH CALL LIGHT WITHIN REACH. FIRE SAFETY MAINTAINED T/O THE NIGHT.
[2023-05-20 07:41] VITALS: BP 131/96
[2023-05-20 15:11] VITALS: BP 136/94
--- NOTE | 2023-05-20 16:02 | NUR ---
SHIFT SUMMARY PATIENT IS ALERT AND ORIENTED. PATIENT HAS HAD NO ACUTE EVENTS THIS SHIFT. VITAL SIGNS REVIEWED. PATIENT IS IN ISOLATION FOR CDIFF AND HAS HAD 2 BOWEL MOVEMENTS THIS SHIFT. PATIENT HAS BEEN MEDICATED FOR PAIN THIS SHIFT. PATIENT HAS BEEN TURNED NEEDED. PATIENT HAS NOT REPORTED NAUSEA, SOB OR VOMITTING THIS SHIFT. [facility] CALLED AND WAS GIVEN UPDATE. NO BED OF YET. BED IN LOCKED AND LOWEST POSITION. CALL LIGHT IN PLACE. WILL MONITOR UNTIL SHIFT CHANGE.
[2023-05-20 21:23] VITALS: BP 124/84
[2023-05-21 03:14] VITALS: BP 128/96
--- NOTE | 2023-05-21 04:18 | NUR ---
SHIFT SUMMARY; PT COMPLAINED OF LEG PAIN FREQUENTLY FOR THE FIRST HALF OF THE SHIFT. PRN PAIN MEDICATIONS ADMINISTERED, MUSCLE RUB APPLIED AND FREQUENT REPOSITIONS WERE INEFFECTIVE UNTIL THE PT FELL ASLEEP AROUND 0030. THE PT HAS SINCE BEEN SLEEPING AND HAS NOT AWOKE TO ENDORSE ANY PAIN. THE PT IS AXO X4 AND BEDREST R/T TO DEBILITION R/T TO A PRIOR CVA. ALL MEPILEX WERE CHANGED THIS SHIFT. THE PT IS ABLE TO USE HER EASY TOUCH CALL LIGHT TO THEN USE HER BED BATES. THE PT HAS DENIED ANY SOB, CHEST PAIN/PRESSURE OR N/V THIS SHIFT. CURRENTLY THE PT IS SLEEPIING WITH THE BED IN THE LOWEST POSITION AND THE EASY TOUCH CALL LIGHT WITHIN REACH. FIRE SAFETY MAINTAINED T/O THE SHIFT.
[2023-05-21 08:00] VITALS: BP 123/85
--- NOTE | 2023-05-21 15:52 | NUR ---
SHIFT SUMMARY MS ZHANG IS OX4, ON BEDREST, TURNS Q2HRS WITH 2 PEOPLE TO REPOSITION HER. HER LIMBS ARE STIFF AND CONTRACTED WITH LIMITED MOVEMENT. SHE IS ON AN EGGCRATE MATTRESS WITH MEPILEX TO HER BACK WOUND, EXAMINED BUT NOT CHANGED TODAY. PHOTOGRAPHS IN CHART FROM 05/17/23. MEPILEX TO BILATERAL HEELS FOR PROTECTION. LOOSE INCONTINENT STOOLS X3 SO FAR THIS SHIFT. SMALL SKIN TEAR AND REDNESS ON COCCYX, AREA KEPT CLEAN AND PRESSURE RELIEF. C/O GENERALISED BACK DISCOMFORT BUT TOLERATING TURNS FAIRLY WELL. VOIDED TO BEDPAN. POWER GLIDE REMOVED NOT WORKING. PICC LINE REDRESSED. BED LOW, CALL LIGHT IN REACH.
[2023-05-21 15:59] VITALS: BP 124/83
[2023-05-21 19:32] VITALS: BP 111/85
--- NOTE | 2023-05-22 01:24 | NUR ---
CARMINE FROM [facility] CALLED TO DISCUSS PT CLINICAL CONDITION. STATED THAT THEY ARE WAITING ON BED SPACE FOR PT TO TRANSFER TO [facility] AND WILL CONTINUE TO CALL DAILY FOR UPDATES ON PT CONDITION. SHE ALSO SAID THAT ANY NEGATIVE CHANGE IN PT CONDITION NEEDS TO BE REPORTED TO [facility].
--- NOTE | 2023-05-22 03:49 | NUR ---
SHIFT SUMMARY NOC PT A/O X 4. PLEASANT AND COOPERATIVE WITH CARE. PT PAIN BEING MANAGED PER EMAR AND WITH REPOSITIONING WITH MODERATE EFFECT. MEPILEX DRESSING IN PLACE ON LOWER LUMBAR/COCCYX C/D/I. PT WAS INC OF BM, BUT CONTINENT OF URINE. PT HAS PICC IN [facility] RUNNING NS KVO @ 10ML/HR. PT TAKING IV/PO ABX FOR C DIFF AND ON ISOLATION. [facility] TRANSPORTATION ECONOMICS TEACHER CALLED TO INQUIRE ABOUT UPDATE IN PT CONDITION, AND TO INFORM THAT NO BEDS ARE STILL AVAILABLE FOR PT TO TRANSFER UP TO [facility] FOR REMOVAL OF HARDWARE IN LUMBAR WOUND. PT IS CURRENTLY RESTING WITH BED IN LOWEST POSITION, AND CALL LIGHT WITHIN REACH.
[2023-05-22 05:34] VITALS: BP 118/95
[2023-05-22 07:49] VITALS: BP 124/83
[2023-05-22 14:44] VITALS: BP 109/71
--- NOTE | 2023-05-22 15:01 | NUR ---
SHIFT SUMMARY MS ZHANG IS A,OX4. TURNED AND REPOSITIONED WITH 2 PERSON ASSIST AT LEAST Q2HRLY THROUGHOUT THE DAY. NO BOWEL MOVEMENT THIS SHIFT. PAIN CONTROLLED WITH 1 NORCO AND RANGE OF MOTION EXERCISES FOR CONTRACTED LIMB PAIN. BACK WOUNDS CLEANSED AND REDRESSED AND NEW PHOTOGRAPH PUT IN THE CHART. GOOD APPETITE, REQUIRING ASSISTANCE TO EAT D/T LIMITED ARM R.O.M. BED LOW, SOFT TOUCH CALL LIGHT IN REACH. MS ZHANG HAS BEEN ASKING FOR HELP APPROPRIATELY AND HAS BEEN CALM AND ENGAGED IN CONVERSATION.
[2023-05-22 19:14] VITALS: BP 108/72
[2023-05-23 04:43] VITALS: BP 133/73
[2023-05-23 05:56] LABS: Hematocrit 34.7 % (33.0-51.0); Hemoglobin 10.7 g/dL (11.5-16.0); Mean Corpuscular HGB 24.3 pg (26.0-34.0); Mean Corpuscular HGB Conc 30.8 g/dL (31.5-36.5); Mean Corpuscular Volume 79 fL (80-100); Mean Platelet Volume 9.4 fL (9.1-12.4); Platelet Count 537 K/mm3 (150-400); RDW Coefficient Variation 18.7 % (11.7-14.2); RDW Standard Deviation 50.8 fL (35.1-46.3); White Blood Cell Count 9.35 K/mm3 (4.00-11.30)
--- NOTE | 2023-05-23 06:36 | NUR ---
PT IS A&04, BEDREST Q2 TURNS, RA, VSS, PRN PAIN MEDICATION GIVEN X3 FOR BACK PAIN, NO ACUTE OVERNIGHT EVENTS CONTINUE POC
[2023-05-23 07:48] VITALS: BP 127/75
[2023-05-23 15:01] VITALS: BP 130/67
--- NOTE | 2023-05-23 15:30 | NUR ---
SHIFT SUMMARY MS ZHANG IS A&OX4. C/O GENERALISED BACK AND LEG PAIN HELPED WITH NORCO. ROM EXERCISES HELPED LEG CRAMPING DISCOMFORT. SHE SAT UP IN RECLINER FOR APPROX 2 HOURS, MOVED OVER WITH YENI LIFT WITH 2 PERSON ASSISTANCE. MEPILEX DRESSING TO BACK WOUND C,D,I. CALL FROM RN AT [facility] - NO BEDS AVAILABLE FOR TRANSFER TODAY. 1 LARGE MOSTLY LIQUID PARTIAL FORMED STOOL THIS SHIFT. BED LOW, SOFT TOUCH CALL LIGHT IN REACH, CONT PULSE OX ON, 90S ON ROOM AIR.
[2023-05-23 19:12] VITALS: BP 131/79
--- NOTE | 2023-05-24 00:19 | NUR ---
[facility] CALLED FOR UPDATE ON PT CLINICAL CONDITION. UPDATE INCLUDED PT POSITIVE FOR ESBL IN WOUND CULTURE AND RECEIVINGN PO AUGMENTIN ABX. ALSO THAT IV ABX WERE DC AND PT ONLY RECEIVING PO VANCOMYCIN ABX FOR C DIFF. INFORMED [facility] REP THAT DURING DAY SHIFT PT SIGNIFICANT OTHER TRIED TO PERSUADE PT TO LEAVE [facility] DUE TO FRUSTRATION OF NOT BEING ABLE TO TRANSFER UP TO [facility] YET. [facility] REP STATED THAT PT IS HIGH PRIORITY BECAUSE THEY HAVE BEEN ON LIST FOR SO LONG AND THAT THEY WILL GET COORDINATION WITH PROVIDERS ON BOTH SIDES TO TRY TO EXPEDITE TRANSFER PROCESS. [facility] REP ALSO REPORTED NO BEDS AVAILABLE STILL DO TO INCREASED ACTIVITY IN PDX AREA.
[2023-05-24 03:44] VITALS: BP 134/81
--- NOTE | 2023-05-24 03:58 | NUR ---
SHIFT SUMMARY NOC PT A/O X 4. PLEASANT AND COOPERATIVE WITH CARE. PT PAIN LEVEL HAS BEEN DECREASED TONIGHT AND ONLY 1 DOSE OF NORCO HAS BEEN GIVEN THUS FAR. PT HAS BEEN ABLE TO SLEEP BETTER TONIGHT. PT IS PO ABX FOR BOTH C DIFF AND ESBL IN WOUND CULTURE. [facility] REP CALLED FOR UPDATE ON PT CONDITION AND WILL FOLLOW UP WITH PROVIDERS TO TRY AND GET PT BED AT [facility] TO REMOVE LUMBAR HARDWARE. PT MAY DISCHARGE BACK HOME TODAY AND FOLLOW UP OUTPATIENT WITH [facility] ACCORDING TO PROVIDER PROGRESS NOTE BECASUE PT IS ANXIOUS TO LEAVE HOSPITAL IF NO BED IS AVAILABLE SOON. PICC PABLITO IN PLACE AND SALINE LOCKED. PT IS CURRENTLY RESTING WITH BED IN LOWEST POSITION, AND CALL LIGHT WITHIN REACH.
[2023-05-24 07:47] VITALS: BP 141/104
[2023-05-24] MEDS ORDERED: ACET325 PO (11:43)
[2023-05-24] MEDS ORDERED: AUGMENTIN 500-1 EACH PO (11:44)
[2023-05-24] MEDS ORDERED: Norco 10-325 T1 EACH PO (11:45)
[2023-05-24] MEDS ORDERED: ASPI81CH PO (11:45)
[2023-05-24] MEDS ORDERED: METO25 PO (11:46)
[2023-05-24] MEDS ORDERED: Vancocin HCl125 MG PO (11:48)
[2023-05-24] MEDS ORDERED: VISBIOME 112.51 EACH PO (11:48)
== END 2023-05-24 17:35 | disposition home health service (06) | DRG 559 ==
LOC: ER 23:34 → PCU 05-09 03:38 → MEDS 05-09 03:38 → ICUE 05-09 03:38 → PCU 05-09 20:38 → MEDS 05-14 22:14
PROVIDERS: Emergency Medicine; Family Medicine; Internal Medicine; Pharmacist; Student in an Organized Health Care Education/Training Program; ADMIT Student in an Organized Health Care Education/Training Program
PROC: 3E033XZ Introduction of Vasopressor into Peripheral Vein, Percutaneous Approach (ICD-10-PCS; principal; 2023-05-09)
PROC: 3E03329 Introduction of Other Anti-infective into Peripheral Vein, Percutaneous Approach (ICD-10-PCS; 2023-05-09)
PROC: 02HV33Z Insertion of Infusion Device into Superior Vena Cava, Percutaneous Approach (ICD-10-PCS; 2023-05-09)
DX: T84.59XA Infection and inflammatory reaction due to other internal joint prosthesis, initial encounter (principal); A41.51 Sepsis due to Escherichia coli [E. coli]; R65.20 Severe sepsis without septic shock; I69.354 Hemiplegia and hemiparesis following cerebral infarction affecting left non-dominant side; I48.20 Chronic atrial fibrillation, unspecified; N17.9 Acute kidney failure, unspecified; E87.20 Acidosis, unspecified; E87.1 Hypo-osmolality and hyponatremia; A04.72 Enterocolitis due to Clostridium difficile, not specified as recurrent; Y83.8 Other surgical procedures as the cause of abnormal reaction of the patient, or of later complication, without mention of misadventure at the time of the procedure; I48.0 Paroxysmal atrial fibrillation; E83.39 Other disorders of phosphorus metabolism; D64.9 Anemia, unspecified; F17.210 Nicotine dependence, cigarettes, uncomplicated; J44.9 Chronic obstructive pulmonary disease, unspecified; S31.000A Unspecified open wound of lower back and pelvis without penetration into retroperitoneum, initial encounter; F15.10 Other stimulant abuse, uncomplicated; F11.10 Opioid abuse, uncomplicated; L89.319 Pressure ulcer of right buttock, unspecified stage; Z20.822 Contact with and (suspected) exposure to COVID-19; L89.159 Pressure ulcer of sacral region, unspecified stage; X58.XXXA Exposure to other specified factors, initial encounter; E87.6 Hypokalemia; D75.839 Thrombocytosis, unspecified; Z99.3 Dependence on wheelchair; Z86.718 Personal history of other venous thrombosis and embolism; Z98.890 Other specified postprocedural states; Z88.8 Allergy status to other drugs, medicaments and biological substances; Z91.041 Radiographic dye allergy status; Z86.19 Personal history of other infectious and parasitic diseases; Z79.811 Long term (current) use of aromatase inhibitors; Z79.899 Other long term (current) drug therapy; Z74.01 Bed confinement status
CPT/HCPCS: 36415; 36569; 72128; 72131; 72192; 80048; 80053; 80069; 80202; 81001; 82947; 83605; 83735; 84145; 85025; 85027; 85651; 86140; 86141; 87040; 87070; 87077; 87086; 87186; 87205; 87324; 87493; 93005; 93010; 94760; 94762; 96365; 96367; 96375; 97110; 97110-CQ; 97140; 97161; 97166; 97530; 99285-25; A9270; C1751; J0690; J0696; J1170; J1650; J2185; J2405; J3010; J3370; J7030; J7050; J7060; J7120; U0002

== ENCOUNTER 2024-01-12 13:05 | Emergency (ER) | payer OTHER ==
[~2024-01-12] VITALS: Ht 157.5 cm; Wt 59.0 kg
[~2024-01-12 13:05] MED LIST changes: +ASPI81CH PO; +AUGMENTIN 500-1 EACH PO; +METO25 PO; +Norco 10-325 T1 EACH PO; +Prinivil10 MG PO; +Vancocin HCl125 MG PO
[2024-01-12] MEDS ORDERED: DiphenhydrAMINE HCl 50 MG/ML 1ML Vial IV ONE (15:25)
[2024-01-12 15:46] LABS: BASOPHILS ABSOLUTE AUTO 0.07 K/mm3 (0.00-0.23); BASOPHILS PERCENT AUTO 1 % (0-2); EOSINOPHILS ABSOLUTE AUTO 0.16 K/mm3 (0.00-0.68); EOSINOPHILS PERCENT AUTO 2 % (0-6); Hematocrit 44.6 % (33.0-51.0); Hemoglobin 14.3 g/dL (11.5-16.0); IMMATURE GRAN ABSOLUTE AUTO 0.01 K/mm3 (0.00-0.10); IMMATURE GRAN PERCENT AUTO 0 % (0-1); LYMPHOCYTES ABSOLUTE AUTO 2.23 K/mm3 (0.84-5.20); LYMPHOCYTES PERCENT AUTO 31 % (21-46); MONOCYTES ABSOLUTE AUTO 0.47 K/mm3 (0.16-1.47); MONOCYTES PERCENT AUTO 7 % (4-13); Mean Corpuscular HGB 26.8 pg (26.0-34.0); Mean Corpuscular HGB Conc 32.1 g/dL (31.5-36.5); Mean Corpuscular Volume 84 fL (80-100); Mean Platelet Volume 9.1 fL (9.1-12.4); NEUTROPHILS ABSOLUTE AUTO 4.26 K/mm3 (1.96-9.15); NEUTROPHILS PERCENT AUTO 59 % (41-73); Platelet Count 416 K/mm3 (150-400); RDW Coefficient Variation 14.2 % (11.7-14.2); RDW Standard Deviation 43.3 fL (35.1-46.3); Red Blood Cell Count 5.33 M/mm3 (3.80-5.20)
[2024-01-12 16:14] LABS: Albumin, Blood 3.4 g/dL (3.4-5.0); Albumin/Globulin Ratio 0.7 (0.8-1.8); Bilirubin, Total 0.7 mg/dL (0.1-1.0); Bun/Creatinine Ratio 24.6 (12.0-20.0); Calcium, Blood 9.8 mg/dL (8.5-10.1); Creatinine, Blood 0.53 mg/dL (0.40-1.00); Globulin, Blood 5.2 g/dL (2.2-4.0); Potassium, Blood 4.4 mmol/L (3.5-5.5); Total Protein, Blood 8.6 g/dL (6.4-8.2)
[2024-01-12] MEDS ORDERED: CEPH500 PO (17:20)
[2024-01-12] MEDS ORDERED: Cephalexin Monohydrate 500 MG Cap PO ONE (17:20)
[2024-01-12 19:45] VITALS: BP 103/73
== END 2024-01-12 19:59 | disposition home or self-care (01) ==
LOC: ER 13:05
PROVIDERS: Emergency Medicine
DX: L03.312 Cellulitis of back [any part except buttock and flank] (principal); F17.210 Nicotine dependence, cigarettes, uncomplicated; J44.9 Chronic obstructive pulmonary disease, unspecified; Z79.82 Long term (current) use of aspirin; Z79.899 Other long term (current) drug therapy; Z91.041 Radiographic dye allergy status; Z88.8 Allergy status to other drugs, medicaments and biological substances
CPT/HCPCS: 74177; 80053; 85025; 99284-25; A9270; J1200; Q9967

== ENCOUNTER 2024-06-05 14:06 | Emergency (ER) | payer OTHER ==
[~2024-06-05] VITALS: Ht 160 cm; Wt 59.9 kg
[2024-06-05 15:21] LABS: BASOPHILS ABSOLUTE AUTO 0.06 K/mm3 (0.00-0.23); BASOPHILS PERCENT AUTO 1 % (0-2); EOSINOPHILS ABSOLUTE AUTO 0.18 K/mm3 (0.00-0.68); EOSINOPHILS PERCENT AUTO 3 % (0-6); Hematocrit 37.7 % (33.0-51.0); Hemoglobin 11.7 g/dL (11.5-16.0); IMMATURE GRAN ABSOLUTE AUTO 0.02 K/mm3 (0.00-0.10); IMMATURE GRAN PERCENT AUTO 0 % (0-1); LYMPHOCYTES ABSOLUTE AUTO 2.42 K/mm3 (0.84-5.20); LYMPHOCYTES PERCENT AUTO 35 % (21-46); MONOCYTES PERCENT AUTO 6 % (4-13); Mean Corpuscular HGB 24.3 pg (26.0-34.0); Mean Corpuscular Volume 78 fL (80-100); Mean Platelet Volume 9.2 fL (9.1-12.4); NEUTROPHILS PERCENT AUTO 56 % (41-73); Platelet Count 326 K/mm3 (150-400); RDW Coefficient Variation 15.3 % (11.7-14.2); RDW Standard Deviation 43.6 fL (35.1-46.3); Red Blood Cell Count 4.81 M/mm3 (3.80-5.20); White Blood Cell Count 6.98 K/mm3 (4.00-11.30)
[2024-06-05 15:49] LABS: Albumin, Blood 2.8 g/dL (3.4-5.0); Albumin/Globulin Ratio 0.5 (0.8-1.8); Bilirubin, Total 0.5 mg/dL (0.1-1.0); Bun/Creatinine Ratio 38.4 (12.0-20.0); Calcium, Blood 9.4 mg/dL (8.5-10.1); Creatinine, Blood 0.37 mg/dL (0.40-1.00); Globulin, Blood 5.5 g/dL (2.2-4.0); Potassium, Blood 4.3 mmol/L (3.5-5.5); Total Protein, Blood 8.3 g/dL (6.4-8.2)
[2024-06-05 16:27] LABS: Source, Urine Straight Cath
[2024-06-05 16:30] LABS: Appearance, Urine Hazy (Clear); Bilirubin, Urine Neg (Neg); Blood, Urine 2+ (Neg); Color, Urine Yellow (P-Yellow); Glucose Qualitative, Urine Neg (Neg); Ketones, Urine Neg (Neg); Leukocyte Esterase, Urine 3+ (Neg); Nitrite, Urine Neg (Neg); Protein, Urine 1+ (Neg); Urobilinogen, Urine NORM (Normal)
[2024-06-05 16:45] LABS: Bacteria Many /hpf; Granular Casts 0-2 /lpf (0); Squamous Epithelial Cells Mod /hpf (Few); Transitional Epithelial Cells Few /hpf (0-Rare); White Blood Cells, Urine 50-100 /hpf (0-5)
[2024-06-05] MEDS ORDERED: NS 1,000 ML IV SCH (17:30)
[2024-06-05] MEDS ORDERED: CEPH500 PO (19:25)
[2024-06-05] MEDS ORDERED: Cephalexin Monohydrate 500 MG Cap PO ONE (19:25)
[2024-06-05] MEDS ORDERED: Trimethoprim/Sulfamethoxazole DS Tab PO ONE (19:25)
[2024-06-05] MEDS ORDERED: BACTRIM DS TAB1 EAC1 PO (19:25)
[2024-06-05 20:30] VITALS: BP 98/69
== END 2024-06-05 20:46 | disposition home or self-care (01) ==
LOC: ER 14:06
PROVIDERS: Emergency Medicine; Student in an Organized Health Care Education/Training Program
DX: N39.0 Urinary tract infection, site not specified (principal); S31.000A Unspecified open wound of lower back and pelvis without penetration into retroperitoneum, initial encounter; X58.XXXA Exposure to other specified factors, initial encounter; J44.9 Chronic obstructive pulmonary disease, unspecified; I69.954 Hemiplegia and hemiparesis following unspecified cerebrovascular disease affecting left non-dominant side; Z99.3 Dependence on wheelchair; Z88.8 Allergy status to other drugs, medicaments and biological substances; Z91.041 Radiographic dye allergy status; Z79.82 Long term (current) use of aspirin; Z79.899 Other long term (current) drug therapy
CPT/HCPCS: 74177; 80053; 81001; 83690; 85025; 87077; 87086; 87186; 96360-59; 99284-25; A9270; J7030; Q9967

== ENCOUNTER → 2024-06-21 | Outpatient (CLI) | payer OTHER ==
[~2024-06-21] MED LIST changes: +BACTRIM DS TAB1 EAC1 PO
[2024-06-21 11:29] LABS: Source, Urine Clean Catch
[2024-06-21 13:14] LABS: Appearance, Urine Hazy (Clear); Bilirubin, Urine Neg (Neg); Blood, Urine 1+ (Neg); Color, Urine Yellow (P-Yellow); Glucose Qualitative, Urine Neg (Neg); Ketones, Urine Neg (Neg); Leukocyte Esterase, Urine 3+ (Neg); Nitrite, Urine Pos (Neg); Protein, Urine 1+ (Neg); Urobilinogen, Urine NORM (Normal)
[2024-06-21 14:01] LABS: Squamous Epithelial Cells Rare /hpf (Few); White Blood Cells, Urine TNTC /hpf (0-5)
[2024-06-21 14:02] LABS: Bacteria Mod /hpf
== END ==
LOC: LAB 11:26 → LAB SHORT 11:26
PROVIDERS: Student in an Organized Health Care Education/Training Program
DX: N39.0 Urinary tract infection, site not specified (principal); R82.90 Unspecified abnormal findings in urine
CPT/HCPCS: 81001; 87086

== ENCOUNTER 2024-06-23 14:02 | Emergency (ER) | payer OTHER ==
[~2024-06-23] VITALS: Ht 157.5 cm; Wt 59.0 kg
[2024-06-23 14:27] LABS: Source, Urine Straight Cath
[2024-06-23 14:31] LABS: Appearance, Urine Hazy (Clear); Bilirubin, Urine Neg (Neg); Blood, Urine 1+ (Neg); Color, Urine Yellow (P-Yellow); Glucose Qualitative, Urine Neg (Neg); Ketones, Urine Neg (Neg); Leukocyte Esterase, Urine 3+ (Neg); Nitrite, Urine Pos (Neg); Protein, Urine 1+ (Neg); Urobilinogen, Urine NORM (Normal)
[2024-06-23] MEDS ORDERED: CefTRIAXone Sodium 1,000 MG in NS 100 ML IV ONE (14:35)
[2024-06-23 14:39] LABS: Bacteria Many /hpf; Renal Epithelial Rare /hpf (0-Rare); Squamous Epithelial Cells Few /hpf (Few); White Blood Cells, Urine 25-50 /hpf (0-5)
[2024-06-23] MEDS ORDERED: CEFD300 PO (15:07)
[2024-06-23 16:49] VITALS: BP 129/85
== END 2024-06-23 17:26 | disposition home or self-care (01) ==
LOC: ER 14:02
PROVIDERS: Emergency Medicine
DX: N39.0 Urinary tract infection, site not specified (principal); J44.9 Chronic obstructive pulmonary disease, unspecified; I48.91 Unspecified atrial fibrillation; Z79.82 Long term (current) use of aspirin; Z79.899 Other long term (current) drug therapy; Z88.8 Allergy status to other drugs, medicaments and biological substances
CPT/HCPCS: 51701; 81001; 87077; 87086; 87186; 96365; 99283-25; J0696

== ENCOUNTER 2024-07-03 12:09 | Emergency (ER) | payer OTHER ==
[~2024-07-03] VITALS: Ht 157.5 cm; Wt 59.0 kg
[2024-07-03 15:26] LABS: Base Excess Venous 3.2 mmol/L; Bicarbonate Venous 27.2 mmol/L (24.0-30.0); PCO2 Venous 38.7 mmHg (38-42); pH Blood Venous 7.45 (7.34-7.37)
[2024-07-03 15:45] LABS: Albumin, Blood 3.1 g/dL (3.4-5.0); Albumin/Globulin Ratio 0.6 (0.8-1.8); Bilirubin, Total 0.6 mg/dL (0.1-1.0); Bun/Creatinine Ratio 29.8 (12.0-20.0); Calcium, Blood 9.5 mg/dL (8.5-10.1); Creatinine, Blood 0.3 mg/dL (0.40-1.00); Globulin, Blood 5.5 g/dL (2.2-4.0); Potassium, Blood 4.5 mmol/L (3.5-5.5); Total Protein, Blood 8.6 g/dL (6.4-8.2)
[2024-07-03 16:02] LABS: BASOPHILS PERCENT AUTO 1 % (0-2); EOSINOPHILS PERCENT AUTO 3 % (0-6); Hematocrit 42.2 % (33.0-51.0); Hemoglobin 13.4 g/dL (11.5-16.0); IMMATURE GRAN ABSOLUTE AUTO 0.06 K/mm3 (0.00-0.10); IMMATURE GRAN PERCENT AUTO 1 % (0-1); LYMPHOCYTES ABSOLUTE AUTO 2.87 K/mm3 (0.84-5.20); LYMPHOCYTES PERCENT AUTO 27 % (21-46); MONOCYTES ABSOLUTE AUTO 0.47 K/mm3 (0.16-1.47); MONOCYTES PERCENT AUTO 4 % (4-13); Mean Corpuscular HGB 24.4 pg (26.0-34.0); Mean Corpuscular HGB Conc 31.8 g/dL (31.5-36.5); Mean Corpuscular Volume 77 fL (80-100); NEUTROPHILS ABSOLUTE AUTO 6.93 K/mm3 (1.96-9.15); NEUTROPHILS PERCENT AUTO 65 % (41-73); NRBC ABSOLUTE 0.02 K/mm3 (0.00-0.02); NRBC Auto 0.2 /100 WBC (0.0-0.2); RDW Coefficient Variation 16.8 % (11.7-14.2); RDW Standard Deviation 45.6 fL (35.1-46.3); White Blood Cell Count 10.73 K/mm3 (4.00-11.30)
[2024-07-03 16:15] LABS: Platelet Count 358 K/mm3 (150-400)
[2024-07-03 16:26] VITALS: BP 115/77
== END 2024-07-03 16:58 | disposition left against medical advice (07) ==
LOC: ER 12:09
PROVIDERS: Emergency Medicine
DX: R06.02 Shortness of breath (principal); R07.9 Chest pain, unspecified; R10.9 Unspecified abdominal pain; Z53.29 Procedure and treatment not carried out because of patient's decision for other reasons
CPT/HCPCS: 80053; 82803; 83605; 85025; 93005; 93010; 99283-25

== ENCOUNTER → 2024-08-04 | Outpatient (CLI) | payer OTHER ==
[2024-08-04 14:34] LABS: Source, Urine Voided
[2024-08-04 15:35] LABS: Appearance, Urine Cloudy (Clear); Bilirubin, Urine Neg (Neg); Blood, Urine 1+ (Neg); Color, Urine Yellow (P-Yellow); Glucose Qualitative, Urine Neg (Neg); Ketones, Urine 3+ (Neg); Leukocyte Esterase, Urine 2+ (Neg); Nitrite, Urine Neg (Neg); Protein, Urine 1+ (Neg); Specific Gravity, Urine 1.025 (1.003-1.022); Urobilinogen, Urine NORM (Normal)
[2024-08-04 15:45] LABS: Amorphous Heavy (0-Heavy); Calcium Oxalate Crystals Mod /hpf
[2024-08-04 15:47] LABS: Bacteria Many /hpf; Squamous Epithelial Cells Few /hpf (Few); Transitional Epithelial Cells Rare /hpf (0-Rare)
== END | disposition home or self-care (01) ==
LOC: LAB 14:31 → LAB SHORT 14:31
PROVIDERS: Student in an Organized Health Care Education/Training Program
DX: Z48.01 Encounter for change or removal of surgical wound dressing (principal); Z47.89 Encounter for other orthopedic aftercare
CPT/HCPCS: 81001; 87086

== ENCOUNTER 2024-09-14 17:02 | Emergency (ER) | payer OTHER ==
[~2024-09-14] VITALS: Ht 157.5 cm; Wt 63.5 kg
[2024-09-14] MEDS ORDERED: NS 1,000 ML IV SCH (18:55)
[2024-09-14] MEDS ORDERED: CefTRIAXone Sodium 1,000 MG in NS 100 ML IV ONE (19:00)
[2024-09-14 19:15] LABS: BASOPHILS ABSOLUTE AUTO 0.07 K/mm3 (0.00-0.23); BASOPHILS PERCENT AUTO 1 % (0-2); EOSINOPHILS ABSOLUTE AUTO 0.27 K/mm3 (0.00-0.68); EOSINOPHILS PERCENT AUTO 2 % (0-6); Hematocrit 36.2 % (33.0-51.0); Hemoglobin 11.4 g/dL (11.5-16.0); IMMATURE GRAN ABSOLUTE AUTO 0.03 K/mm3 (0.00-0.10); IMMATURE GRAN PERCENT AUTO 0 % (0-1); LYMPHOCYTES ABSOLUTE AUTO 2.09 K/mm3 (0.84-5.20); LYMPHOCYTES PERCENT AUTO 19 % (21-46); MONOCYTES ABSOLUTE AUTO 0.71 K/mm3 (0.16-1.47); MONOCYTES PERCENT AUTO 6 % (4-13); Mean Corpuscular HGB 23.9 pg (26.0-34.0); Mean Corpuscular HGB Conc 31.5 g/dL (31.5-36.5); Mean Corpuscular Volume 76 fL (80-100); Mean Platelet Volume 9.3 fL (9.1-12.4); NEUTROPHILS PERCENT AUTO 72 % (41-73); Platelet Count 364 K/mm3 (150-400); RDW Coefficient Variation 16.7 % (11.7-14.2); RDW Standard Deviation 46.2 fL (35.1-46.3); Red Blood Cell Count 4.76 M/mm3 (3.80-5.20); White Blood Cell Count 11.17 K/mm3 (4.00-11.30)
[2024-09-14 19:39] LABS: Albumin, Blood 2.7 g/dL (3.4-5.0); Albumin/Globulin Ratio 0.5 (0.8-1.8); Bilirubin, Total 1.1 mg/dL (0.1-1.0); Bun/Creatinine Ratio 20.5 (12.0-20.0); Calcium, Blood 9.5 mg/dL (8.5-10.1); Creatinine, Blood 0.29 mg/dL (0.40-1.00); Globulin, Blood 5.3 g/dL (2.2-4.0); Potassium, Blood 3.3 mmol/L (3.5-5.5)
[2024-09-14] MEDS ORDERED: CEPH500 PO (21:05)
[2024-09-14] MEDS ORDERED: SULTRIDS PO (21:05)
[2024-09-14] MEDS ORDERED: Trimethoprim/Sulfamethoxazole DS Tab PO ONE (21:10)
[2024-09-14 22:48] VITALS: BP 139/76
== END 2024-09-14 22:50 | disposition home or self-care (01) ==
LOC: ER 17:02
PROVIDERS: Student in an Organized Health Care Education/Training Program
DX: L02.212 Cutaneous abscess of back [any part, except buttock and flank] (principal); L03.312 Cellulitis of back [any part except buttock and flank]; J44.9 Chronic obstructive pulmonary disease, unspecified; I48.91 Unspecified atrial fibrillation; Z86.73 Personal history of transient ischemic attack (TIA), and cerebral infarction without residual deficits; Z79.899 Other long term (current) drug therapy; Z88.8 Allergy status to other drugs, medicaments and biological substances
CPT/HCPCS: 36415; 80053; 83605; 85025; 96365; 99283-25; A9270; J0696; J7030

== ENCOUNTER → 2024-09-14 | Outpatient (CLI) | payer OTHER | LOC: LAB SHORT 17:21 → LAB 17:21 | DX: L02.91 Cutaneous abscess, unspecified (principal) | CPT/HCPCS: 87070; 87075; 87076; 87077; 87185; 87186; 87205 ==

== ENCOUNTER 2025-01-24 03:24 | Day surgery (SDC) | payer OTHER | END 2025-01-24 23:00 | disposition home or self-care (01) | LOC: WOUND 03:24 | DX: L89.133 Pressure ulcer of right lower back, stage 3 (principal); J44.89 Other specified chronic obstructive pulmonary disease; I10 Essential (primary) hypertension; I25.2 Old myocardial infarction; Z88.8 Allergy status to other drugs, medicaments and biological substances; Z91.041 Radiographic dye allergy status; Z99.81 Dependence on supplemental oxygen | CPT/HCPCS: A6213; G0463 ==

== ENCOUNTER → 2025-01-29 | Outpatient (CLI) | payer OTHER ==
[2025-01-29 13:41] LABS: Source, Urine Clean Catch
[2025-01-29 14:06] LABS: Appearance, Urine Cloudy (Clear); Bilirubin, Urine Neg (Neg); Blood, Urine 4+ (Neg); Color, Urine Yellow (P-Yellow); Glucose Qualitative, Urine Neg (Neg); Ketones, Urine 1+ (Neg); Leukocyte Esterase, Urine 3+ (Neg); Nitrite, Urine Neg (Neg); Protein, Urine 4+ (Neg); Specific Gravity, Urine 1.015 (1.003-1.022); Urobilinogen, Urine NORM (Normal)
[2025-01-29 15:02] LABS: Triple Phosphate Crystals Mod /hpf
[2025-01-29 15:03] LABS: White Blood Cells, Urine TNTC /hpf (0-5)
[2025-01-29 15:04] LABS: Bacteria Many /hpf; Squamous Epithelial Cells Rare /hpf (Few)
== END ==
LOC: LAB SHORT 13:39 → LAB 13:39
PROVIDERS: Student in an Organized Health Care Education/Training Program
DX: N39.0 Urinary tract infection, site not specified (principal)
CPT/HCPCS: 81001; 87077; 87086; 87186

== ENCOUNTER 2025-02-09 08:00 | Day surgery (SDC) | payer OTHER | END 2025-02-09 23:46 | disposition home or self-care (01) | LOC: WOUND 08:00 | DX: L89.133 Pressure ulcer of right lower back, stage 3 (principal) | CPT/HCPCS: A6213; G0463 ==

== ENCOUNTER 2025-03-13 02:55 | Day surgery (SDC) | payer OTHER ==
[2025-03-13] MEDS ORDERED: Lidocaine HCl 4% Cream 5 GM ONE (15:11)
== END 2025-03-13 23:00 | disposition home or self-care (01) ==
LOC: WOUND 02:55
DX: L89.133 Pressure ulcer of right lower back, stage 3 (principal); L89.512 Pressure ulcer of right ankle, stage 2
CPT/HCPCS: A6213; A9270; G0463

== ENCOUNTER 2025-03-15 16:14 | Emergency (ER) | payer OTHER ==
[~2025-03-15] VITALS: Ht 157.5 cm; Wt 56.7 kg
[2025-03-15 16:39] VITALS: BP 116/79
[2025-03-15] MEDS ORDERED: Ketorolac Tromethamine 15mg Vial IM ONE (16:40)
== END 2025-03-15 22:06 | disposition home or self-care (01) ==
LOC: ER 16:14
DX: S93.601A Unspecified sprain of right foot, initial encounter (principal); I48.91 Unspecified atrial fibrillation; J44.9 Chronic obstructive pulmonary disease, unspecified; Z91.041 Radiographic dye allergy status; Z79.899 Other long term (current) drug therapy; Z88.8 Allergy status to other drugs, medicaments and biological substances; Z79.82 Long term (current) use of aspirin; Z79.2 Long term (current) use of antibiotics; Z86.73 Personal history of transient ischemic attack (TIA), and cerebral infarction without residual deficits; X58.XXXA Exposure to other specified factors, initial encounter; Z59.89 Other problems related to housing and economic circumstances
CPT/HCPCS: 73630; 96372; 99283-25; J1885

== ENCOUNTER 2025-03-29 02:18 | Day surgery (SDC) | payer OTHER ==
[2025-03-29] MEDS ORDERED: Lidocaine HCl 4% Cream 5 GM ONE (13:00)
== END 2025-03-29 23:00 | disposition home or self-care (01) ==
LOC: WOUND 02:18
DX: L89.133 Pressure ulcer of right lower back, stage 3 (principal); L89.512 Pressure ulcer of right ankle, stage 2
CPT/HCPCS: A6213; A9270

== ENCOUNTER 2025-04-11 04:01 | Day surgery (SDC) | payer OTHER | END 2025-04-11 23:00 | disposition home or self-care (01) | LOC: WOUND 04:01 | DX: L89.133 Pressure ulcer of right lower back, stage 3 (principal); L89.512 Pressure ulcer of right ankle, stage 2 | CPT/HCPCS: G0463 ==

== ENCOUNTER 2025-04-24 04:59 | Day surgery (SDC) | payer OTHER | END 2025-04-24 23:00 | disposition home or self-care (01) | LOC: WOUND 04:59 | DX: L89.133 Pressure ulcer of right lower back, stage 3 (principal) | CPT/HCPCS: A6213; G0463 ==

== ENCOUNTER 2025-05-16 02:52 | Day surgery (SDC) | payer OTHER | END 2025-05-16 23:00 | disposition home or self-care (01) | LOC: WOUND 02:52 | DX: L89.133 Pressure ulcer of right lower back, stage 3 (principal); L98.422 Non-pressure chronic ulcer of back with fat layer exposed | CPT/HCPCS: A6213; G0463 ==

== ENCOUNTER 2025-05-30 02:28 | Day surgery (SDC) | payer OTHER | END 2025-05-30 23:00 | disposition home or self-care (01) | LOC: WOUND 02:28 | DX: L89.103 Pressure ulcer of unspecified part of back, stage 3 (principal); L89.323 Pressure ulcer of left buttock, stage 3 | CPT/HCPCS: A6213; G0463 ==

== ENCOUNTER 2025-07-04 16:32 | Emergency (ER) | payer OTHER ==
[~2025-07-04] VITALS: Ht 160 cm; Wt 53.5 kg
[2025-07-04 18:39] LABS: BASOPHILS ABSOLUTE AUTO 0.08 K/mm3 (0.00-0.23); BASOPHILS PERCENT AUTO 1 % (0-2); EOSINOPHILS ABSOLUTE AUTO 0.24 K/mm3 (0.00-0.68); EOSINOPHILS PERCENT AUTO 2 % (0-6); Hematocrit 44.6 % (33.0-51.0); Hemoglobin 14.2 g/dL (11.5-16.0); IMMATURE GRAN ABSOLUTE AUTO 0.06 K/mm3 (0.00-0.10); IMMATURE GRAN PERCENT AUTO 1 % (0-1); LYMPHOCYTES ABSOLUTE AUTO 2.72 K/mm3 (0.84-5.20); LYMPHOCYTES PERCENT AUTO 22 % (21-46); MONOCYTES ABSOLUTE AUTO 0.54 K/mm3 (0.16-1.47); MONOCYTES PERCENT AUTO 4 % (4-13); Mean Corpuscular HGB Conc 31.8 g/dL (31.5-36.5); Mean Corpuscular Volume 80 fL (80-100); NEUTROPHILS ABSOLUTE AUTO 8.61 K/mm3 (1.96-9.15); NRBC ABSOLUTE 0.00 K/mm3 (0.00-0.02); NRBC Auto 0.0 /100 WBC (0.0-0.2); Platelet Count 469 K/mm3 (150-400); RDW Coefficient Variation 15.1 % (11.7-14.2); RDW Standard Deviation 43.3 fL (35.1-46.3)
[2025-07-04 18:40] LABS: NEUTROPHILS PERCENT AUTO 7 % (41-73)
[2025-07-04 20:09] LABS: Alanine Aminotransfer (ALT/SGP 19.0 U/L (12-78); Albumin, Blood 3.3 g/dL (3.4-5.0); Albumin/Globulin Ratio 0.6 (0.8-1.8); Anion Gap 7.0 mmol/L (3-11); Aspartate Aminotrans (AST/SGOT 16.0 U/L (12-37); Bilirubin, Total 0.6 mg/dL (0.1-1.0); Blood Urea Nitrogen 9.0 mg/dL (8-24); CO2, Blood 27.0 mmol/L (21-32); Calcium, Blood 9.3 mg/dL (8.5-10.1); Chloride, Blood 102.0 mmol/L (98-108); Creatinine, Blood 0.34 mg/dL (0.40-1.00); Globulin, Blood 5.3 g/dL (2.2-4.0); Glucose, Blood 98.0 mg/dL (70-99); Potassium, Blood 3.9 mmol/L (3.5-5.5); Sodium, Blood 132.0 mmol/L (136-145); Total Protein, Blood 8.6 g/dL (6.4-8.2)
[2025-07-04 21:20] VITALS: BP 133/86
== END 2025-07-04 22:39 | disposition home or self-care (01) ==
LOC: ER 16:32
PROVIDERS: Emergency Medicine; Student in an Organized Health Care Education/Training Program
DX: L89.109 Pressure ulcer of unspecified part of back, unspecified stage (principal)
CPT/HCPCS: 72126; 72129; 72132; 80053; 85025; 99284-25; Q9967

== ENCOUNTER 2025-08-22 00:28 | Day surgery (SDC) | payer OTHER | END 2025-08-22 23:00 | disposition home or self-care (01) | LOC: WOUND 00:28 | DX: L89.103 Pressure ulcer of unspecified part of back, stage 3 (principal) | CPT/HCPCS: A6213; G0463 ==

== ENCOUNTER → 2025-08-24 | Outpatient (CLI) | payer OTHER ==
[~2025-08-24] MED LIST changes: +PROM25 PO; +Robaxin750 MG
[2025-08-24 13:17] LABS: Albumin, Blood 2.7 g/dL (3.4-5.0); Prealbumin, Blood 11.8 mg/dL (20.0-40.0)
== END ==
LOC: LAB SHORT 11:39 → LAB 11:39
PROVIDERS: Surgery
DX: L89.103 Pressure ulcer of unspecified part of back, stage 3 (principal)
CPT/HCPCS: 82040; 84134; G0480

== ENCOUNTER 2025-09-06 07:15 | Emergency (ER) | payer OTHER ==
[~2025-09-06] VITALS: Ht 160 cm; Wt 53.5 kg
[~2025-09-06 07:15] MED LIST changes: -PROM25 PO; -Robaxin750 MG
[2025-09-06] MEDS ORDERED: Robaxin750 MG (07:25)
[2025-09-06 08:03] LABS: BASOPHILS ABSOLUTE AUTO 0.04 K/mm3 (0.00-0.23); BASOPHILS PERCENT AUTO 0 % (0-2); EOSINOPHILS ABSOLUTE AUTO 0.04 K/mm3 (0.00-0.68); EOSINOPHILS PERCENT AUTO 0 % (0-6); Hematocrit 46.7 % (33.0-51.0); Hemoglobin 14.6 g/dL (11.5-16.0); IMMATURE GRAN ABSOLUTE AUTO 0.04 K/mm3 (0.00-0.10); IMMATURE GRAN PERCENT AUTO 0 % (0-1); LYMPHOCYTES ABSOLUTE AUTO 1.20 K/mm3 (0.84-5.20); LYMPHOCYTES PERCENT AUTO 12 % (21-46); MONOCYTES ABSOLUTE AUTO 0.32 K/mm3 (0.16-1.47); MONOCYTES PERCENT AUTO 3 % (4-13); Mean Corpuscular HGB Conc 31.3 g/dL (31.5-36.5); Mean Corpuscular Volume 79 fL (80-100); NEUTROPHILS ABSOLUTE AUTO 8.26 K/mm3 (1.96-9.15); NEUTROPHILS PERCENT AUTO 84 % (41-73); NRBC ABSOLUTE 0.00 K/mm3 (0.00-0.02); NRBC Auto 0.0 /100 WBC (0.0-0.2); Platelet Count 464 K/mm3 (150-400); RDW Coefficient Variation 16.9 % (11.7-14.2); RDW Standard Deviation 47.8 fL (35.1-46.3)
[2025-09-06] MEDS ORDERED: Ondansetron HCl 2 MG / ML 2ML Vial IV ONE ×2 (08:40→11:20)
[2025-09-06] MEDS ORDERED: NS 1,000 ML IV SCH (08:40)
[2025-09-06 08:46] LABS: Alanine Aminotransfer (ALT/SGP 17.0 U/L (12-78); Albumin, Blood 3.7 g/dL (3.4-5.0); Albumin/Globulin Ratio 0.6 (0.8-1.8); Anion Gap 10.0 mmol/L (3-11); Aspartate Aminotrans (AST/SGOT 16.0 U/L (12-37); Bilirubin, Total 0.9 mg/dL (0.1-1.0); Blood Urea Nitrogen 8.0 mg/dL (8-24); CO2, Blood 28.0 mmol/L (21-32); Calcium, Blood 9.7 mg/dL (8.5-10.1); Chloride, Blood 103.0 mmol/L (98-108); Creatinine, Blood 0.33 mg/dL (0.40-1.00); Globulin, Blood 5.7 g/dL (2.2-4.0); Glucose, Blood 117.0 mg/dL (70-99); Potassium, Blood 3.7 mmol/L (3.5-5.5); Sodium, Blood 137.0 mmol/L (136-145); Total Protein, Blood 9.4 g/dL (6.4-8.2)
[2025-09-06] MEDS ORDERED: PROM25 PO (10:48)
[2025-09-06 11:21] VITALS: BP 124/78
== END 2025-09-06 11:51 | disposition home or self-care (01) ==
LOC: ER 07:15
PROVIDERS: Emergency Medicine
DX: A08.4 Viral intestinal infection, unspecified (principal)
CPT/HCPCS: 80053; 83690; 84484; 85025; 93005; 93010; 96361; 96374; 96376; 99284-25; A9270; J2405; J7030

== ENCOUNTER 2025-09-12 08:28 | Day surgery (SDC) | payer OTHER ==
[~2025-09-12 08:28] MED LIST changes: +PROM25 PO; +Robaxin750 MG
[2025-09-12] MEDS ORDERED: Lidocaine HCl 4% Cream 5 GM ONE (15:12)
== END 2025-09-12 23:00 | disposition home or self-care (01) ==
LOC: WOUND 08:28
DX: L89.103 Pressure ulcer of unspecified part of back, stage 3 (principal); T23.202D Burn of second degree of left hand, unspecified site, subsequent encounter; G47.30 Sleep apnea, unspecified; I10 Essential (primary) hypertension; I25.2 Old myocardial infarction; J44.89 Other specified chronic obstructive pulmonary disease; B19.20 Unspecified viral hepatitis C without hepatic coma; Z86.73 Personal history of transient ischemic attack (TIA), and cerebral infarction without residual deficits
CPT/HCPCS: A6196; A6213; A9270; G0463